=== PATIENT | female | born 1945 | race Caucasian/White ===

== ENCOUNTER 2017-06-05 21:24 | Emergency (ER) | payer MEDICARE ==
[~2017-06-05] VITALS: Ht 162.6 cm; Wt 45.4 kg
[~2017-06-05 21:24] MED LIST: ALBU18HF IH; AZIT250T PO; CEFP200T PO; DOCU-109 PO; DOXY100T9 PO; MAGN400C PO; TIOT4MIS3 IH
[2017-06-05] MEDS ORDERED: IPRATRPIUM/ALBUTEROL 0.5/2.5MG 3 ML NEBU. ONE (21:40)
[2017-06-05] MEDS ORDERED: IPRA3AMP NEB (22:26)
[2017-06-05] MEDS ORDERED: PRED20TA PO (22:26)
--- NOTE | 2017-06-05 22:28 | PHYS DOC ---
General Chief Complaint: SHORTNESS OF BREATH Stated Complaint: DIFFICULTY BREATHING Time Seen by MD: 22:23 Problems: History of Present Illness Allergies: Coded Allergies: influenza virus vaccine ts [id number] (36 mos+) (Verified Allergy, Unknown , 05/19/16) Orders, Labs, Meds EKG: Normal sinus rhythm 81 bpm, artifact noted anterior leads no true ST segment elevation, interpreted by me Departure Time of Disposition: 22:27 Disposition: 01 HOME, SELF-CARE Diagnosis: COPD exacerbation Condition: IMPROVED Patient Instructions: Chronic Obstructive Pulmonary Disease Exacerbation, Easy- to-Read Additional Instructions: Please review the patient education materials given by ED staff. Activity as tolerated. Continue current medications. Use the Ventolin med start pack via nebulizer every 4 hours and as needed. Prescription: DuoNeb, prednisone Follow-up with your doctor this week for recheck. Return to the ED with new or changing symptoms. KAYODE SONG DO Jun 05, 2017 22:28
[2017-06-05] MEDS ORDERED: ALBUTEROL SULFATE 2.5 MG/3 ML NEBU. ONE (22:31)
[2017-06-05] MEDS ORDERED: IPRATRPIUM/ALBUTEROL 0.5/2.5MG 3 ML NEBU. NEB ONE (23:00)
[2017-06-05] MEDS ORDERED: ALBUTEROL 3ML X5 NEB STARTPACK. INH ONE (23:00)
[2017-06-05] MEDS ORDERED: methylPREDNISolone SOD SUCC PF 125 MG/2 ML VIAL. IM ONE (23:00)
[2017-06-05 23:02] VITALS: BP 106/61
== END 2017-06-05 23:15 | disposition home or self-care (01) ==
LOC: ER 21:24
DX: J44.1 Chronic obstructive pulmonary disease with (acute) exacerbation (principal); Z88.7 Allergy status to serum and vaccine
CPT/HCPCS: 94640; 96372; 99284; J2930; J7620

== ENCOUNTER 2017-06-17 07:28 | Emergency (ER) | payer MEDICARE ==
[~2017-06-17 07:28] MED LIST changes: +IPRA3AMP NEB; +PRED20TA PO
--- NOTE | 2017-06-17 07:55 | PHYS DOC ---
Past History Past Medical History: COPD, Other Past Surgical History: Tonsillectomy, Tubal ligation, Other Smoking: Cigarettes, Less than 1pk/day Alcohol Use: None Drug Use: None Adult General Chief Complaint Chief Complaint: SHORTNESS OF BREATH HPI HPI 72-year-old female patient brought in by EMS because of shortness of breath. Patient has history of COPD and currently is smoking without home oxygen. Patient states for the last 3 days she had left upper chest and left arm pain as a constant heaviness pain that getting force in the morning. Patient denies shortness of breath and nausea and palpitation and dizziness with her chest pain. Patient rated her pain 1/10. Patient states she started to have intermittent shortness of breath since yesterday afternoon without cough and fever and chills. Patient states she took a shower this morning and felt severe shortness of breath with no change of her chest pain and called EMS. EMS reports the patient had O2 sat of 100% at room air and treated with oxygen and patient felt better after starting on oxygen. Review of Systems Review of Systems Constitutional: Denies fever Eyes: Denies change in visual acuity, redness, or eye pain [] HENT: Denies nasal congestion or sore throat [] Respiratory: Reports shortness of breath Cardiovascular: No additional information not addressed in HPI [] GI: Denies abdominal pain, nausea, vomiting, bloody stools or diarrhea [] : Denies dysuria or hematuria [] Musculoskeletal: Denies back pain or joint pain [] Integument: Denies rash or skin lesions [] Neurologic: Denies headache, focal weakness or sensory changes [] Endocrine: Denies polyuria or polydipsia [] All other systems were reviewed and found to be within normal limits, except as documented in this note. Current Medications Current Medications Current Medications Medications (Trade) Dose Ordered Sig/Amanda Start Time Stop Time Status Last Admin Dose Admin Albuterol/ Ipratropium (Duoneb) 3 ml 1X ONCE 06/17/17 08:00 06/17/17 08:01 Aspirin (Children'S Aspirin) 324 mg 1X ONCE 06/17/17 08:00 06/17/17 08:01 Methylprednisolone Sodium Succinate (SOLU-Medrol 125MG VIAL) 125 mg 1X ONCE 06/17/17 08:00 06/17/17 08:01 Allergies Allergies Allergies Coded Allergies Type Severity Reaction Last Updated Verified influenza virus vaccine ts [id number] (36 mos+) Allergy Unknown 05/19/16 Yes Physical Exam Physical Exam Constitutional: Well developed, well nourished, moderate distress, non-toxic appearance, anxious. [] HENT: Normocephalic, atraumatic, bilateral external ears normal, oropharynx moist, no oral exudates, nose normal. [] Eyes: PERRLA, EOMI, conjunctiva normal, no discharge. [] Neck: Normal range of motion, no tenderness, supple, no stridor. [] Cardiovascular:Heart rate regular rhythm, no murmur [] Lungs & Thorax: Mild respiratory distress with hyperventilation and intercostal distraction, Bilateral breath sounds clear to auscultation [] Abdomen: Bowel sounds normal, soft, no tenderness, no masses, no pulsatile masses. [] Skin: Warm, dry, no erythema, no rash. [] Back: No tenderness, no CVA tenderness. [] Extremities: No tenderness, no cyanosis, no clubbing, ROM intact, no edema. [] Neurologic: Alert and oriented X 3, normal motor function, normal sensory function, no focal deficits noted. [] Psychologic: Affect normal, judgement normal, mood normal. [] EKG EKG EKG interpreted by me. EKG at 741 showed normal sinus rhythm at rate of 72, poor R-wave progress in anteroseptal leads[] Radiology/Procedures Radiology/Procedures [] Course & Med Decision Making Course & Med Decision Making Pertinent Labs and Imaging studies reviewed. (See chart for details) Contusion of patient in ER showed 72-year-old female patient brought in by EMS because of shortness of breath. Patient had hyperventilation and anxiety at arrival to ER with normal O2 sats. Patient also complaining of chest pain for 3 days. Patient had remarkable lung evaluation. Labs and EKG and cardiac enzymes and d-dimer was unremarkable. Patient felt better after rest and had a stable vital signs and ambulated without problem. Patient treated with Norflex for chest wall pain and felt better. Plan discharge patient home with diagnose of anxiety and musculoskeletal chest pain. Dragon Disclaimer Dragon Disclaimer This electronic medical record was generated, in whole or in part, using a voice recognition dictation system. Critical Care Time Critical care time was [70] minutes exclusive of procedures. Departure Departure: Impression: Primary Impression: Dyspnea Additional Impressions: Tobacco abuse Tobacco abuse counseling Musculoskeletal chest pain Anxiety COPD exacerbation Disposition: 01 HOME, SELF-CARE (At 0945) Condition: IMPROVED Referrals: LONDON MASTERS (PCP) Patient Instructions: Anxiety and Panic Attacks, Chronic Obstructive Pulmonary Disease Exacerbation, Musculoskeletal Pain, Smoking Cessation Additional Instructions: Quit smoking Follow-up with your primary care physician in 2 or 3 days for more heart evaluation including stress tests Return to ER if not getting better Scripts Naproxen (NAPROXEN) 500 Mg Tablet.dr 1 TAB PO BID, #20 TAB Prov: ZORAIDA CRUZ MD 06/17/17 Methylprednisolone (MEDROL) 4 Mg Tab.ds.pk 1 PKG PO UD, #1 PKG Prov: ZORAIDA CRUZ MD 06/17/17 Cyclobenzaprine Hcl (CYCLOBENZAPRINE HCL) 5 Mg Tablet 1 TAB PO TID, #21 TAB Prov: ZORAIDA CRUZ MD 06/17/17 Problem Qualifiers ZORAIDA CRUZ MD Jun 17, 2017 07:55
[2017-06-17] MEDS ORDERED: methylPREDNISolone SOD SUCC PF 125 MG/2 ML VIAL. IV ONE (08:00)
[2017-06-17] MEDS ORDERED: ASPIRIN 81 MG TAB.CHEW PO ONE (08:00)
[2017-06-17] MEDS ORDERED: IPRATRPIUM/ALBUTEROL 0.5/2.5MG 3 ML NEBU. NEB ONE (08:00)
[2017-06-17 08:09] LABS: BASO # 0.1 x10^3/uL (0.0-0.2); BASO % 1 % (0-3); EOS % 0 % (0-3); HEMATOCRIT 41.9 % (36.0-47.0); HEMOGLOBIN 14.3 g/dL (12.0-15.5); LYMPH # 1.2 x10^3/uL (1.0-4.8); LYMPH % 16 % (24-48); MEAN CORPUSCULAR HEMOGLOBIN 32 pg (25-35); MEAN CORPUSCULAR HGB CONC 34 g/dL (31-37); MEAN CORPUSCULAR VOLUME 94 fL (79-100); MONO # 0.6 x10^3/uL (0.0-1.1); MONO % 8 % (0-9); NEUT # 5.2 x10^3uL (1.8-7.7); NEUT % 74 % (31-73); PLATELET COUNT 223 x10^3/uL (140-400); RED BLOOD COUNT 4.44 x10^6/uL (3.50-5.40); RED CELL DISTRIBUTION WIDTH 13.3 % (11.5-14.5)
--- NOTE | 2017-06-17 08:16 | RAD ---
History: Dyspnea AP view the chest was obtained at 0 8:08 AM hours. Comparison: May 27, 2016 The cardiomediastinal silhouette is normal. The pulmonary vasculature is normal. The lungs and pleural margins are clear. The lungs are hyperinflated. Impression: No evidence of an acute cardiopulmonary process.
[2017-06-17 08:32] LABS: ALBUMIN 4.2 g/dL (3.4-5.0); ALBUMIN/GLOBULIN RATIO 1.5 (1.0-1.7); CALCIUM 8.9 mg/dL (8.5-10.1); CREATININE 0.8 mg/dL (0.6-1.0); GFR 70.5; MAGNESIUM 2.1 mg/dL (1.8-2.4); POTASSIUM 3.8 mmol/L (3.5-5.1); TOTAL BILIRUBIN 0.7 mg/dL (0.2-1.0)
[2017-06-17 08:53] LABS: INFLUENZA A PATIENT NEGATIVE (NEGATIVE); INFLUENZA B PATIENT NEGATIVE (NEGATIVE)
[2017-06-17 09:22] LABS: BACTERIA,URINE 0 /HPF (0-FEW); BILIRUBIN,URINE NEG (NEG); CLARITY,URINE CLEAR; COLOR,URINE YELLOW; GLUCOSE,URINE NEG (NEG); NITRITE,URINE NEG (NEG); RBC,URINE 0 /HPF (0-2); SQUAMOUS EPITHELIAL CELL,UR OCC /LPF; UROBILINOGEN,URINE 0.2 mg/dL (0.2 mg/dL); WBC,URINE 0 /HPF (0-4)
[2017-06-17] MEDS ORDERED: ORPHENADRINE CITRATE 60 MG/2 ML VIAL. IV ONE (09:30)
[2017-06-17 09:33] VITALS: BP 109/61
[2017-06-17] MEDS ORDERED: NAPR500T8 PO (09:36)
[2017-06-17] MEDS ORDERED: CYCL5TAB PO (09:36)
[2017-06-17] MEDS ORDERED: METH4TAB2 PO (09:36)
--- NOTE | 2017-06-17 19:03 | EKG ---
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
== END 2017-06-17 09:55 | disposition home or self-care (01) ==
LOC: ER 07:28
DX: R06.00 Dyspnea, unspecified (principal); R07.9 Chest pain, unspecified; J44.1 Chronic obstructive pulmonary disease with (acute) exacerbation; F41.9 Anxiety disorder, unspecified; F17.210 Nicotine dependence, cigarettes, uncomplicated; Z90.89 Acquired absence of other organs; Z88.7 Allergy status to serum and vaccine
CPT/HCPCS: 36415; 71045; 80053; 81001; 82553; 83605; 83735; 83880; 84484; 85025; 85379; 85610; 87040; 87804; 93005; 94640; 96374; 96375; 99291; J2360; J2930; J7620

== ENCOUNTER → 2018-02-02 | Outpatient (CLI) | payer MEDICARE ==
[~2018-02-02] MED LIST changes: +CYCL5TAB PO; -IPRA3AMP NEB; +IPRA3AMP29 NEB; +METH4TAB2 PO; +NAPR500T8 PO
--- NOTE | 2018-02-02 09:46 | RAD ---
EXAM: CT Abdomen and Pelvis without IV contrast CLINICAL HISTORY: LLQ PAIN ON AND OFF FOR AWHILE, INCREASING IN INTENSITY, BLOATING, W/O PER ORDER. COMPARISON: 12/15/2004 TECHNIQUE: Helical CT of the abdomen and pelvis without intravenous contrast. Coronal and sagittal reformatted images were generated. PQRS compliance statement - One or more of the following individualized dose reduction techniques were utilized for this study: 1. Automated exposure control 2. Adjustment of the mA and/or kV according to patient size 3. Use of iterative reconstruction technique FINDINGS: Lack of intravenous contrast limits evaluation of solid organs, vasculature, and lymph nodes. Lower chest: Bibasilar scarring/atelectasis is seen. Trace pericardial fluid likely physiologic.. Abdomen and Pelvis: Hepatic attenuation is at the upper limits of normal. The liver is not enlarged. No definite liver lesion is identified. Gallbladder is unremarkable. No biliary ductal dilatation. Pancreas is unremarkable. Spleen and adrenal glands are unremarkable. No focal renal lesion. No hydronephrosis. No definite renal calculus. Evaluation of the small and large bowel is limited given lack of mesenteric fat and oral contrast. There is moderate to large volume colonic stool throughout the colon most prominent at the rectum. No evidence for bowel obstruction. The appendix is not visualized although no definite inflammatory changes are identified. Atherosclerotic calcifications of the aorta are seen. No abdominal or pelvic ascites. No definite lymphadenopathy but evaluation is limited as above. Mild thickening of the bladder wall likely from underdistention. Visualized uterus and adnexa is grossly unremarkable. Bones: Rightward curvature of the spine apex L2. No definite aggressive osseous lesion is identified. IMPRESSION: 1. No evidence for bowel obstruction. Moderate to large volume colonic stool content most prominent within the rectum. Evaluation of the bowel is limited given lack of oral contrast and mesenteric fat. 2. Mild thickening of the bladder wall may be due to underdistention. Associated cystitis is not excluded and can be correlated with urinalysis. 3. Atherosclerotic calcifications of the aorta are seen. Electronically signed by: Ruddy Lebron MD (02/02/2018 9:43 AM) [id number]
== END | disposition home or self-care (01) ==
LOC: CT 07:47
PROVIDERS: ATTEND Physician Assistant Medical
DX: I70.0 Atherosclerosis of aorta (principal); M43.8X6 Other specified deforming dorsopathies, lumbar region; J43.9 Emphysema, unspecified; Z87.891 Personal history of nicotine dependence; Z90.89 Acquired absence of other organs; Z88.7 Allergy status to serum and vaccine
CPT/HCPCS: 74176

== ENCOUNTER → 2018-04-12 | Outpatient (CLI) | payer MEDICARE ==
--- NOTE | 2018-04-13 09:22 | RAD ---
SMALL BOWEL SERIES History: Generalized abdominal pain greater on the left lower quadrant for 6 months Comparison: None other than CT exam February 02, 2018 Findings: Small bowel examination was performed. Stomach is relatively distended. There is normal transit of contrast through the small bowel, seen in the colon at about 50 minutes. Overall small bowel caliber is within normal limits without appreciable stricture. Terminal ileum is poorly defined. Impression: 1. No significant abnormality is identified by this exam. Electronically signed by: Torres Cai MD (04/13/2018 9:19 AM) [id number]
== END | disposition home or self-care (01) ==
LOC: RAD 08:05
PROVIDERS: ATTEND Internal Medicine Gastroenterology
DX: R10.32 Left lower quadrant pain (principal)
CPT/HCPCS: 74250

== ENCOUNTER 2018-05-19 16:17 | Emergency (ER) | payer MEDICARE ==
[~2018-05-19] VITALS: Ht 152.4 cm; Wt 47.6 kg
[2018-05-19] MEDS ORDERED: IPRATRPIUM/ALBUTEROL 0.5/2.5MG 3 ML NEBU. NEB ONE (16:30)
[2018-05-19] MEDS ORDERED: ALBUTEROL SULFATE 2.5 MG/3 ML NEBU. NEB ONE (16:30)
[2018-05-19] MEDS ORDERED: methylPREDNISolone SOD SUCC PF 125 MG/2 ML VIAL. IV ONE (16:30)
[2018-05-19 16:48] LABS: BASO # 0.1 x10^3/uL (0.0-0.2); BASO % 1 % (0-3); EOS # 0.1 x10^3/uL (0.0-0.7); EOS % 1 % (0-3); HEMATOCRIT 41.2 % (36.0-47.0); LYMPH # 1.8 x10^3/uL (1.0-4.8); LYMPH % 29 % (24-48); MEAN CORPUSCULAR HEMOGLOBIN 32 pg (25-35); MEAN CORPUSCULAR HGB CONC 34 g/dL (31-37); MEAN CORPUSCULAR VOLUME 93 fL (79-100); MONO # 0.6 x10^3/uL (0.0-1.1); MONO % 9 % (0-9); NEUT # 3.7 x10^3uL (1.8-7.7); NEUT % 59 % (31-73); PLATELET COUNT 213 x10^3/uL (140-400); RED BLOOD COUNT 4.43 x10^6/uL (3.50-5.40); RED CELL DISTRIBUTION WIDTH 13.4 % (11.5-14.5); WHITE BLOOD COUNT 6.3 x10^3/uL (4.0-11.0)
--- NOTE | 2018-05-19 16:48 | EKG ---
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
--- NOTE | 2018-05-19 16:48 | PHYS DOC ---
Past History Past Medical History: COPD Past Surgical History: No Surgical History Smoking: Cigarettes, Less than 1pk/day Alcohol Use: None Drug Use: None Adult General Chief Complaint Chief Complaint: SHORTNESS OF BREATH HPI HPI Patient is a 73 year old female who presents with shortness of breath. Patient has had a feeling of fullness in her low chest for the past 3-4 days. Little bit worse with exertion. Better with her rescue inhaler, albuterol. Shortness of breath began this morning and she was not receiving any relief with her rescue inhaler. Patient was brought in by EMS, and able to tolerate CPAP, but did tolerate and improved with a DuoNeb. Patient reports some subjective fever, no chills. No new lower extremity swelling. No chest pain. And no change with body position, laying down versus sitting up for the difficulty breathing. Patient did not receive the flu vaccine due to a reaction several years ago. [] Review of Systems Review of Systems Constitutional: Denies fever or chills [] Eyes: Denies change in visual acuity, redness, or eye pain [] HENT: Denies nasal congestion or sore throat [] Respiratory: See history of present illness[] Cardiovascular: No additional information not addressed in HPI [] GI: Denies abdominal pain, nausea, vomiting, bloody stools or diarrhea [] : Denies dysuria or hematuria [] Musculoskeletal: Denies back pain or joint pain [] Integument: Denies rash or skin lesions [] Neurologic: Denies headache, focal weakness or sensory changes [] Endocrine: Denies polyuria or polydipsia [] All other systems were reviewed and found to be within normal limits, except as documented in this note. Current Medications Current Medications Current Medications Medications (Trade) Dose Ordered Sig/Amanda Start Time Stop Time Status Last Admin Dose Admin Albuterol Sulfate (Ventolin) 2.5 mg 1X ONCE 05/19/18 16:30 18 16:31 UNV Albuterol/ Ipratropium (Duoneb) 3 ml 1X ONCE 05/19/18 16:30 18 16:31 UNV Methylprednisolone Sodium Succinate (SOLU-Medrol 125MG VIAL) 125 mg 1X ONCE 05/19/18 16:30 18 16:31 UNV Allergies Allergies Allergies Coded Allergies Type Severity Reaction Last Updated Verified influenza virus vaccine ts [id number] (36 mos+) Allergy Unknown 05/19/16 Yes Physical Exam Physical Exam Constitutional: Well developed, well nourished, no acute distress, non-toxic appearance. [] HENT: Normocephalic, atraumatic, bilateral external ears normal, oropharynx moist, no oral exudates, nose normal. [] Eyes: PERRLA, EOMI, conjunctiva normal, no discharge. [] Neck: Normal range of motion, no tenderness, supple, no stridor. [] Cardiovascular:Heart rate regular rhythm, no murmur [] Lungs & Thorax: Bilateral breath sounds diminished with late to end expiratory wheezes[] Abdomen: Bowel sounds normal, soft, no tenderness, no masses, no pulsatile masses. [] Skin: Warm, dry, no erythema, no rash. [] Back: No tenderness, no CVA tenderness. [] Extremities: No tenderness, no cyanosis, no clubbing, ROM intact, no edema. [] Neurologic: Alert and oriented X 3, normal motor function, normal sensory function, no focal deficits noted. [] Psychologic: Affect normal, judgement normal, mood normal. [] EKG EKG EKG shows a sinus rhythm, heart rate of 81 bpm, normal axis, QTC of 449 ms, nonspecific ST-T wave changes, no ST elevations[] Radiology/Procedures Radiology/Procedures Chest x-ray shows no infiltrate nor effusion, no pneumothorax[] Course & Med Decision Making Course & Med Decision Making Pertinent Labs and Imaging studies reviewed. (See chart for details) ED course: Patient arrived by EMS feeling better after her DuoNeb from them. She received several additional wreathing treatments while in the emergency department and felt better after each one. Her lungs were clear to auscultation and she maintained normal oxygen saturation while in the emergency department. After the return of the lab and imaging findings, these were relayed to the patient, and all questions were answered. Patient was discharged in improved condition. Decision making: There is no evidence of hypoxia, cardiac related issues regarding this difficulty breathing, no evidence of acute coronary syndrome, no CHF, no pneumonia, no pneumothorax.[] Dragon Disclaimer Dragon Disclaimer This electronic medical record was generated, in whole or in part, using a voice recognition dictation system. Departure Departure: Impression: Primary Impression: COPD exacerbation Disposition: 01 HOME, SELF-CARE Condition: GOOD Referrals: GUERRERO,LONDON M PA (PCP) Follow-up with your primary doctor in 2 days Patient Instructions: Chronic Obstructive Pulmonary Disease Exacerbation Additional Instructions: Follow-up with your primary care physician in 2 days. Increase the amount of vegetables in your diet, there is evidence that this can slow and even stop the progression of COPD. Don't smoke at all. Return to the ER if worsening difficulty breathing or any other concerns. Scripts Azithromycin (ZITHROMAX) 250 Mg Tablet 1 PKG PO UD for COPD exacerbation, #6 TAB Prov: VANESSA CHILDRESS DO 05/19/18 Prednisone (PREDNISONE) 50 Mg Tablet 1 TAB PO DAILY for INFLAMMATION, #5 TAB Prov: VANESSA CHILDRESS DO 05/19/18 Ipratropium Nebo (IPRATROPIUM BROMIDE) 0.2 Mg/1 Ml Solution 1 VIAL NEB Q6HRS for difficulty breathing, #1 B 0 Refills Prov: VANESSA CHILDRESS DO 05/19/18 VANESSA CHILDRESS DO May 19, 2018 16:48
--- NOTE | 2018-05-19 16:55 | RAD ---
AP chest. HISTORY: Shortness of breath AP view was taken of the chest. Lungs are clear. Heart is normal in size. There is no effusion. IMPRESSION: 1. No acute chest disease. Electronically signed by: Jett Vivas MD (05/19/2018 4:51 PM) [id number]
[2018-05-19 17:08] LABS: ALBUMIN 4.3 g/dL (3.4-5.0); ALBUMIN/GLOBULIN RATIO 1.5 (1.0-1.7); CALCIUM 9.4 mg/dL (8.5-10.1); CREATININE 0.8 mg/dL (0.6-1.0); GFR 70.3; POTASSIUM 4.4 mmol/L (3.5-5.1); TOTAL BILIRUBIN 0.3 mg/dL (0.2-1.0); TOTAL PROTEIN 7.2 g/dL (6.4-8.2)
[2018-05-19 17:46] LABS: INFLUENZA A PATIENT NEGATIVE (NEGATIVE); INFLUENZA B PATIENT NEGATIVE (NEGATIVE)
[2018-05-19 17:55] VITALS: BP 108/58
[2018-05-19] MEDS ORDERED: PRED50TA PO (17:58)
[2018-05-19] MEDS ORDERED: AZIT250T PO (17:58)
[2018-05-19] MEDS ORDERED: IPRA0.2S5 NEB (17:58)
== END 2018-05-19 18:00 | disposition home or self-care (01) ==
LOC: ER 16:17
DX: J44.1 Chronic obstructive pulmonary disease with (acute) exacerbation (principal); F17.210 Nicotine dependence, cigarettes, uncomplicated; Z88.7 Allergy status to serum and vaccine
CPT/HCPCS: 36415; 71045; 80053; 83880; 84484; 85025; 87804; 93005; 94640; 96374; 99284; J2930; J7613; J7620

== ENCOUNTER 2018-08-11 15:36 | Emergency (ER) | payer MEDICARE ==
[~2018-08-11] VITALS: Ht 162.6 cm; Wt 47.6 kg
[~2018-08-11 15:36] MED LIST changes: -ALBU18HF IH; +ALBU2.5V8 IH; +IPRA0.2S5 NEB; +PRED50TA PO
[2018-08-11 15:47] VITALS: BP 128/63
--- NOTE | 2018-08-11 16:06 | RAD ---
AP portable chest 08/11/2018. Reason for exam: Left-sided chest pain. Comparison is made with an exam of 05/19/2018. The lungs are hyperinflated. No infiltrate or effusion is seen. Heart size and pulmonary vascularity appear normal. IMPRESSION: COPD. No acute disease. Electronically signed by: Jamarcus Jimenez Jr., MD (08/11/2018 4:03 PM) [facility] [place]
[2018-08-11 16:27] LABS: BASO # 0.1 x10^3/uL (0.0-0.2); BASO % 1 % (0-3); EOS # 0.1 x10^3/uL (0.0-0.7); EOS % 1 % (0-3); HEMATOCRIT 37.8 % (36.0-47.0); HEMOGLOBIN 12.8 g/dL (12.0-15.5); LYMPH # 1.6 x10^3/uL (1.0-4.8); LYMPH % 24 % (24-48); MEAN CORPUSCULAR HEMOGLOBIN 32 pg (25-35); MEAN CORPUSCULAR HGB CONC 34 g/dL (31-37); MEAN CORPUSCULAR VOLUME 94 fL (79-100); MONO # 0.6 x10^3/uL (0.0-1.1); MONO % 9 % (0-9); NEUT # 4.1 x10^3uL (1.8-7.7); NEUT % 64 % (31-73); PLATELET COUNT 210 x10^3/uL (140-400); RED BLOOD COUNT 4.04 x10^6/uL (3.50-5.40); RED CELL DISTRIBUTION WIDTH 13.1 % (11.5-14.5); WHITE BLOOD COUNT 6.4 x10^3/uL (4.0-11.0)
[2018-08-11 16:49] LABS: ALBUMIN 3.9 g/dL (3.4-5.0); ALBUMIN/GLOBULIN RATIO 1.6 (1.0-1.7); CALCIUM 8.6 mg/dL (8.5-10.1); GFR 54.3; MAGNESIUM 2.1 mg/dL (1.8-2.4); TOTAL BILIRUBIN 0.3 mg/dL (0.2-1.0); TOTAL PROTEIN 6.4 g/dL (6.4-8.2)
[2018-08-11] MEDS ORDERED: CYCL-331 PO ×2 (16:57→17:04)
[2018-08-11] MEDS ORDERED: NAPR-683 PO ×2 (16:57→17:04)
--- NOTE | 2018-08-11 16:58 | PHYS DOC ---
Past History Past Medical History: COPD Past Surgical History: Tubal ligation Smoking: Quit Less Than 1 Year Alcohol Use: None Drug Use: None Adult General Chief Complaint Chief Complaint: CHEST WALL PAIN HPI HPI Patient is a 73 year old female who presents with of left lower chest wall tightness since she got out of the shower this morning as a constant pressure pain that getting worse with movement and taking deep breaths. Patient denies radiation of pain, nausea and vomiting, cough, palpitation, fever and chills, recent fall. Patient complaining of feeling shortness of breath because of the pain with taking deep breaths. Patient states she was exposed to record better 2 days ago. Patient does not have cardiac risk factor except for history of previous smoking. Review of Systems Review of Systems Constitutional: Denies fever or chills [] Eyes: Denies change in visual acuity, redness, or eye pain [] HENT: Denies nasal congestion or sore throat [] Respiratory: Denies cough or shortness of breath [] Cardiovascular: No additional information not addressed in HPI [] GI: Denies abdominal pain, nausea, vomiting, bloody stools or diarrhea [] : Denies dysuria or hematuria [] Musculoskeletal: Denies back pain or joint pain [] Integument: Denies rash or skin lesions [] Neurologic: Denies headache, focal weakness or sensory changes [] Endocrine: Denies polyuria or polydipsia [] All other systems were reviewed and found to be within normal limits, except as documented in this note. Allergies Allergies Allergies Coded Allergies Type Severity Reaction Last Updated Verified influenza virus vaccine ts [id number] (36 mos+) Allergy Unknown 05/19/16 Yes Physical Exam Physical Exam Constitutional: Well developed, well nourished, mild distress, non-toxic appearance. [] HENT: Normocephalic, atraumatic. Eyes: PERRLA, EOMI, conjunctiva normal, no discharge. [] Neck: Normal range of motion, no tenderness, supple, no stridor. [] Cardiovascular:Heart rate regular rhythm, no murmur [] Lungs & Thorax: Bilateral breath sounds clear to auscultation [] Abdomen: Bowel sounds normal, soft, no tenderness, no masses, no pulsatile masses. [] Skin: Warm, dry, no erythema, no rash. [] Back: No tenderness, no CVA tenderness. [] Extremities: No tenderness, no cyanosis, no clubbing, ROM intact, no edema. [] Neurologic: Alert and oriented X 3, normal motor function, normal sensory function, no focal deficits noted. [] Psychologic: Affect normal, judgement normal, mood normal. [] Current Patient Data Vital Signs Vital Signs Date Time Temp Pulse Resp B/P (MAP) Pulse Ox O2 Delivery O2 Flow Rate FiO2 08/11/18 15:47 Room Air 08/11/18 15:47 98.2 90 20 Lab Results Laboratory Tests Test 08/11/18 16:00 White Blood Count 6.4 x10^3/uL (4.0-11.0) Red Blood Count 4.04 x10^6/uL (3.50-5.40) Hemoglobin 12.8 g/dL (12.0-15.5) Hematocrit 37.8 % (36.0-47.0) Mean Corpuscular Volume 94 fL (79-100) Mean Corpuscular Hemoglobin 32 pg (25-35) Mean Corpuscular Hemoglobin Concent 34 g/dL (31-37) Red Cell Distribution Width 13.1 % (11.5-14.5) Platelet Count 210 x10^3/uL (140-400) Neutrophils (%) (Auto) 64 % (31-73) Lymphocytes (%) (Auto) 24 % (24-48) Monocytes (%) (Auto) 9 % (0-9) Eosinophils (%) (Auto) 1 % (0-3) Basophils (%) (Auto) 1 % (0-3) Neutrophils # (Auto) 4.1 x10^3uL (1.8-7.7) Lymphocytes # (Auto) 1.6 x10^3/uL (1.0-4.8) Monocytes # (Auto) 0.6 x10^3/uL (0.0-1.1) Eosinophils # (Auto) 0.1 x10^3/uL (0.0-0.7) Basophils # (Auto) 0.1 x10^3/uL (0.0-0.2) EKG EKG EKG interpreted by me. EKG at 1502 showed normal sinus rhythm at rate of 52, normal MI and QT, poor R-wave progress on her lateral leads, no acute ST and T- wave abnormalities. Radiology/Procedures Radiology/Procedures [address] [address] IMAGING REPORT Signed PATIENT: CEM ABARCA ACCOUNT: [id number] : 1945 LOCATION: ER AGE: 73 SEX: F EXAM STATUS: PRE ER ORD. PHYSICIAN: ZORAIDA CRUZ MD REASON: left chest pain PROCEDURE: PORTABLE CHEST 1V AP portable chest 08/11/2018. Reason for exam: Left-sided chest pain. Comparison is made with an exam of 05/19/2018. The lungs are hyperinflated. No infiltrate or effusion is seen. Heart size and pulmonary vascularity appear normal. IMPRESSION: COPD. No acute disease. Electronically signed by: Carly Jimenez Jr., MD (08/11/2018 4:03 PM) [facility] [place] [place] DICTATED AND SIGNED BY: CARLY JIMENEZ Jr, MD DATE: 08/11/18 1606 CC: ZORAIDA CRUZ MD; TOM ROPER MD ~ Course & Med Decision Making Course & Med Decision Making Pertinent Labs and Imaging studies reviewed. (See chart for details) [] Dragon Disclaimer Dragon Disclaimer This electronic medical record was generated, in whole or in part, using a voice recognition dictation system. Departure Departure: Impression: Primary Impression: Musculoskeletal chest pain Additional Impressions: Muscle strain Dehydration Disposition: 01 HOME, SELF-CARE (at 1700) Condition: IMPROVED Referrals: TOM ROPER MD (PCP) Patient Instructions: Chest Wall Pain, Dehydration, Adult, Muscle Strain Additional Instructions: Drink plenty of liquids Follow-up with your primary care physician in 3-5 days Return to ER if not getting better Apply ice on the affected area Scripts Naproxen (NAPROSYN) 500 Mg Tablet 500 MG PO BID for pain, #20 TAB Prov: ZORAIDA CRUZ MD 08/11/18 Cyclobenzaprine Hcl (CYCLOBENZAPRINE HCL) 10 Mg Tablet 1 TAB PO TID for pain, #30 TAB Prov: ZORAIDA CRUZ MD 08/11/18 Problem Qualifiers ZORAIDA CRUZ MD Aug 11, 2018 16:57
[2018-08-11] MEDS ORDERED: KETOROLAC 30 MG/ML VIAL. IV ONE (17:00)
--- NOTE | 2018-08-14 12:19 | EKG ---
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
[2018-10-06] MEDS ORDERED: AZIT250T PO (15:35)
[2018-10-06] MEDS ORDERED: PRED20TA PO (15:40)
== END 2018-08-11 17:30 | disposition home or self-care (01) ==
LOC: ER 15:36
DX: S29.011A Strain of muscle and tendon of front wall of thorax, initial encounter (principal); E86.0 Dehydration; J44.9 Chronic obstructive pulmonary disease, unspecified; Z87.891 Personal history of nicotine dependence; Z88.7 Allergy status to serum and vaccine; X58.XXXA Exposure to other specified factors, initial encounter; Y93.89 Activity, other specified; Y92.89 Other specified places as the place of occurrence of the external cause; Y99.8 Other external cause status
CPT/HCPCS: 36415; 71045; 80053; 82550; 83735; 83880; 84484; 85025; 93005; 96374; 99284; J1885

== ENCOUNTER 2018-08-15 09:49 | Emergency (ER) | payer MEDICARE ==
[~2018-08-15] VITALS: Ht 162.6 cm; Wt 50.0 kg
[~2018-08-15 09:49] MED LIST changes: +CYCL-331 PO; +NAPR-683 PO
[2018-08-15] MEDS ORDERED: methylPREDNISolone SOD SUCC PF 125 MG/2 ML VIAL. ONE (10:02)
[2018-08-15] MEDS ORDERED: IPRATRPIUM/ALBUTEROL 0.5/2.5MG 3 ML NEBU. ONE (10:02)
[2018-08-15 10:14] LABS: BASO # 0.1 x10^3/uL (0.0-0.2); BASO % 1 % (0-3); EOS # 0.1 x10^3/uL (0.0-0.7); EOS % 1 % (0-3); HEMATOCRIT 38.9 % (36.0-47.0); HEMOGLOBIN 13.1 g/dL (12.0-15.5); LYMPH # 1.6 x10^3/uL (1.0-4.8); LYMPH % 30 % (24-48); MEAN CORPUSCULAR HEMOGLOBIN 31 pg (25-35); MEAN CORPUSCULAR HGB CONC 34 g/dL (31-37); MEAN CORPUSCULAR VOLUME 93 fL (79-100); MONO # 0.4 x10^3/uL (0.0-1.1); MONO % 8 % (0-9); NEUT # 3.1 x10^3uL (1.8-7.7); NEUT % 60 % (31-73); PLATELET COUNT 215 x10^3/uL (140-400); RED CELL DISTRIBUTION WIDTH 13.3 % (11.5-14.5); WHITE BLOOD COUNT 5.3 x10^3/uL (4.0-11.0)
[2018-08-15] MEDS ORDERED: IOHEXOL 300 MG/ML 75 ML VIAL. IV ONE (10:15)
[2018-08-15] MEDS ORDERED: IOHEXOL 350 MG/ML 100 ML VIAL. IV ONE (10:30)
[2018-08-15] MEDS ORDERED: methylPREDNISolone SOD SUCC PF 125 MG/2 ML VIAL. IV ONE (10:30)
[2018-08-15] MEDS ORDERED: IPRATRPIUM/ALBUTEROL 0.5/2.5MG 3 ML NEBU. NEB ONE (10:30)
[2018-08-15 10:35] LABS: ALBUMIN 4.4 g/dL (3.4-5.0); ALBUMIN/GLOBULIN RATIO 2.1 (1.0-1.7); CALCIUM 9.1 mg/dL (8.5-10.1); CREATININE 0.8 mg/dL (0.6-1.0); GFR 70.3; POTASSIUM 3.7 mmol/L (3.5-5.1); TOTAL BILIRUBIN 0.5 mg/dL (0.2-1.0); TOTAL PROTEIN 6.5 g/dL (6.4-8.2)
--- NOTE | 2018-08-15 11:12 | RAD ---
EXAM: CT chest with contrast - pulmonary embolus protocol CLINICAL HISTORY: Omni 350 75cc: PE protocol: Chest pain, short of air, lightheaded. COMPARISON: None. TECHNIQUE: CT of the chest following the administration of intravenous contrast during the pulmonary arterial phase. Axial, coronal and sagittal reformatted images were generated including MIP images. ---PQRS compliance statement - One or more of the following individualized dose reduction techniques were utilized for this study: 1. Automated exposure control 2. Adjustment of the mA and/or kV according to patient size 3. Use of iterative reconstruction technique--- FINDINGS: CHEST: Diagnostic quality: Adequate. Pulmonary emboli: None seen Right heart strain: None Pulmonary arteries: Normal in caliber. The heart is not enlarged. No pericardial effusion. No pleural effusion or pneumothorax. Bilateral emphysematous changes are seen. No lobar consolidation. Linear opacities in the lingula and medial right lower lobe likely scarring/atelectasis. A 6 mm right lower lobe lung nodule is seen (series 7 image 81). Calcified nodule is seen within the left thyroid. No mediastinal or hilar lymphadenopathy by size or tear. No axillary lymphadenopathy. Visualized Upper abdomen: Subcentimeter hypodense lesion at the right hepatic dome, too small to accurately characterize. Upper abdomen is otherwise grossly unremarkable. Bones: Decreased bone mineral density. IMPRESSION: 1. No evidence for acute pulmonary embolus 2. Bilateral emphysematous changes are seen. 3. A 6 mm right lower lobe lung nodule is seen. Per Fleischner Society guidelines, follow up in one year is recommended. Electronically signed by: Ruddy Lebron MD (08/15/2018 11:09 AM) [facility]
[2018-08-15 11:13] VITALS: BP 119/54
[2018-08-15] MEDS ORDERED: AZIT250T PO (11:37)
[2018-08-15] MEDS ORDERED: METH4TAB2 PO (11:37)
--- NOTE | 2018-08-15 11:37 | PHYS DOC ---
Past History Past Medical History: COPD Past Surgical History: Tonsillectomy, Tubal ligation Smoking: Quit Less Than 1 Year Alcohol Use: None Drug Use: None Adult General Chief Complaint Chief Complaint: SHORTNESS OF BREATH HPI HPI Patient is a due to year old female who brought in. We by her daughter because of shortness of breath. Patient states she was inside of her car and suddenly felt shortness of breath and decided to return to her home. Patient states she had left chest wall pain and seen in this emergency room 4 days ago without abnormal finding. Patient states she feels a pressure feeling inside of her chest and thinks a tumor growing inside of her. Patient complaining of mild dizziness and increasing of chronic cough. She denies fever and chills, reports , focal neuro deficit, nasal congestion, history of the same problem. Review of Systems Review of Systems Constitutional: Denies fever or chills [] Eyes: Denies change in visual acuity, redness, or eye pain [] HENT: Denies nasal congestion or sore throat [] Respiratory: Reports cough and shortness of breath Cardiovascular: No additional information not addressed in HPI [] GI: Denies abdominal pain, nausea, vomiting, bloody stools or diarrhea [] : Denies dysuria or hematuria [] Musculoskeletal: Denies back pain or joint pain [] Integument: Denies rash or skin lesions [] Neurologic: Denies headache, focal weakness or sensory changes [] Endocrine: Denies polyuria or polydipsia [] All other systems were reviewed and found to be within normal limits, except as documented in this note. Current Medications Current Medications Current Medications Medications (Trade) Dose Ordered Sig/Amanda Start Time Stop Time Status Last Admin Dose Admin Albuterol/ Ipratropium (Duoneb) 3 ml STK-MED ONCE 08/15/18 10:02 08/15/18 10:03 DC Iohexol (Omnipaque 300 Mg/ml) 75 ml 1X ONCE 08/15/18 10:15 08/15/18 10:16 DC Iohexol (Omnipaque 350 Mg/ml) 100 ml 1X ONCE 08/15/18 10:30 08/15/18 10:31 DC 08/15/18 10:23 100 ML Methylprednisolone Sodium Succinate (SOLU-Medrol 125MG VIAL) 125 mg STK-MED ONCE 08/15/18 10:02 08/15/18 10:03 DC Allergies Allergies Allergies Coded Allergies Type Severity Reaction Last Updated Verified influenza virus vaccine ts [id number] (36 mos+) Allergy Unknown 05/19/16 Yes Physical Exam Physical Exam Constitutional: Well developed, moderate distress, non-toxic appearance. [] HENT: Normocephalic, atraumatic, bilateral external ears normal, oropharynx moist, no oral exudates, nose normal. [] Eyes: PERRLA, EOMI, conjunctiva normal, no discharge. [] Neck: Normal range of motion, no tenderness, supple, no stridor. [] Cardiovascular:Heart rate regular rhythm, no murmur [] Lungs & Thorax: Hyperventilation with respiratory distress and intercostal retractions and tachypnea him a decrease of air movement bilateral lung. Abdomen: Bowel sounds normal, soft, no tenderness, no masses, no pulsatile masses. [] Skin: Warm, dry, no erythema, no rash. [] Back: No tenderness, no CVA tenderness. [] Extremities: No tenderness, no cyanosis, no clubbing, ROM intact, no edema. [] Neurologic: Alert and oriented X 3, normal motor function, normal sensory function, no focal deficits noted. [] Psychologic: Affect very anxious, mood normal. [] Current Patient Data Vital Signs Vital Signs Date Time Temp Pulse Resp B/P (MAP) Pulse Ox O2 Delivery O2 Flow Rate FiO2 08/15/18 11:13 90 18 119/54 (75) 96 Room Air 08/15/18 09:53 98.2 Lab Results Laboratory Tests Test 08/15/18 09:58 White Blood Count 5.3 x10^3/uL (4.0-11.0) Red Blood Count 4.20 x10^6/uL (3.50-5.40) Hemoglobin 13.1 g/dL (12.0-15.5) Hematocrit 38.9 % (36.0-47.0) Mean Corpuscular Volume 93 fL (79-100) Mean Corpuscular Hemoglobin 31 pg (25-35) Mean Corpuscular Hemoglobin Concent 34 g/dL (31-37) Red Cell Distribution Width 13.3 % (11.5-14.5) Platelet Count 215 x10^3/uL (140-400) Neutrophils (%) (Auto) 60 % (31-73) Lymphocytes (%) (Auto) 30 % (24-48) Monocytes (%) (Auto) 8 % (0-9) Eosinophils (%) (Auto) 1 % (0-3) Basophils (%) (Auto) 1 % (0-3) Neutrophils # (Auto) 3.1 x10^3uL (1.8-7.7) Lymphocytes # (Auto) 1.6 x10^3/uL (1.0-4.8) Monocytes # (Auto) 0.4 x10^3/uL (0.0-1.1) Eosinophils # (Auto) 0.1 x10^3/uL (0.0-0.7) Basophils # (Auto) 0.1 x10^3/uL (0.0-0.2) D-Dimer (Blanka) 0.24 mg/L (0.00-0.50) Sodium Level 140 mmol/L (136-145) Potassium Level 3.7 mmol/L (3.5-5.1) Chloride Level 103 mmol/L (98-107) Carbon Dioxide Level 24 mmol/L (21-32) Anion Gap 13 (6-14) Blood Urea Nitrogen 12 mg/dL (7-20) Creatinine 0.8 mg/dL (0.6-1.0) Estimated GFR (Cockcroft-Gault) 70.3 BUN/Creatinine Ratio 15 (6-20) Glucose Level 99 mg/dL (70-99) Lactic Acid Level 2.6 mmol/L (0.4-2.0) H Calcium Level 9.1 mg/dL (8.5-10.1) Total Bilirubin 0.5 mg/dL (0.2-1.0) Aspartate Amino Transferase (AST) 26 U/L (15-37) Alanine Aminotransferase (ALT) 23 U/L (14-59) Alkaline Phosphatase 90 U/L (46-116) Creatine Kinase 149 U/L (26-192) Troponin I Quantitative < 0.017 ng/mL (0-0.055) IT-Cvc-W-Type Natriuretic Peptide 275 pg/mL (0-124) H Total Protein 6.5 g/dL (6.4-8.2) Albumin 4.4 g/dL (3.4-5.0) Albumin/Globulin Ratio 2.1 (1.0-1.7) H EKG EKG EKG interpreted by me. EKG at 0 955 showed normal sinus rhythm at rate of 90, right fourth axis, poor R-wave progress in anteroseptal leads, no acute ST and T -wave abnormalities. Radiology/Procedures Radiology/Procedures [address] [address] IMAGING REPORT Signed PATIENT: CEM ABARCA ACCOUNT: [id number] : 1945 LOCATION: ER AGE: 73 SEX: F EXAM STATUS: REG ER ORD. PHYSICIAN: ZORAIDA CRUZ MD REASON: Chest pain, shortness of breath, lightheaded PROCEDURE: CT ANGIOGRAPHY CHEST EXAM: CT chest with contrast - pulmonary embolus protocol CLINICAL HISTORY: Omni 350 75cc: PE protocol: Chest pain, short of air, lightheaded. COMPARISON: None. TECHNIQUE: CT of the chest following the administration of intravenous contrast during the pulmonary arterial phase. Axial, coronal and sagittal reformatted images were generated including MIP images. ---PQRS compliance statement - One or more of the following individualized dose reduction techniques were utilized for this study: 1. Automated exposure control 2. Adjustment of the mA and/or kV according to patient size 3. Use of iterative reconstruction technique--- FINDINGS: CHEST: Diagnostic quality: Adequate. Pulmonary emboli: None seen Right heart strain: None Pulmonary arteries: Normal in caliber. The heart is not enlarged. No pericardial effusion. No pleural effusion or pneumothorax. Bilateral emphysematous changes are seen. No lobar consolidation. Linear opacities in the lingula and medial right lower lobe likely scarring/atelectasis. A 6 mm right lower lobe lung nodule is seen (series 7 image 81). Calcified nodule is seen within the left thyroid. No mediastinal or hilar lymphadenopathy by size or tear. No axillary lymphadenopathy. Visualized Upper abdomen: Subcentimeter hypodense lesion at the right hepatic dome, too small to accurately characterize. Upper abdomen is otherwise grossly unremarkable. Bones: Decreased bone mineral density. IMPRESSION: 1. No evidence for acute pulmonary embolus 2. Bilateral emphysematous changes are seen. 3. A 6 mm right lower lobe lung nodule is seen. Per Fleischner Society guidelines, follow up in one year is recommended. Electronically signed by: Ruddy Hickey MD (08/15/2018 11:09 AM) [facility] DICTATED AND SIGNED BY: RUDDY HICKEY MD DATE: 08/15/18 0993 CC: ZORAIDA CRUZ MD; TOM ROPER MD ~ Course & Med Decision Making Course & Med Decision Making Pertinent Labs and Imaging studies reviewed. (See chart for details) Evaluation of patient in ER showed 73-year-old female patient presented with respiratory distress and hyperventilation to ER. Patient was very anxious and states that she thinks she has a tumor in her chest. Patient was seen in this emergency room4 days ago with complaining of chest pain and had unremarkable lab valuation. Patient had O2 sat of 88-92% at arrival to ER that improved in the short time with 2 L of oxygen to 100% . Patient had CT angio of chest with 6 mm right lung nodule without sign of PE or pneumonia or pulmonary edema. Patient had lactic acid of 2.6 without leukocytosis, tachycardia, fever.Her elevation of lactic acid could be related to hyperventilation. Patient had stable O2 sat without oxygen ambulated without hypoxia or tachycardia or shortness of breath. Plan discharge patient home to diagnose of hyperventilation and COPD exacerbation and instruction to follow up with her primary care physician. Dragon Disclaimer Dragon Disclaimer This electronic medical record was generated, in whole or in part, using a voice recognition dictation system. Departure Departure: Impression: Primary Impression: COPD exacerbation Additional Impressions: Hypoxia Lung nodule, solitary Hyperventilation Musculoskeletal chest pain Disposition: HOME, SELF-CARE (at 1134) Condition: IMPROVED Referrals: TOM ROPER MD (PCP) Patient Instructions: Chronic Obstructive Pulmonary Disease Exacerbation, Hyperventilation Additional Instructions: Drink plenty of liquids Follow-up with your primary care physician in 3-5 days Return to ER if not getting better Scripts Azithromycin (ZITHROMAX) 250 Mg Tablet 1 PKG PO UD for infection, #1 PKG Prov: ZORAIDA CRUZ MD 08/15/18 Methylprednisolone (MEDROL) 4 Mg Tab.ds.pk 1 PKG PO UD for inflammation, #1 PKG Prov: ZORAIDA CRUZ MD 08/15/18 Critical Care Time Critical care time was 90 minutes exclusive of procedures. Problem Qualifiers ZORAIDA CRUZ MD Aug 15, 2018 11:37
--- NOTE | 2018-08-15 14:15 | EKG ---
[address] [address] Test Date: 2018-08-15 Test Time: 09:55:38 Pat Name: CEM ABARCA Department: Room: Gender: F Fitter Type Bar And Segment: TRINIDAD : 1945 Requested By: ZORAIDA CRUZ Order Number: [id number] Reading MD: Ari Rose MD Measurements Intervals [place] Rate: 90 P: 90 NH: 158 QRS: 96 QRSD: 80 T: 60 QT: 356 QTc: 440 Interpretive Statements SINUS RHYTHM RIGHTWARD AXIS QRS(T) CONTOUR ABNORMALITY CONSISTENT WITH ANTEROSEPTAL INFARCT PROBABLY OLD ABNORMAL ECG Electronically Signed On 08-16-2018 11:08:28 [employer]OD EXPEDITOR by Ari Rose MD
[2018-10-06] MEDS ORDERED: AZIT250T PO (15:35)
[2018-10-06] MEDS ORDERED: PRED20TA PO (15:40)
== END 2018-08-15 11:58 | disposition home or self-care (01) ==
LOC: ER 09:49
DX: J44.1 Chronic obstructive pulmonary disease with (acute) exacerbation (principal); R91.1 Solitary pulmonary nodule; R06.4 Hyperventilation; R07.89 Other chest pain; Z87.891 Personal history of nicotine dependence; Z88.7 Allergy status to serum and vaccine
CPT/HCPCS: 99284; J2930; J7620; 36415; 71275; 80053; 82550; 83605; 83880; 84484; 85025; 85379; 87040; 93005; 94640; 96374; Q9967

== ENCOUNTER 2018-08-18 17:24 | Inpatient (IN) | payer MEDICARE ==
[~2018-08-18] VITALS: Ht 162.6 cm; Wt 49.5 kg
--- NOTE | 2018-08-18 17:28 | ED.ADGEN ---
Past History Past Medical History: COPD Past Surgical History: Tonsillectomy, Tubal ligation Smoking: Quit Less Than 1 Year Alcohol Use: None Drug Use: None Adult General Chief Complaint Chief Complaint ".. I feel weak... shakey..." HPI HPI Patient is a 73 year old female who presents with above hx and complaints of increased weakness with dyspnea. Patient has known history of severe COPD/ emphysema. Patient has been seen on 08/15 and 08/11 and with her primary care Dr. Mesa this morning for similar symptoms. Pt. patient has essentially outpatient treatment failure for COPD exacerbation and her weakness with oral antibiotics and steroids. Patient denies any specific ill contacts. No recent travel. No change in medications. No specific history of immunosuppression. Patient is tachycardic and marked dyspnea with minimal activity. Reviewed prior chest x-rays and CT findings. Pt. has approximately 80 pack yr. smoking hx. Quit smoking approximately 1 yr. ago. Pt. has noted dyspnea while just sitting in bed. Review of Systems Review of Systems Constitutional: Subjective complaints of fever or chills [] Eyes: Denies change in visual acuity, redness, or eye pain [] HENT: Denies nasal congestion or sore throat [] Respiratory: History of a nonproductive cough and marked dyspnea, wheezing with minimal activity. Cardiovascular: No additional information not addressed in HPI [] GI: Denies abdominal pain, nausea, vomiting, bloody stools or diarrhea [] : Denies dysuria or hematuria [] Musculoskeletal: Denies back pain or joint pain. Patient has complaints of generalized weakness Integument: Denies rash or skin lesions [] Neurologic: Denies headache, focal weakness or sensory changes [] Endocrine: Denies polyuria or polydipsia [] All other systems were reviewed and found to be within normal limits, except as documented in this note. Family History Family History Noncontributory to her presentation Current Medications Current Medications Current Medications Medications (Trade) Dose Ordered Sig/Amanda Start Time Stop Time Status Last Admin Dose Admin Lactated Ringer's 1,000 ml @ 100 mls/hr Q10H 08/18/18 17:45 08/19/18 03:44 DC 08/18/18 18:16 100 MLS/HR Ondansetron HCl (Zofran) 4 mg PRN Q4HRS PRN 08/18/18 21:30 08/19/18 21:29 See nursing for home meds Allergies Allergies Allergies Coded Allergies Type Severity Reaction Last Updated Verified influenza virus vaccine ts [id number] (36 mos+) Allergy Unknown 05/19/16 Yes Physical Exam Physical Exam Constitutional: In moderately acute distress, non-toxic appearance. [] HENT: Normocephalic, atraumatic, bilateral external ears normal, oropharynx moist, no oral exudates, nose normal. [] Eyes: PERRLA, EOMI, conjunctiva normal, no discharge. [] Neck: Normal range of motion, no tenderness, supple, no stridor. [] Cardiovascular: Tachycardic Heart rate regular rhythm, no murmur []PMI to the left Lungs & Thorax: Bilateral breath sounds equal at apexes with scattered wheezes throughout on auscultation []Unable to complete min. activity with out marked increased dyspnea Abdomen: Bowel sounds normal, soft, no tenderness, no masses, no pulsatile masses. [] Skin: Warm, dry, no erythema, no rash. Poor turgor Back: No tenderness, no CVA tenderness. [] Extremities: No tenderness, no cyanosis, no clubbing, ROM intact, no edema. No appreciable cording. Arthritic changes. Generalized weakness. Neurologic: Alert and oriented X 3, moves all ext on request, has generalized weakness, required assistance in ambulation, , no obvious focal deficits noted. []Distal sensation present. Psychologic: Affect anxious, judgement normal, mood normal. [] Current Patient Data Vital Signs Vital Signs Date Time Temp Pulse Resp B/P (MAP) Pulse Ox O2 Delivery O2 Flow Rate FiO2 08/18/18 17:24 97.9 89 36 100 Room Air Lab Results Laboratory Tests Test 08/18/18 17:53 08/18/18 18:25 White Blood Count 9.6 x10^3/uL (4.0-11.0) # Red Blood Count 4.29 x10^6/uL (3.50-5.40) Hemoglobin 13.5 g/dL (12.0-15.5) Hematocrit 40.0 % (36.0-47.0) Mean Corpuscular Volume 93 fL (79-100) Mean Corpuscular Hemoglobin 32 pg (25-35) Mean Corpuscular Hemoglobin Concent 34 g/dL (31-37) Red Cell Distribution Width 13.3 % (11.5-14.5) Platelet Count 232 x10^3/uL (140-400) Neutrophils (%) (Auto) 80 % (31-73) H Lymphocytes (%) (Auto) 12 % (24-48) L Monocytes (%) (Auto) 7 % (0-9) Eosinophils (%) (Auto) 0 % (0-3) Basophils (%) (Auto) 0 % (0-3) Neutrophils # (Auto) 7.7 x10^3uL (1.8-7.7) Lymphocytes # (Auto) 1.2 x10^3/uL (1.0-4.8) Monocytes # (Auto) 0.7 x10^3/uL (0.0-1.1) Eosinophils # (Auto) 0.0 x10^3/uL (0.0-0.7) Basophils # (Auto) 0.0 x10^3/uL (0.0-0.2) Erythrocyte Sedimentation Rate 2 (0-25) D-Dimer (Blanka) < 0.19 mg/L (0.00-0.50) Sodium Level 140 mmol/L (136-145) Potassium Level 4.2 mmol/L (3.5-5.1) Chloride Level 99 mmol/L (98-107) Carbon Dioxide Level 28 mmol/L (21-32) Anion Gap 13 (6-14) Blood Urea Nitrogen 12 mg/dL (7-20) Creatinine 0.8 mg/dL (0.6-1.0) Estimated GFR (Cockcroft-Gault) 70.3 Glucose Level 126 mg/dL (70-99) H Calcium Level 9.8 mg/dL (8.5-10.1) Magnesium Level 2.2 mg/dL (1.8-2.4) Total Bilirubin 0.5 mg/dL (0.2-1.0) Direct Bilirubin 0.2 mg/dL (0.0-0.2) Aspartate Amino Transferase (AST) 24 U/L (15-37) Alanine Aminotransferase (ALT) 31 U/L (14-59) Alkaline Phosphatase 99 U/L (46-116) Creatine Kinase 125 U/L (26-192) Troponin I Quantitative < 0.017 ng/mL (0-0.055) WF-Lsu-G-Type Natriuretic Peptide 329 pg/mL (0-124) H Total Protein 7.1 g/dL (6.4-8.2) Albumin 4.6 g/dL (3.4-5.0) Urine Collection Type Unknown Urine Color Yellow Urine Clarity Clear Urine pH 7.0 Urine Specific [place] 1.010 Urine Protein Neg (NEG-TRACE) Urine Glucose (UA) Neg mg/dL (NEG) Urine Ketones (Stick) Neg mg/dL (NEG) Urine Blood Neg (NEG) Urine Nitrite Neg (NEG) Urine Bilirubin Neg (NEG) Urine Urobilinogen Dipstick 0.2 mg/dL (0.2 mg/dL) Urine Leukocyte Esterase Trace (NEG) Urine RBC 0 /HPF (0-2) Urine WBC 1-4 /HPF (0-4) Urine Squamous Epithelial Cells Few /LPF Urine Bacteria 0 /HPF (0-FEW) Urine Mucus Slight /LPF Urine Opiates Screen Neg (NEG) Urine Methadone Screen Neg (NEG) Urine Barbiturates Neg (NEG) Urine Phencyclidine Screen Neg (NEG) Urine Amphetamine/Methamphetamine Neg (NEG) Urine Benzodiazepines Screen Neg (NEG) Urine Cocaine Screen Neg (NEG) Urine Cannabinoids Screen Neg (NEG) Urine Ethyl Alcohol Neg (NEG) EKG EKG My interpretation EKG shows a sinus rhythm at 90 bpm. No findings acute STEMI with contralateral changes[] Radiology/Procedures Radiology/Procedures My interpretation chest x-ray shows no acute interval changes but has markedly findings of COPD/emphysema and chronic changes.[] Review old films in comparison to recent chest x-ray Course & Med Decision Making Course & Med Decision Making Pertinent Labs and Imaging studies reviewed. (See chart for details) Patient presentation, testing and treatment plan discussed with . Will admit for further evaluation and treatment. Consistent with an outpatient treatment failure on oral steroids and antibiotics. Encouraged patient to keep follow-up with pulmonary and possible PFTs. [] Final Impression Final Impression 1. Weakness 2. COPD[]/ Emphysema Exacerbation- Failed Out Pt. treatment on oral steroid s and antibiotics 3. Diabetes-glucose 126 4. Suspect a component of pulmonary hypertension secondary to her chronic lung disease Dragon Disclaimer Dragon Disclaimer This electronic medical record was generated, in whole or in part, using a voice recognition dictation system. Discharge Summary Visit Information Final Diagnosis Problems Medical Problems: (1) COPD exacerbation Status: Acute Brief Hospital Course Allergies Allergies Coded Allergies Type Severity Reaction Last Updated Verified influenza virus vaccine ts [id number] (36 mos+) Allergy Unknown 05/19/16 Yes Vital Signs Vital Signs Date Time Temp Pulse Resp B/P (MAP) Pulse Ox O2 Delivery O2 Flow Rate FiO2 08/18/18 17:24 97.9 89 36 100 Room Air Lab Results Laboratory Tests Test 08/18/18 17:53 08/18/18 18:25 White Blood Count 9.6 x10^3/uL (4.0-11.0) Red Blood Count 4.29 x10^6/uL (3.50-5.40) Hemoglobin 13.5 g/dL (12.0-15.5) Hematocrit 40.0 % (36.0-47.0) Mean Corpuscular Volume 93 fL (79-100) Mean Corpuscular Hemoglobin 32 pg (25-35) Mean Corpuscular Hemoglobin Concent 34 g/dL (31-37) Red Cell Distribution Width 13.3 % (11.5-14.5) Platelet Count 232 x10^3/uL (140-400) Neutrophils (%) (Auto) 80 % (31-73) Lymphocytes (%) (Auto) 12 % (24-48) Monocytes (%) (Auto) 7 % (0-9) Eosinophils (%) (Auto) 0 % (0-3) Basophils (%) (Auto) 0 % (0-3) Neutrophils # (Auto) 7.7 x10^3uL (1.8-7.7) Lymphocytes # (Auto) 1.2 x10^3/uL (1.0-4.8) Monocytes # (Auto) 0.7 x10^3/uL (0.0-1.1) Eosinophils # (Auto) 0.0 x10^3/uL (0.0-0.7) Basophils # (Auto) 0.0 x10^3/uL (0.0-0.2) Erythrocyte Sedimentation Rate 2 (0-25) D-Dimer (Blanka) < 0.19 mg/L (0.00-0.50) Sodium Level 140 mmol/L (136-145) Potassium Level 4.2 mmol/L (3.5-5.1) Chloride Level 99 mmol/L (98-107) Carbon Dioxide Level 28 mmol/L (21-32) Anion Gap 13 (6-14) Blood Urea Nitrogen 12 mg/dL (7-20) Creatinine 0.8 mg/dL (0.6-1.0) Estimated GFR (Cockcroft-Gault) 70.3 Glucose Level 126 mg/dL (70-99) Calcium Level 9.8 mg/dL (8.5-10.1) Magnesium Level 2.2 mg/dL (1.8-2.4) Total Bilirubin 0.5 mg/dL (0.2-1.0) Direct Bilirubin 0.2 mg/dL (0.0-0.2) Aspartate Amino Transf (AST/SGOT) 24 U/L (15-37) Alanine Aminotransferase (ALT/SGPT) 31 U/L (14-59) Alkaline Phosphatase 99 U/L (46-116) Creatine Kinase 125 U/L (26-192) Troponin I Quantitative < 0.017 ng/mL (0-0.055) SX-Jzq-K-Type Natriuretic Peptide 329 pg/mL (0-124) Total Protein 7.1 g/dL (6.4-8.2) Albumin 4.6 g/dL (3.4-5.0) Urine Collection Type Unknown Urine Color Yellow Urine Clarity Clear Urine pH 7.0 Urine Specific [place] 1.010 Urine Protein Neg (NEG-TRACE) Urine Glucose (UA) Neg mg/dL (NEG) Urine Ketones (Stick) Neg mg/dL (NEG) Urine Blood Neg (NEG) Urine Nitrite Neg (NEG) Urine Bilirubin Neg (NEG) Urine Urobilinogen Dipstick 0.2 mg/dL (0.2 mg/dL) Urine Leukocyte Esterase Trace (NEG) Urine RBC 0 /HPF (0-2) Urine WBC 1-4 /HPF (0-4) Urine Squamous Epithelial Cells Few /LPF Urine Bacteria 0 /HPF (0-FEW) Urine Mucus Slight /LPF Urine Opiates Screen Neg (NEG) Urine Methadone Screen Neg (NEG) Urine Barbiturates Neg (NEG) Urine Phencyclidine Screen Neg (NEG) Urine Amphetamine/Methamphetamine Neg (NEG) Urine Benzodiazepines Screen Neg (NEG) Urine Cocaine Screen Neg (NEG) Urine Cannabinoids Screen Neg (NEG) Urine Ethyl Alcohol Neg (NEG) Brief Hospital Course Ms. Montez is a 73 old female who presented with marked increased dyspnea and weakness. Admitted for further eval. tx. and exacerbation of COPD/emphysema to Dr Escobedo. Discharge Information Condition at Discharge: Improved Dischare Medications Current Medications Lactated Ringer's 1,000 ml @ 100 mls/hr Q10H IV Last administered on 08/18/18at 18:16; Admin Dose 100 MLS/HR; Start 08/18/18 at 17:45; Stop 08/19/18 at 03:44; Status DC Ondansetron HCl (Zofran) 4 mg PRN Q4HRS PRN IV NAUSEA/VOMITING; Start 08/18/18 at 21:30; Stop 08/19/18 at 21:29 Active Scripts Active Zithromax (Azithromycin) 250 Mg Tablet 1 Pkg PO UD Medrol (Methylprednisolone) 4 Mg Tab.ds.pk 1 Pkg PO UD Naprosyn (Naproxen) 500 Mg Tablet 500 Mg PO BID Cyclobenzaprine Hcl 10 Mg Tablet 1 Tab PO TID Zithromax (Azithromycin) 250 Mg Tablet 1 Pkg PO UD Prednisone 50 Mg Tablet 1 Tab PO DAILY Ipratropium [place] 0.2 Mg/1 Ml Solution 1 Vial NEB Q6HRS Naproxen 500 Mg Tablet.dr 1 Tab PO BID Medrol (Methylprednisolone) 4 Mg Tab.ds.pk 1 Pkg PO UD Cyclobenzaprine Hcl 5 Mg Tablet 1 Tab PO TID Prednisone 20 Mg Tablet 20 Mg PO BID 5 Days Duoneb 0.5-3(2.5) Mg/3 Ml (Albuterol/Ipratropium) 3 Ml Ampul.neb 3 Ml NEB QID Zithromax (Azithromycin) 250 Mg Tablet 1 Pkg PO UD Cefpodoxime Proxetil 200 Mg Tablet 1 Tab PO BID Reported Colace (Docusate Sodium) 100 Mg Capsule 200 Mg PO DAILY PRN Magnesium (Magnesium Oxide) 400 Mg Capsule 500 Mg PO DAILY Ventolin Hfa Inhaler (Albuterol Sulfate) 18 Gm Hfa.aer.ad 1 Puff IH TID PRN Stiolto Respimat Inhal [place] (Tiotropium Br/Olodaterol HCl) 4 Gm Mist.inhal 4 Gm IH DAILY Dragon Disclaimer This chart was dictated in whole or in part using Voice Recognition software in a busy, high-work load, and often noisy Emergency Department environment. It may contain unintended and wholly unrecognized errors or omissions. JOSE ARMANDO KIM MD Aug 18, 2018 17:27
[2018-08-18] MEDS ORDERED: IV RINGERS SOLUTION,LACTATED 1,000 ML IV SCH (17:45)
--- NOTE | 2018-08-18 18:08 | RAD ---
EXAM: CHEST 2 VIEWS. HISTORY: Weakness and shaking. COMPARISON: 08/11/2018, 08/15/2018. FINDINGS: Frontal and lateral views of the chest are obtained. Hyperinflation indicates advanced chronic obstructive pulmonary disease. There are no confluent infiltrates. There is no pneumothorax or pleural effusion. The heart is not enlarged. There are atherosclerotic calcifications of the aorta. IMPRESSION: 1. Advanced chronic obstructive pulmonary disease. No confluent infiltrates. Electronically signed by: Stefany Mccormick MD (08/18/2018 6:05 PM) [facility] [place]
[2018-08-18 18:19] LABS: BASO % 0 % (0-3); EOS % 0 % (0-3); HEMOGLOBIN 13.5 g/dL (12.0-15.5); LYMPH # 1.2 x10^3/uL (1.0-4.8); LYMPH % 12 % (24-48); MEAN CORPUSCULAR HEMOGLOBIN 32 pg (25-35); MEAN CORPUSCULAR HGB CONC 34 g/dL (31-37); MEAN CORPUSCULAR VOLUME 93 fL (79-100); MONO # 0.7 x10^3/uL (0.0-1.1); MONO % 7 % (0-9); NEUT # 7.7 x10^3uL (1.8-7.7); NEUT % 80 % (31-73); PLATELET COUNT 232 x10^3/uL (140-400); RED BLOOD COUNT 4.29 x10^6/uL (3.50-5.40); RED CELL DISTRIBUTION WIDTH 13.3 % (11.5-14.5); WHITE BLOOD COUNT 9.6 x10^3/uL (4.0-11.0)
[2018-08-18 18:55] LABS: ALBUMIN 4.6 g/dL (3.4-5.0); CALCIUM 9.8 mg/dL (8.5-10.1); CREATININE 0.8 mg/dL (0.6-1.0); DIRECT BILIRUBIN 0.2 mg/dL (0.0-0.2); GFR 70.3; MAGNESIUM 2.2 mg/dL (1.8-2.4); POTASSIUM 4.2 mmol/L (3.5-5.1); TOTAL BILIRUBIN 0.5 mg/dL (0.2-1.0); TOTAL PROTEIN 7.1 g/dL (6.4-8.2)
[2018-08-18 18:56] LABS: AMPHETAMINE/METHAMPHETAMINE NEG (NEG); BARBITURATES NEG (NEG); BENZODIAZEPINES NEG (NEG); CANNABINOIDS NEG (NEG); COCAINE NEG (NEG); METHADONE NEG (NEG); OPIATES NEG (NEG); PHENCYCLIDINE NEG (NEG)
[2018-08-18 19:01] LABS: BILIRUBIN,URINE NEG (NEG); CLARITY,URINE CLEAR; COLOR,URINE YELLOW; GLUCOSE,URINE NEG (NEG); NITRITE,URINE NEG (NEG); UROBILINOGEN,URINE 0.2 mg/dL (0.2 mg/dL)
[2018-08-18 19:02] LABS: BACTERIA,URINE 0 /HPF (0-FEW); RBC,URINE 0 /HPF (0-2); SQUAMOUS EPITHELIAL CELL,UR FEW /LPF
[2018-08-18 21:08] LABS: SEDIMENTATION RATE 2 (0-25)
[2018-08-18] MEDS ORDERED: ONDANSETRON PF 4 MG/2 ML VIAL. IV PRN (21:30)
[2018-08-18] MEDS ORDERED: methylPREDNISolone SOD SUCC PF 125 MG/2 ML VIAL. ONE (23:01)
[2018-08-18] MEDS ORDERED: cefTRIAXone SODIUM 1 GM VIAL ONE (23:02)
[2018-08-18 23:26] LABS: INFLUENZA A PATIENT NEGATIVE (NEGATIVE); INFLUENZA B PATIENT NEGATIVE (NEGATIVE)
[2018-08-18 23:45] VITALS: BP 113/65
[2018-08-19 05:01] VITALS: BP 112/68
[2018-08-19] MEDS: IPRATRPIUM/ALBUTEROL 0.5/2.5MG 3 ML NEBU. NEB SCH ×4 (05:01→20:51)
[2018-08-19 06:53] LABS: BASO % 0 % (0-3); EOS % 0 % (0-3); HEMATOCRIT 39.7 % (36.0-47.0); HEMOGLOBIN 13.4 g/dL (12.0-15.5); LYMPH # 0.5 x10^3/uL (1.0-4.8); LYMPH % 12 % (24-48); MEAN CORPUSCULAR HEMOGLOBIN 32 pg (25-35); MEAN CORPUSCULAR HGB CONC 34 g/dL (31-37); MEAN CORPUSCULAR VOLUME 94 fL (79-100); MONO % 1 % (0-9); NEUT # 3.8 x10^3uL (1.8-7.7); NEUT % 87 % (31-73); PLATELET COUNT 200 x10^3/uL (140-400); RED BLOOD COUNT 4.24 x10^6/uL (3.50-5.40); RED CELL DISTRIBUTION WIDTH 13.3 % (11.5-14.5); WHITE BLOOD COUNT 4.3 x10^3/uL (4.0-11.0)
[2018-08-19 06:59] LABS: CALCIUM 8.8 mg/dL (8.5-10.1); CREATININE 0.8 mg/dL (0.6-1.0); GFR 70.3; POTASSIUM 4.2 mmol/L (3.5-5.1)
[2018-08-19 08:07] LABS: % LYMPHS 12 % (24-48); % METAS 1 % (0-0); % SEGS 87 % (35-66); PLT ESTIMATE ADEQUATE (ADEQUATE)
[2018-08-19] MEDS ORDERED: methylPREDNISolone SOD SUCC PF 125 MG/2 ML VIAL. IV SCH (09:00)
[2018-08-19] MEDS: LACTOBACILLUS RHAMNOSUS GG 1 CAPSULE. PO SCH ×2 (09:00→20:51)
[2018-08-19] MEDS: AZITHROMYCIN 250 MG TABLET. PO SCH (09:01)
[2018-08-19 11:08] VITALS: BP 109/70
[2018-08-19 15:57] VITALS: BP 122/73
--- NOTE | 2018-08-19 16:37 | HP ---
ADMIT DATE: 08/19/2018 HISTORY OF PRESENT ILLNESS: The patient is a 73-year-old female patient, who came to the Emergency Room and has been seen at her primary care physician and also at the Emergency Room at least twice with a complaint of shortness of breath. She also complained of flushing during which she became very tingly and fixed her face, upper extremities is like away with it eventually disappears and has been coming more frequently over the last week. Did complain of shortness of breath, but denied any wheezing. Denied any diarrhea, but did complain of what seems to be like borborygmi or abnormal movement of her bowel. Her blood pressure also seems to be a little higher than usual when she has these episodes according to her. PAST MEDICAL HISTORY: Significant for chronic obstructive pulmonary disease and osteoarthritis. PAST SURGICAL HISTORY: Significant for tonsillectomy, breast biopsy, tubal ligation, esophagogastroduodenoscopy and colonoscopy. ALLERGIES: She is allergic to FLU SHOT. MEDICATIONS: She is currently on following medications: She is on ipratropium bromide by nebulizer every 6 hours, Tiotropium, Stiolto Respimat inhaler 1 inhalation once a day, albuterol sulfate 1 puff 3 times a day. She is on methylprednisolone and Medrol Dosepak. FAMILY HISTORY: She has 4 brothers and 5 sisters. One brother of thyroid cancer at the age of 60. Her father at age of 93 and mother at age of 98. SOCIAL HISTORY: She is . She has one daughter and one son. She quit smoking about 3 months ago. She smoked at least about 10 cigarettes a day for almost 50 years. She does not drink alcohol. 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 She worked at [employer] for 10 years and also worked to [employer] and she is currently retired. REVIEW OF SYSTEMS: The patient denied that she has bilateral cataracts, but that required surgery, but has not done yet. Denied any glaucoma or macular degeneration. Denied any earache, tinnitus or sensorineural deafness. Denied any nosebleeds, stuffy nose or postnasal drip. Denied any sore throat, sore tongue, toothache, hoarseness of voice or difficulty swallowing. Denied any nausea, vomiting, diarrhea or constipation. Denied any hematemesis, melena or hematochezia. Denied any dysuria, frequency or hematuria. Denied any chest pain. Did complain of shortness of breath, but denied any orthopnea or paroxysmal nocturnal dyspnea. Denied any cough, phlegm or hemoptysis. Denied any chills, rigors or fever. PHYSICAL EXAMINATION: GENERAL: When I examined her, she was resting, slightly propped up in bed, in no apparent respiratory distress. She was pale, cachectic, but no jaundice or cyanosis. No lymphadenopathy, no thyromegaly. No jugular venous distension. No lower limb edema. VITAL SIGNS: Her heart rate was 92, blood pressure 109/70, temperature was 97.8, respiratory rate was 20, and oxygen saturation was 98%. HEAD, EYES, EARS, NOSE, AND THROAT: Showed normocephalic, atraumatic. NECK: Supple. HEART: Showed normal first and second heart sounds. No gallop, rub or murmur. CHEST: Showed central trachea, equally reduced expansion, reduced air entry, vesicular breath sounds. I could not really appreciate any crepitation or rhonchi. ABDOMEN: Scaphoid, soft, nontender. No guarding or rigidity. No organomegaly. All hernial orifice intact. Bowel sounds normal. NEUROLOGIC: She is awake, alert, responding appropriately. All cranial nerves intact. EXTREMITIES: She moves extremities without difficulty. She ambulates without assistance or assistive devices. LABORATORY DATA: On arrival showed a white cell count 9600, hemoglobin was 13.5, hematocrit 40, MCV 93, and platelet count of 232,000 with normal manual differential. D-dimer was less than 0.19. Her chemistry showed a serum sodium 140, potassium 4.2, chloride 99, bicarbonate 28, anion gap of 13, BUN 12, creatinine 0.8, estimated GFR was 70 mL per minute. Her glucose was 126, calcium was 9.8, magnesium 2.2. Total bilirubin, AST, ALT, alkaline phosphatase were normal. Her total protein was 7.1, albumin was 4.6. Her TSH was 1.267. She has 2 sets of cardiac enzymes that ruled out myocardial infarction. Her urinalysis showed the urine was yellow, clear with a pH of 7, specific gravity of 1.010. The urine was negative for protein, glucose, ketones, blood, nitrite, bilirubin, and trace of leukocyte esterase, no rbc's, 1-4 wbc's, and no bacteria. Her toxicology screen was negative. Her influenza A and B were negative. Her chest x-ray showed hyperinflation of the case and advanced chronic obstructive pulmonary disease. There is no confluent infiltrate. There is no pneumothorax or pleural effusion. The heart is not enlarged. There are atherosclerotic calcifications in the aorta. ASSESSMENT AND PLAN: The patient was admitted with COPD. She has description what seems to be flushing consistent with either carcinoid syndrome or pheochromocytoma. My plan is to do a 24-hour urine collection for 5-hydroxyindoleacetic acid, VMA, metanephrine normetanephrine and once we have the collection, I explained to the patient the possibility she has a nodule in her CT scan as apparently she has CT angio, which showed that there is no evidence of acute pulmonary embolism, bilateral emphysematous changes. She has 6 mm right lower lobe lung nodules seen whether this is significant or not I am not really sure. I explained to the patient and his daughter that probably the result will take sometime and that once we have the lab results, we can proceed from that if all of them came back positive. PEPE DUBOIS MD DR: ANGIE/kinjal JOB#: [id number] / [id number]
[2018-08-19 19:18] VITALS: BP 115/65
--- NOTE | 2018-08-19 21:27 | EKG ---
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
[2018-08-19 22:49] VITALS: BP 102/58
--- NOTE | 2018-08-19 23:53 | PN ---
DATE: 08/19/2018 SUBJECTIVE: The patient is resting slightly propped up in bed, in no apparent distress. She continued to have episodes of flushing associated with some tingling and numbness in her hands, shortness of breath. She has also had headache. She denied any cough, phlegm, or hemoptysis. Did complain of shortness of breath, but denied any orthopnea or paroxysmal nocturnal dyspnea. PHYSICAL EXAMINATION: GENERAL: When I examined her, she was resting slightly propped up in bed, no apparent distress. She was pale, cachectic, but no jaundice, cyanosis, or thyromegaly. No jugular venous distension. No limb edema. VITAL SIGNS: Her heart rate was 92, blood pressure was 109/70, temperature was 97.8, respiratory rate 20, and oxygen saturation was 98%. HEAD, EYES, EARS, NOSE, AND THROAT: Normocephalic, atraumatic. NECK: Supple. HEART: Showed normal first and second heart sounds. No gallop, rub, or murmur. CHEST: Clear to auscultation. No crepitation or rhonchi. ABDOMEN: Distended, soft, nontender. No guarding or rigidity. No organomegaly. Hernial orifice intact. Bowel sounds normal. NEUROLOGIC: She was awake, alert, responding appropriately. All cranial nerves are intact. She moves extremities without difficulty. She ambulates without assistance or assistive devices. Her intake and output are incompletely recorded. LABORATORY DATA: This morning showed her white cell count was 4300, hemoglobin 13, hematocrit 39, MCV 94, and platelet count of 200,000. Her chemistry showed a serum sodium 143, potassium 4.2, chloride 105, bicarbonate 26, anion gap of 12, BUN 12, creatinine 0.8, estimated GFR was 70 mL per minute. Her glucose 124, calcium was 8.8. ASSESSMENT AND PLAN: This is a 73-year-old female patient with longstanding history of smoking, who came in with new onset of flushing associated with shortness of breath and shaking. She stated that her blood pressure gets higher during this episode. She has also what she describes like an abnormal movement of her bowel. I explained to her that I do not have really an exact diagnosis, but I have 2 differential diagnosis including either carcinoid syndrome, which can cause flushing and diarrhea; borborygmi and/or pheochromocytoma, this can cause similar symptoms. Both can be diagnosed with 24-hour urine collection for 5-hydroxyindoleacetic acid and/or 24-hour urine for normetanephrine, metanephrines, and VMA. We will start the collection tonight. Once we have completed the collection, the patient can be discharged home. Once we have the lab results, we can contact her and refer her appropriately if any one of these turned out to be positive. PEPE DUBOIS MD DR: ANGIE/kinjal JOB#: [id number] / [id number]
[2018-08-20 05:15] VITALS: BP 109/65
[2018-08-20] MEDS: IPRATRPIUM/ALBUTEROL 0.5/2.5MG 3 ML NEBU. NEB SCH ×4 (07:37→20:01)
[2018-08-20] MEDS ORDERED: methylPREDNISolone SOD SUCC PF 40 MG/ML VIAL. IV SCH (09:00)
[2018-08-20] MEDS: AZITHROMYCIN 250 MG TABLET. PO SCH (09:27)
[2018-08-20] MEDS: LACTOBACILLUS RHAMNOSUS GG 1 CAPSULE. PO SCH ×2 (09:27→20:32)
[2018-08-20 10:19] VITALS: BP 96/59
[2018-08-20 15:19] VITALS: BP 99/65
--- NOTE | 2018-08-20 19:01 | PN ---
DATE: 08/20/2018 SUBJECTIVE: The patient is sitting at the edge of bed comfortably in no apparent distress. She has had no flushing episode overnight. Continued to have headache, comes and goes, but denied any other complaint. PHYSICAL EXAMINATION: GENERAL: When I examined her, she looked pale, somewhat cachectic, but no jaundice, cyanosis, or thyromegaly. No jugular venous distension. No limb edema. VITAL SIGNS: Her heart rate was 71, blood pressure was 109/65, temperature was 98.2, respiratory rate was 18 and oxygen saturation was 98%. HEAD, EYES, EARS, NOSE AND THROAT: Showed normocephalic, atraumatic. NECK: Supple. HEART: Showed normal first and second heart sounds. No gallop, rub or murmur. CHEST: Clear to auscultation. No crepitation or rhonchi. ABDOMEN: Distended, soft, nontender. NEUROLOGIC: She was awake, alert, responding appropriately. All her other cranial nerves intact. She moves her extremities without difficulty. She ambulates without assistance or assistive devices. Her intake over the last 24 hours and output were incompletely recorded. Blood sugar seems to be stable. LABORATORY DATA: Her lab work also are stable. PLAN: Given that the patient has this episodic flushing, we did start 24-hour urine collection for 5-hydroxyindoleacetic acid as well as VMA and normetanephrine. I explained to the patient that the results of these might takes time, so we can probably discharge her home and once we have the lab results, we will discuss the finding and if they are positive, refer her to the appropriate subspecialists. PEPE DUBOIS MD DR: ANGIE/kinjal JOB#: [id number] / [id number]
[2018-08-20 19:56] VITALS: BP 111/64
[2018-08-20 22:51] VITALS: BP 98/63
[2018-08-21] MEDS: IPRATRPIUM/ALBUTEROL 0.5/2.5MG 3 ML NEBU. NEB SCH ×2 (05:04→11:36)
[2018-08-21 05:37] VITALS: BP 96/61
[2018-08-21] MEDS: LACTOBACILLUS RHAMNOSUS GG 1 CAPSULE. PO SCH (08:44)
[2018-08-21] MEDS: AZITHROMYCIN 250 MG TABLET. PO SCH (08:44)
[2018-08-21] MEDS ORDERED: predniSONE 10 MG TABLET PO SCH (09:00)
--- NOTE | 2018-08-21 09:52 | RAD ---
CT HEAD AND MAXILLOFACIAL WO dated 08/21/2018 9:13 AM Indication: Recurrent headaches, painheadache for 1 week. Comparison: No comparison is available. Technique: Contiguous axial imaging the head was performed without the administration of intravenous contrast. In addition, axial imaging the maxillofacial bones obtained with thin cut coronal and sagittal reconstruction. One or more of the following individualized dose reduction techniques were utilized for this examination: 1. Automated exposure control 2. Adjustment of the mA and/or kV according to patient size 3. Use of iterative reconstruction technique Findings: Ventricles and sulci are mildly prominent for age. No midline shift or mass effect. Mild patchy low density in the deep/subcortical periventricular white matter. No hemorrhage or extra axial collection. Posterior fossa and brainstem unremarkable. Paranasal sinuses are clear. No significant mucosal thickening or air-fluid level. Ostiomeatal units and infundibula are patent. No destructive changes or periostitis. There is minimal nasal septal deviation to the left. Mastoid air cells and middle ears are clear. No significant soft tissue abnormality. IMPRESSION HEAD: No evidence of acute intracranial abnormality. IMPRESSION MAXILLOFACIAL: No significant sinus disease. Electronically signed by: Ravin Cosme MD (08/21/2018 9:49 AM) [id number]
[2018-08-21 10:52] VITALS: BP 99/62
--- NOTE | 2018-08-21 12:54 | DS ---
DATE OF DISCHARGE: 08/21/2018 HISTORY OF PRESENT ILLNESS: The patient is a 73-year-old female patient who came to the Emergency Room complaining of shortness of breath. She also complained of flushing episode that affects her face and upper extremities. This episode has been coming more frequently over the last week. Denied any chest tightness or wheezing. Denied any diarrhea, but did complain of what seemed to be borborygmi or abnormal movement in her bowel. Her blood pressure was seen to be a little higher during these episodes. The patient was clinically stable. She has not had any shortness of breath, but she has a few of these episodic flushing. I witnessed only one of them and I explained to her that two possible explanation is that one is she has a disease called carcinoid syndrome and/or pheochromocytoma and both can be diagnosed with a 24-hour urine collection. We did actually complete the collection yesterday and the urine was sent to the lab, the results of which is still pending at the time of this dictation and as the patient remained stable, a decision was made to discharge her home. She also complained of headache that comes and goes. We did a CT scan of the head and maxillofacial area without contrast and both were negative and showed no abnormalities. PHYSICAL EXAMINATION: GENERAL: When I saw her this morning, she looked well and was clearly in no apparent respiratory distress, pale, somewhat cachectic, but no jaundice, cyanosis, or thyromegaly. No jugular venous distention. No lower limb edema. VITAL SIGNS: Her heart rate was 78, blood pressure was 99/62, temperature was 98, respiratory rate 20, and oxygen saturation was 96%. HEAD, EYES, EARS, NOSE AND THROAT: Normocephalic, atraumatic. NECK: Supple. HEART: Showed normal first and second heart sounds with no gallop, rub or murmur. CHEST: Clear to auscultation. No crepitation or rhonchi. ABDOMEN: Distended, soft, nontender. No guarding or rigidity. No organomegaly. All hernial orifices intact. Bowel sounds normal. NEUROLOGIC: She is awake, alert, responding appropriately. All cranial nerves are intact. She moves extremities without difficulty. She ambulates without assistance or assistive devices. LABORATORY DATA: Her lab work showed her white cell count was 4300, hemoglobin 13, hematocrit 39, MCV 94 and platelet count of 200,000. Her chemistry showed her serum sodium 143, potassium 4.2, chloride 105, bicarbonate 26, anion gap of 12, BUN 12, creatinine 0.8, estimated GFR was 71 mL per minute. Her glucose was 124 and calcium was 8.8. Her TSH was normal at 1.67. DISCHARGE MEDICATIONS: She was discharged home to continue on albuterol sulfate 1 puff 3 times a day, ipratropium bromide via nebulizer every 6 hours. She is on a tapering course of Medrol Dosepak and she is Stiolto Respimat 1 inhalation once a day. FINAL DISCHARGE DIAGNOSES: Episodic flushing the cause of which is not clear. We did 24-hour urine collection for 5-hydroxyendoleactic acid as well as VMA and normetanephrine, chronic obstructive pulmonary disease, generalized osteoarthritis. PEPE DUBOIS MD DR: ANGIE/kinjal JOB#: [id number] / [id number]
--- NOTE | 2018-08-21 13:13 | PN ---
DATE: 08/21/2018 SUBJECTIVE: The patient was resting slightly propped up in bed, in no apparent respiratory distress, sleeping comfortably. She is arousable; on questioning her, she did have another episodic flushing yesterday and continued to have headache on and off. OBJECTIVE: GENERAL: When I examined her this morning, she looked well and was clearly in no apparent respiratory distress. No pallor, jaundice, cyanosis, or thyromegaly. No jugular venous distension. No lower limb edema. VITAL SIGNS: Her heart rate was 80, blood pressure was 96/61, temperature was 97.9, respiratory rate was 20, and oxygen saturation was 100% on room air. HEAD, EYES, EARS, NOSE AND THROAT: Showed normocephalic, atraumatic. NECK: Supple. HEART: Showed normal first and second heart sounds. No gallop, rub or murmur. CHEST: Clear to auscultation. No crepitation or rhonchi. ABDOMEN: Distended, soft, nontender. No guarding or rigidity. No organomegaly. All hernial orifice intact. Bowel sounds normal. NEUROLOGIC: She is sleepy, but arousable. All cranial nerves intact. She moves extremities without difficulty. She ambulates without assistance or assistive devices. Her intake over the last 24 hours was 1660, output was 950. LABORATORY DATA: Her blood sugar has been consistently within normal limit. Her serum sodium was 143, potassium 4.2, chloride 105, bicarbonate 26, anion gap of 12, BUN 12, creatinine 0.8, estimated GFR was 70 mL per minute, her glucose 124, calcium was 8.8. TSH was normal at 1.267. Most recent white cell count was 4300, hemoglobin 13, hematocrit 39, MCV 94 and platelet count 200,000. D-dimer was normal at 0.19. Her influenza A and B were negative. Urinalysis was unremarkable. Toxic screen was essentially negative. Her chest x-ray was unremarkable, showed advanced chronic obstructive pulmonary disease. No confluent infiltrate. ASSESSMENT: 1. Episodic flushing and headache. We did a 24-hour urine collection for 5-hydroxyindoleacetic acid as well as VMA and normetanephrine. 2. Chronic obstructive pulmonary disease. 3. Generalized osteoarthritis. 4. Severe headache, relapsing and remitting for which I did order a CT scan of the head and maxillofacial CT scan without contrast. PEPE DUBOIS MD DR: ANGIE/kinjal JOB#: [id number] / [id number]
[2018-08-21 14:44] VITALS: BP 110/67
[2018-08-24 15:07] LABS: VMA UR 1.1 mg/L (Undefined)
== END 2018-08-21 14:51 | disposition home or self-care (01) | DRG 191 ==
LOC: ER 17:24 → 1 SOUTH 22:37
PROVIDERS: ADMIT Internal Medicine; ATTEND Internal Medicine
DX: J44.1 Chronic obstructive pulmonary disease with (acute) exacerbation (principal); E34.0 Carcinoid syndrome; D35.00 Benign neoplasm of unspecified adrenal gland; F17.210 Nicotine dependence, cigarettes, uncomplicated; M15.9 Polyosteoarthritis, unspecified; Z80.8 Family history of malignant neoplasm of other organs or systems; Z98.51 Tubal ligation status; Z88.8 Allergy status to other drugs, medicaments and biological substances; Z79.899 Other long term (current) drug therapy
CPT/HCPCS: 36415; 70450; 70486; 71046; 71275; 80048; 80053; 80076; 80307; 81001; 82550; 82947; 83497; 83605; 83735; 83835; 83880; 84443; 84484; 84585; 85007; 85025; 85379; 85651; 87040; 87086; 87804; 93005; 94640; 96361; 96365; 96375; J0456; J0696; J2920; J2930; J7120; J7512; J7620; Q9967; 99285-25

== ENCOUNTER → 2018-09-17 | Outpatient (CLI) | payer MEDICARE ==
[2018-08-21 14:44] VITALS: BP 110/67
[~2018-09-17] MED LIST changes: +ALBU2.5V14 NEB
--- NOTE | 2018-09-17 15:28 | RAD ---
US PELVIS W/TV History: Pelvic pain and bloating Comparison: March 14, 2012 Findings: Multiple transabdominal sonographic images of pelvis are submitted. Pelvic structures are poorly visualized. Transvaginal ultrasound: Multiple transvaginal sonographic images of pelvis are submitted. Uterus measured 4.6 x 3.1 x 3.8 cm. Endometrium measured about 0.5 cm. Neither ovary could be visualized, fluid filled bowel seen in the parametrial regions bilaterally. There is no significant free fluid. Impression: 1. Neither ovary could be visualized, fluid filled bowel in the parametrial regions of the pelvis bilateral. There is no significant free fluid. 2. Endometrial thickness is considered borderline in postmenopausal patient. Electronically signed by: Torres Cai MD (09/17/2018 3:25 PM) [place] [id number]
== END | disposition home or self-care (01) ==
LOC: US 09:29
PROVIDERS: ATTEND Obstetrics & Gynecology
DX: R93.89 Abnormal findings on diagnostic imaging of other specified body structures (principal)
CPT/HCPCS: 76830; 76856

== ENCOUNTER 2018-10-04 16:37 | Inpatient (IN) | payer MEDICARE ==
[~2018-10-04] VITALS: Ht 162.6 cm; Wt 48.3 kg
[~2018-10-04 16:37] MED LIST changes: -ALBU2.5V14 NEB
[2018-10-04] MEDS ORDERED: IPRATRPIUM/ALBUTEROL 0.5/2.5MG 3 ML NEBU. NEB ONE (16:45)
--- NOTE | 2018-10-04 16:53 | PHYS DOC ---
Past History Past Medical History: COPD Past Surgical History: Tonsillectomy, Tubal ligation Smoking: Quit Less Than 1 Year Alcohol Use: None Drug Use: None Adult General Chief Complaint Chief Complaint: SHORTNESS OF BREATH HPI HPI Patient is a 73-year-old female presents complaining of shortness of breath and lower chest discomfort. This started this morning. Has been getting worse over time. Similar episodes with COPD in the past. Symptoms are worse with exertion, better with rest. No improvement with her home nebulizer treatment with albuterol. No recent travel. No leg swelling. No worsening with supine position.[] Review of Systems Review of Systems Constitutional: Denies fever or chills [] Eyes: Denies change in visual acuity, redness, or eye pain [] HENT: Denies nasal congestion or sore throat [] Respiratory: See history of present illness[] Cardiovascular: No additional information not addressed in HPI [] GI: Denies abdominal pain, nausea, vomiting, bloody stools or diarrhea [] : Denies dysuria or hematuria [] Musculoskeletal: Denies back pain or joint pain [] Integument: Denies rash or skin lesions [] Neurologic: Denies headache, focal weakness or sensory changes [] Endocrine: Denies polyuria or polydipsia [] All other systems were reviewed and found to be within normal limits, except as documented in this note. Current Medications Current Medications Current Medications Medications (Trade) Dose Ordered Sig/Amanda Start Time Stop Time Status Last Admin Dose Admin Albuterol/ Ipratropium (Duoneb) 3 ml 1X ONCE 10/04/18 16:45 10/04/18 16:49 DC Allergies Allergies Allergies Coded Allergies Type Severity Reaction Last Updated Verified influenza virus vaccine ts [id number] (36 mos,up) Allergy Intermediate 10/04/18 Yes Physical Exam Physical Exam Constitutional: Well developed, well nourished, no acute distress, non-toxic appearance. [] HENT: Normocephalic, atraumatic, bilateral external ears normal, oropharynx moist, no oral exudates, nose normal. [] Eyes: PERRLA, EOMI, conjunctiva normal, no discharge. [] Neck: Normal range of motion, no tenderness, supple, no stridor. [] Cardiovascular:Heart rate regular rhythm, no murmur [] Lungs & Thorax: Bilateral breath sounds clear to auscultation [] Abdomen: Bowel sounds normal, soft, no tenderness, no masses, no pulsatile masses. [] Skin: Warm, dry, no erythema, no rash. [] Back: No tenderness, no CVA tenderness. [] Extremities: No tenderness, no cyanosis, no clubbing, ROM intact, no edema. [] Neurologic: Alert and oriented X 3, normal motor function, normal sensory function, no focal deficits noted. [] Psychologic: Affect normal, judgement normal, mood normal. [] Current Patient Data Vital Signs Vital Signs Date Time Temp Pulse Resp B/P (MAP) Pulse Ox O2 Delivery O2 Flow Rate FiO2 10/04/18 16:44 98.3 99 36 98 Room Air EKG EKG EKG shows a sinus tachycardia at 102 bpm, normal axis, QTC of 437 ms, no ST elevation. No acute changes when compared with 08/15/2018. Interpreted by me at 1700[] Radiology/Procedures Radiology/Procedures PROCEDURE: CHEST PA & LATERAL CHEST PA LATERAL Technique: PA and lateral views of the chest were obtained. Clinical History: CHEST DISCOMFORT/PRESSURE. SHORT OF AIR Comparison: August 18, 2018. Findings: The heart and pulmonary vasculature appear within normal limits. The lungs are clear. The pleural margins are clear. The lungs are hyperinflated. There is mild chronic pulmonary fibrosis. Impression: No acute chest process is seen. [] Course & Med Decision Making Course & Med Decision Making Pertinent Labs and Imaging studies reviewed. (See chart for details) ED course: Patient arrived, was placed in bed, and tolerated exam well. After the initial breathing treatment, there was increased breath sounds and wheezing was now present which was not heard on initial auscultation. Work of breathing decreased. Patient care was endorsed to the oncoming physician at 1800 with laboratory testing in progress, along with follow-up for the medical interventions provided in the emergency department.[] Dragon Disclaimer Dragon Disclaimer This electronic medical record was generated, in whole or in part, using a voice recognition dictation system. Departure Departure: Referrals: TOM ROPER MD (PCP) VANESSA CHILDRESS DO Oct 04, 2018 16:53
[2018-10-04 17:12] LABS: BASO # 0.1 x10^3/uL (0.0-0.2); BASO % 1 % (0-3); EOS # 0.1 x10^3/uL (0.0-0.7); EOS % 1 % (0-3); HEMATOCRIT 37.4 % (36.0-47.0); HEMOGLOBIN 12.8 g/dL (12.0-15.5); LYMPH # 1.9 x10^3/uL (1.0-4.8); LYMPH % 29 % (24-48); MEAN CORPUSCULAR HEMOGLOBIN 32 pg (25-35); MEAN CORPUSCULAR HGB CONC 34 g/dL (31-37); MEAN CORPUSCULAR VOLUME 92 fL (79-100); MONO # 0.6 x10^3/uL (0.0-1.1); MONO % 9 % (0-9); NEUT # 4.1 x10^3uL (1.8-7.7); NEUT % 61 % (31-73); PLATELET COUNT 187 x10^3/uL (140-400); RED BLOOD COUNT 4.06 x10^6/uL (3.50-5.40); RED CELL DISTRIBUTION WIDTH 13.5 % (11.5-14.5); WHITE BLOOD COUNT 6.8 x10^3/uL (4.0-11.0)
[2018-10-04 17:33] LABS: ALBUMIN 3.9 g/dL (3.4-5.0); ALBUMIN/GLOBULIN RATIO 1.6 (1.0-1.7); CALCIUM 9.2 mg/dL (8.5-10.1); CREATININE 0.9 mg/dL (0.6-1.0); GFR 61.4; MAGNESIUM 2.1 mg/dL (1.8-2.4); POTASSIUM 3.4 mmol/L (3.5-5.1); TOTAL BILIRUBIN 0.3 mg/dL (0.2-1.0); TOTAL PROTEIN 6.4 g/dL (6.4-8.2)
--- NOTE | 2018-10-04 17:39 | RAD ---
CHEST PA LATERAL Technique: PA and lateral views of the chest were obtained. Clinical History: CHEST DISCOMFORT/PRESSURE. SHORT OF AIR Comparison: August 18, 2018. Findings: The heart and pulmonary vasculature appear within normal limits. The lungs are clear. The pleural margins are clear. The lungs are hyperinflated. There is mild chronic pulmonary fibrosis. Impression: No acute chest process is seen. Electronically signed by: Valentino Dye III, MD (10/04/2018 5:36 PM) [facility]
[2018-10-04] MEDS ORDERED: ALBUTEROL SULFATE 2.5 MG/3 ML NEBU. NEB ONE (17:45)
[2018-10-04 17:52] LABS: BACTERIA,URINE 0 /HPF (0-FEW); BILIRUBIN,URINE NEG (NEG); CLARITY,URINE CLEAR; COLOR,URINE YELLOW; GLUCOSE,URINE NEG (NEG); NITRITE,URINE NEG (NEG); RBC,URINE 0 /HPF (0-2); SQUAMOUS EPITHELIAL CELL,UR FEW /LPF; UROBILINOGEN,URINE 0.2 mg/dL (0.2 mg/dL); WBC,URINE 0 /HPF (0-4)
--- NOTE | 2018-10-04 17:54 | EKG ---
[address] [address] Test Date: 2018-10-04 Test Time: 16:51:30 Pat Name: CEM ABARCA Department: Room: Gender: F [employer] Supervisor: IZZY : 1945 Requested By: VANESSA CHILDRESS Order Number: [id number] Reading MD: Jamarcus Mcclellan Measurements Intervals Nitro Rate: 102 P: 85 LA: 160 QRS: 79 QRSD: 78 T: 66 QT: 332 QTc: 437 Interpretive Statements SINUS TACHYCARDIA ATRIAL PREMATURE COMPLEX(ES) QRS(T) CONTOUR ABNORMALITY CONSISTENT WITH ANTEROSEPTAL INFARCT PROBABLY OLD ABNORMAL ECG RI6.01 Compared to ECG 08/18/2018 17:46:00 Myocardial infarct finding now present Sinus rhythm no longer present Possible ischemia no longer present Electronically Signed On 10-10-2018 11:57:08 CDT by Jamarcus Mcclellan
[2018-10-04] MEDS ORDERED: methylPREDNISolone SOD SUCC PF 125 MG/2 ML VIAL. IV ONE (18:00)
[2018-10-04] MEDS ORDERED: ONDANSETRON PF 4 MG/2 ML VIAL. IV PRN (19:15)
[2018-10-04] MEDS ORDERED: AZITHROMYCIN 250 MG TABLET. PO STA (19:27)
[2018-10-04] MEDS: ENOXAPARIN 40 MG/0.4 ML SYRINGE. SQ SCH (21:00)
[2018-10-04 21:21] VITALS: BP 110/69
[2018-10-04] MEDS: IPRATRPIUM/ALBUTEROL 0.5/2.5MG 3 ML NEBU. NEB SCH (21:26)
[2018-10-04] MEDS ORDERED: POTASSIUM CHLORIDE 20 MEQ TABLET.ER. PO ONE (21:30)
[2018-10-04] MEDS ORDERED: MAGN400C PO (22:17)
[2018-10-04] MEDS ORDERED: ALBU2.5V14 NEB (22:17)
[2018-10-04 23:34] VITALS: BP 100/62
[2018-10-05] MEDS: IPRATRPIUM/ALBUTEROL 0.5/2.5MG 3 ML NEBU. NEB SCH ×4 (05:09→20:56)
[2018-10-05 07:51] LABS: CALCIUM 9.2 mg/dL (8.5-10.1); CREATININE 0.8 mg/dL (0.6-1.0); GFR 70.3; POTASSIUM 4.5 mmol/L (3.5-5.1)
[2018-10-05 08:07] LABS: BASO % 0 % (0-3); EOS % 0 % (0-3); HEMATOCRIT 38.2 % (36.0-47.0); HEMOGLOBIN 13.1 g/dL (12.0-15.5); LYMPH # 0.5 x10^3/uL (1.0-4.8); LYMPH % 8 % (24-48); MEAN CORPUSCULAR HEMOGLOBIN 32 pg (25-35); MEAN CORPUSCULAR HGB CONC 34 g/dL (31-37); MEAN CORPUSCULAR VOLUME 93 fL (79-100); MONO # 0.1 x10^3/uL (0.0-1.1); MONO % 1 % (0-9); NEUT # 6.2 x10^3uL (1.8-7.7); NEUT % 91 % (31-73); PLATELET COUNT 191 x10^3/uL (140-400); RED BLOOD COUNT 4.12 x10^6/uL (3.50-5.40); RED CELL DISTRIBUTION WIDTH 13.4 % (11.5-14.5); WHITE BLOOD COUNT 6.8 x10^3/uL (4.0-11.0)
[2018-10-05] MEDS: methylPREDNISolone SOD SUCC PF 125 MG/2 ML VIAL. IV SCH (08:20)
[2018-10-05] MEDS: ASPIRIN 81 MG TAB.CHEW PO SCH (08:21)
[2018-10-05] MEDS: AZITHROMYCIN 250 MG TABLET. PO SCH (08:21)
[2018-10-05] MEDS: ENOXAPARIN 40 MG/0.4 ML SYRINGE. SQ SCH ×2 (08:24→20:47)
[2018-10-05] MEDS ORDERED: ALBUTEROL SULFATE 2.5 MG/3 ML NEBU. NEB PRN (08:30)
[2018-10-05 11:40] VITALS: BP 106/58
--- NOTE | 2018-10-05 14:54 | PDOC2 ---
CONSULT Date of Admission DATE: 10/05/18 TIME: 14:54 Reason for Consult: Chest pain Referring Physician: Dr. Escobedo Chief Complaint Shortness of breath Source: Chart review, Patient Problem List Problems Medical Problems: (1) COPD exacerbation Status: Acute History of Present Illness 73-year-old female without any previous cardiac history presented complaining of progressive shortness of breath and diagnosed with acute COPD exacerbation. She was complaining of intermittent episodes of retrosternal chest pressure not related to exertion or food intake and has we have been consulted. She denied any orthopnea/PND, palpitations or syncope. Past Medical History COPD Osteoarthritis Past Surgical History Tonsillectomy Breast biopsy Family History Cancer No history of premature coronary artery disease Social History Patient quit smoking 4 months ago and denied any alcohol or drug abuse Current Medications Current Medications Albuterol/ Ipratropium (Duoneb) 3 ml 1X ONCE NEB Last administered on 10/04/18at 16:30; Start 10/04/18 at 16:45; Stop 10/04/18 at 16:49; Status DC Albuterol Sulfate (Ventolin) 2.5 mg 1X ONCE NEB Last administered on 10/04/18at 17:40; Start 10/04/18 at 17:45; Stop 10/04/18 at 17:46; Status DC Methylprednisolone Sodium Succinate (SOLU-Medrol 125MG VIAL) 125 mg 1X ONCE IV Last administered on 10/04/18at 18:10; Start 10/04/18 at 18:00; Stop 10/04/18 at 18:01; Status DC Ondansetron HCl (Zofran) 4 mg PRN Q4HRS PRN IV NAUSEA/VOMITING; Start 10/04/18 at 19:15; Stop 10/05/18 at 19:14 Enoxaparin Sodium (Lovenox 40mg Syringe) 40 mg BID SQ ; Start 10/04/18 at 21:00 Methylprednisolone Sodium Succinate (SOLU-Medrol 125MG VIAL) 125 mg DAILY IV Last administered on 10/05/18at 08:20; Start 10/05/18 at 09:00 Aspirin (Children'S Aspirin) 81 mg DAILY PO Last administered on 10/05/18at 08: 21; Start 10/05/18 at 09:00 Azithromycin (Zithromax) 500 mg 1X STAT PO Last administered on 10/04/18at 19:28; Start 10/04/18 at 19:27; Stop 10/04/18 at 19:28; Status DC Azithromycin (Zithromax) 250 mg DAILY PO Last administered on 10/05/18at 08:21; Start 10/05/18 at 09:00 Albuterol/ Ipratropium (Duoneb) 3 ml RTQID NEB Last administered on 10/05/18at 09:32; Start 10/04/18 at 20:00 Potassium Chloride (Klor-Con) 40 meq 1X ONCE PO Last administered on 10/04/18at 22:08; Start 10/04/18 at 21:30; Stop 10/04/18 at 21:31; Status DC Albuterol Sulfate (Ventolin) 2.5 mg PRN Q6HRS PRN NEB SHORTNESS OF BREATH; Start 10/05/18 at 08:30 Lactobacillus Rhamnosus (Culturelle) 1 cap BID PO ; Start 10/05/18 at 21:00 Methylprednisolone Sodium Succinate (SOLU-Medrol 40MG VIAL) 40 mg Q8HRS IV ; Start 10/05/18 at 22:00 Active Scripts Active Reported Albuterol Sulfate Conc Neb Soln (Albuterol Sulfate) 2.5 Mg/0.5 Ml Vial.neb 1 Vial NEB Q6HRS Magnesium (Magnesium Oxide) 400 Mg Capsule 400 Mg PO DAILY Ventolin Hfa Inhaler (Albuterol Sulfate) 18 Gm Hfa.aer.ad 1 Puff IH PRN Q4HRS PRN Stiolto Respimat Inhal [place] (Tiotropium Br/Olodaterol HCl) 4 Gm Mist.inhal 2 Puff IH DAILY Allergies: Coded Allergies: influenza virus vaccine ts [id number] (36 mos,up) (Verified Allergy, Intermediate, 10/04/18) PSYCHOLOGICAL ROS: No: Hallucinations Eyes: No: Loss of vision ENDOCRINE: No: Palpitations Respiratory: YES: Shortness of breath; No: Hemoptysis Cardiovascular: yes: Chest Pain Gastrointestinal: No: Vomiting, Diarrhea Genitourinary: No: [place] Neurological: No: Seizures Skin: No: Rash General: Alert, Oriented X3 HEENT: Atraumatic Lungs: Other (scattered rhonchi) Heart: Regular rate Abdomen: Soft, No tenderness Extremities: No edema Neuro: Normal speech Psych/Mental Status: Mood NL VITALS Vital Signs Date Time Temp Pulse Resp B/P (MAP) Pulse Ox O2 Delivery O2 Flow Rate FiO2 10/05/18 11:40 97.6 100 106/58 (74) 99 Room Air 10/04/18 23:34 20 Labs Laboratory Tests Test 10/04/18 16:50 10/04/18 17:30 10/04/18 23:40 10/05/18 05:58 White Blood Count 6.8 x10^3/uL (4.0-11.0) 6.8 x10^3/uL (4.0-11.0) Red Blood Count 4.06 x10^6/uL (3.50-5.40) 4.12 x10^6/uL (3.50-5.40) Hemoglobin 12.8 g/dL (12.0-15.5) 13.1 g/dL (12.0-15.5) Hematocrit 37.4 % (36.0-47.0) 38.2 % (36.0-47.0) Mean Corpuscular Volume 92 fL (79-100) 93 fL (79-100) Mean Corpuscular Hemoglobin 32 pg (25-35) 32 pg (25-35) Mean Corpuscular Hemoglobin Concent 34 g/dL (31-37) 34 g/dL (31-37) Red Cell Distribution Width 13.5 % (11.5-14.5) 13.4 % (11.5-14.5) Platelet Count 187 x10^3/uL (140-400) 191 x10^3/uL (140-400) Neutrophils (%) (Auto) 61 % (31-73) 91 % (31-73) Lymphocytes (%) (Auto) 29 % (24-48) 8 % (24-48) Monocytes (%) (Auto) 9 % (0-9) 1 % (0-9) Eosinophils (%) (Auto) 1 % (0-3) 0 % (0-3) Basophils (%) (Auto) 1 % (0-3) 0 % (0-3) Neutrophils # (Auto) 4.1 x10^3uL (1.8-7.7) 6.2 x10^3uL (1.8-7.7) Lymphocytes # (Auto) 1.9 x10^3/uL (1.0-4.8) 0.5 x10^3/uL (1.0-4.8) Monocytes # (Auto) 0.6 x10^3/uL (0.0-1.1) 0.1 x10^3/uL (0.0-1.1) Eosinophils # (Auto) 0.1 x10^3/uL (0.0-0.7) 0.0 x10^3/uL (0.0-0.7) Basophils # (Auto) 0.1 x10^3/uL (0.0-0.2) 0.0 x10^3/uL (0.0-0.2) Prothrombin Time 10.2 SEC (9.4-11.4) Prothromb Time International Ratio 1.0 (0.9-1.1) D-Dimer (Blanka) 0.19 mg/L (0.00-0.50) Sodium Level 141 mmol/L (136-145) 143 mmol/L (136-145) Potassium Level 3.4 mmol/L (3.5-5.1) 4.5 mmol/L (3.5-5.1) Chloride Level 104 mmol/L (98-107) 107 mmol/L (98-107) Carbon Dioxide Level 26 mmol/L (21-32) 24 mmol/L (21-32) Anion Gap 11 (6-14) 12 (6-14) Blood Urea Nitrogen 13 mg/dL (7-20) 11 mg/dL (7-20) Creatinine 0.9 mg/dL (0.6-1.0) 0.8 mg/dL (0.6-1.0) Estimated GFR (Cockcroft-Gault) 61.4 70.3 BUN/Creatinine Ratio 14 (6-20) Glucose Level 105 mg/dL (70-99) 127 mg/dL (70-99) Calcium Level 9.2 mg/dL (8.5-10.1) 9.2 mg/dL (8.5-10.1) Magnesium Level 2.1 mg/dL (1.8-2.4) 2.2 mg/dL (1.8-2.4) Total Bilirubin 0.3 mg/dL (0.2-1.0) Aspartate Amino Transf (AST/SGOT) 27 U/L (15-37) Alanine Aminotransferase (ALT/SGPT) 29 U/L (14-59) Alkaline Phosphatase 101 U/L (46-116) Troponin I Quantitative < 0.017 ng/mL (0-0.055) < 0.017 ng/mL (0-0.055) < 0.017 ng/mL (0-0.055) RG-Bfn-[id number]-Type Natriuretic Peptide 177 pg/mL (0-124) Total Protein 6.4 g/dL (6.4-8.2) Albumin 3.9 g/dL (3.4-5.0) Albumin/Globulin Ratio 1.6 (1.0-1.7) Lipase 78 U/L (73-393) Urine Collection Type Unknown Urine Color Yellow Urine Clarity Clear Urine pH 7.0 Urine Specific [place] 1.010 Urine Protein Neg (NEG-TRACE) Urine Glucose (UA) Neg mg/dL (NEG) Urine Ketones (Stick) Neg mg/dL (NEG) Urine Blood Neg (NEG) Urine Nitrite Neg (NEG) Urine Bilirubin Neg (NEG) Urine Urobilinogen Dipstick 0.2 mg/dL (0.2 mg/dL) Urine Leukocyte Esterase Neg (NEG) Urine RBC 0 /HPF (0-2) Urine WBC 0 /HPF (0-4) Urine Squamous Epithelial Cells Few /LPF Urine Bacteria 0 /HPF (0-FEW) Assessment/Plan 1. Acute COPD exacerbation: Improved since admission. Continue current treatment per IM. 2. Chest pain with atypical features and most probably secondary to bronchospasm. Myocardial infarction has been ruled out. Plan for 2-D echo and Lexiscan nuclear stress test for further evaluation as an outpatient. Thank you for your consultation. EVANGELINA MOBLEY MD Oct 05, 2018 14:54
[2018-10-05 15:44] VITALS: BP 110/68
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
[2018-10-05 19:30] VITALS: BP 107/67
--- NOTE | 2018-10-05 20:43 | PN ---
DATE: 10/05/2018 SUBJECTIVE: The patient is sitting slightly propped up in bed, feeling somewhat better; however, continued to have marked shortness of breath on exertion. PHYSICAL EXAMINATION: GENERAL: When I examined her this afternoon, she looked pale, cachectic, but no jaundice, cyanosis, or thyromegaly. No jugular venous distension. No limb edema. VITAL SIGNS: Her heart rate was 100, blood pressure was 106/58, temperature was 97.6, respiratory rate was 20, and oxygen saturation was 99%. HEAD, EYES, EARS, NOSE AND THROAT: Showed normocephalic, atraumatic. NECK: Supple. HEART: Showed normal first and second heart sounds with no gallop, rub or murmur. CHEST: Shows central trachea, equally reduced expansion, reduced air entry, vesicular sounds with very few scattered rhonchi. No crepitation. ABDOMEN: Scaphoid, soft, nontender. NEUROLOGIC: She was awake, alert, responding appropriately. All cranial nerves intact. She moves extremities without difficulty. She ambulates without assistance or assistive devices. LABORATORY DATA: Her lab work this morning showed that her serum sodium was 143, potassium 4.5, chloride 107, bicarbonate 24, anion gap of 12, BUN 11, creatinine 0.8, estimated GFR was 70, glucose was 127, calcium was 9.2, magnesium was 2.2. She has 3 sets of cardiac enzyme, all of them less than 0.017. Her white cell count was 6800, hemoglobin 13, hematocrit 38, MCV 93, and platelet count of 191,000. ASSESSMENT: Chronic obstructive pulmonary disease exacerbation. PLAN: To continue with steroids, continue with the nebulizer albuterol and Atrovent and azithromycin. We will evaluate her again tomorrow. If she remains stable, she can be discharged on a tapering course of steroids. PEPE DUBOIS MD DR: ANGIE/kinjal JOB#: [id number] / [id number]
[2018-10-05] MEDS: LACTOBACILLUS RHAMNOSUS GG 1 CAPSULE. PO SCH (20:46)
[2018-10-05] MEDS: methylPREDNISolone SOD SUCC PF 40 MG/ML VIAL. IV SCH (21:57)
[2018-10-05 23:18] VITALS: BP 90/48
[2018-10-06] MEDS: IPRATRPIUM/ALBUTEROL 0.5/2.5MG 3 ML NEBU. NEB SCH ×3 (04:59→15:29)
[2018-10-06] MEDS: methylPREDNISolone SOD SUCC PF 40 MG/ML VIAL. IV SCH ×2 (06:04→14:00)
[2018-10-06 06:12] VITALS: BP 102/57
[2018-10-06] MEDS: LACTOBACILLUS RHAMNOSUS GG 1 CAPSULE. PO SCH (08:28)
[2018-10-06] MEDS: ENOXAPARIN 40 MG/0.4 ML SYRINGE. SQ SCH (08:28)
[2018-10-06] MEDS: AZITHROMYCIN 250 MG TABLET. PO SCH (08:28)
[2018-10-06] MEDS: ASPIRIN 81 MG TAB.CHEW PO SCH (08:28)
[2018-10-06] MEDS: methylPREDNISolone SOD SUCC PF 125 MG/2 ML VIAL. IV SCH (08:35)
[2018-10-06] MEDS ORDERED: ENOXAPARIN 40 MG/0.4 ML SYRINGE. SQ SCH (09:00)
[2018-10-06 11:09] VITALS: BP 98/59
[2018-10-06 15:20] VITALS: BP 109/58
[2018-10-06] MEDS ORDERED: AZIT250T PO (15:35)
[2018-10-06] MEDS ORDERED: PRED20TA PO (15:40)
--- NOTE | 2018-10-06 19:11 | DS ---
DATE OF DISCHARGE: 10/06/2018 HOSPITAL COURSE: The patient is sitting in the edge of the bed comfortably, in no apparent distress. She is feeling generally much better, has been up and about and denied any chest pain or shortness of breath, cough or phlegm. PHYSICAL EXAMINATION: GENERAL: When I examined her, she looked well and was clearly in no apparent respiratory distress. No pallor, jaundice, cyanosis, or thyromegaly. No jugular venous distension. No lower limb edema. VITAL SIGNS: Her heart rate was 107, blood pressure was 109/58, temperature was 98.2, respiratory rate was 20 and oxygen saturation was 96%. HEENT: Examination of the head, eyes, ears, nose and throat showed normocephalic, atraumatic. NECK: Supple. HEART: Showed normal first and second heart sounds. No gallop, rub or murmur. CHEST: Shows central trachea, equal bilateral expansion air entry, vesicular breath sounds. I could not really appreciate any crepitation or rhonchi. ABDOMEN: Distended, soft, nontender. NEUROLOGIC: She is awake, alert, responding appropriately. All her cranial nerves are intact. EXTREMITIES: She moves extremities without difficulty. Her intake was 442. No output was recorded. LABORATORY DATA: Her lab work showed a white cell count of 6800, hemoglobin 13, hematocrit 38, MCV 93 and platelet count of 191,000 with normal manual differential. His chemistry showed serum sodium of 143, potassium 4.5, chloride 107, bicarbonate 24, anion gap of 12, BUN 11, creatinine 0.8, estimated GFR was 70 mL per minute. Her glucose 127, calcium was 9.2, magnesium was 2.2. Prothrombin time was 10.2, INR 1, aPTT was 0.19. Urinalysis was unremarkable. Three sets of cardiac enzymes were negative. DISCHARGE MEDICATIONS: The patient was discharged home to continue on a tapering course of steroids at 40 mg once a day for 3 days, 30 mg once a day for 3 days, 20 mg 3 times a day and azithromycin ____ once a day for 5 more days. She needs to continue her albuterol sulfate inhaler 1 puff every 4 hours, albuterol sulfate via nebulizer every 6 hours as needed, magnesium oxide 400 mg once a day and she is on Stiolto Respimat 2 puffs daily. FINAL DISCHARGE DIAGNOSES: 1. Chronic obstructive pulmonary disease exacerbation. 2. Cachexia. 3. Osteoarthritis, osteoporosis. PEPE DUBOIS MD DR: ANGIE/kinjal JOB#: [id number] / [id number]
== END 2018-10-06 16:44 | disposition home or self-care (01) | DRG 191 ==
LOC: ER 16:37 → 1 SOUTH 20:41
PROVIDERS: ADMIT Internal Medicine; ATTEND Internal Medicine
DX: J44.1 Chronic obstructive pulmonary disease with (acute) exacerbation (principal); R64 Cachexia; Z68.1 Body mass index [BMI] 19.9 or less, adult; M15.9 Polyosteoarthritis, unspecified; F17.210 Nicotine dependence, cigarettes, uncomplicated; M81.0 Age-related osteoporosis without current pathological fracture; Z80.8 Family history of malignant neoplasm of other organs or systems; Z90.49 Acquired absence of other specified parts of digestive tract; Z98.51 Tubal ligation status; Z88.8 Allergy status to other drugs, medicaments and biological substances
CPT/HCPCS: 36415; 71046; 80048; 80053; 81001; 83690; 83735; 83880; 84484; 85025; 85379; 85610; 93005; 94640; G0238; J0456; J2920; J2930; J7613; J7620

== ENCOUNTER 2018-11-15 09:10 | Emergency (ER) | payer MEDICARE ==
[~2018-11-15] VITALS: Ht 162.6 cm; Wt 50.0 kg
[~2018-11-15 09:10] MED LIST changes: +ALBU2.5V14 NEB
[2018-11-15] MEDS ORDERED: IV NORMAL SALINE 1,000ML 1,000 ML IV SCH (09:21)
--- NOTE | 2018-11-15 09:27 | PHYS DOC ---
Past History Past Medical History: Anxiety, COPD Past Surgical History: Tonsillectomy, Tubal ligation Smoking: Quit Less Than 1 Year Alcohol Use: None Drug Use: None Adult General Chief Complaint Chief Complaint: DIZZY/LIGHT HEADED HPI HPI Patient is a 73-year-old female who presents to the emergency department for evaluation. She states she awakened this morning and felt lightheaded, and also felt like she is short of breath, was having airflow problem. She has not had any pain, including any chest pain. She reports feeling nauseated, and a tingling feeling in her upper extremities bilaterally as well as her abdomen, which she denies any abdominal pain. She has not had any vomiting or diarrhea, pleuritic chest pain, cough, fevers, chills, headache, or vision changes. There are no alleviating or exacerbating factors to the patient's symptoms. The patient was hospitalized here recently for a COPD exacerbation, notes from that hospital stay have been reviewed. Review of Systems Review of Systems Constitutional: Denies fever or chills [] Eyes: Denies change in visual acuity, redness, or eye pain [] HENT: Denies nasal congestion or sore throat [] Respiratory: Denies cough or pain. Reports shortness of breath [] Cardiovascular: The patient denies any chest pain, palpitations, or orthopnea [] GI: Denies abdominal pain, vomiting, bloody stools or diarrhea [] : Denies dysuria or hematuria [] Musculoskeletal: Denies back pain or joint pain [] Integument: Denies rash or skin lesions [] Neurologic: Denies headache, focal weakness or sensory changes, except as noted in the history of present illness [] Endocrine: Denies polyuria or polydipsia [] All other systems were reviewed and found to be within normal limits, except as documented in this note. Current Medications Current Medications Current Medications Medications (Trade) Dose Ordered Sig/Amanda Start Time Stop Time Status Last Admin Dose Admin Albuterol/ Ipratropium (Duoneb) 3 ml 1X ONCE 11/15/18 09:30 11/15/18 09:31 UNV Lorazepam (Ativan Inj) 1 mg 1X ONCE 11/15/18 09:30 11/15/18 09:31 UNV Sodium Chloride 1,000 ml @ 100 mls/hr Q10H 11/15/18 09:21 11/15/18 19:20 UNV Allergies Allergies Allergies Coded Allergies Type Severity Reaction Last Updated Verified influenza virus vaccine ts [id number] (36 mos,up) Allergy Intermediate 10/04/18 Yes Physical Exam Physical Exam PHYSICAL EXAM: CONSTITUTIONAL: Well developed, well nourished HEAD: normocephalic, atraumatic EENT: PERRL, EOMI. Conjunctivae normal color, sclerae non-icteric; moist mucous membranes. NECK: Supple, non-tender; no meningismus. LUNGS: Lungs are clear bilaterally, although breath sounds are diminished at the bases bilaterally. There are no rales, wheezes, or rhonchi. Breathing is moderately labored as the patient is hyperventilating. HEART: Regular rate and rhythm, no murmur CHEST: No deformity; non-tender ABDOMEN: The abdomen is soft, there is diffuse tenderness to palpation to the entire abdomen, without focal tenderness, rebound, or guarding, no masses or bruits. EXTREM: Normal ROM; no deformity, no calf tenderness. Normal pulses palpable in all extremities. There is no pedal edema. SKIN: No rash; no diaphoresis NEURO: Alert; normal speech and cognition; CN's grossly intact; strength grossly intact without focal deficit. BACK: No CVA TTP. Current Patient Data Vital Signs Vital Signs Date Time Temp Pulse Resp B/P (MAP) Pulse Ox O2 Delivery O2 Flow Rate FiO2 11/15/18 09:22 95 18 112/63 (79) 100 Room Air Lab Results Laboratory Tests Test 11/15/18 09:28 11/15/18 10:11 11/15/18 10:32 White Blood Count 5.6 x10^3/uL Red Blood Count 4.60 x10^6/uL Hemoglobin 14.5 g/dL Hematocrit 42.7 % Mean Corpuscular Volume 93 fL Mean Corpuscular Hemoglobin 32 pg Mean Corpuscular Hemoglobin Concent 34 g/dL Red Cell Distribution Width 13.1 % Platelet Count 238 x10^3/uL Neutrophils (%) (Auto) 64 % Lymphocytes (%) (Auto) 26 % Monocytes (%) (Auto) 9 % Eosinophils (%) (Auto) 1 % Basophils (%) (Auto) 1 % Neutrophils # (Auto) 3.5 x10^3uL Lymphocytes # (Auto) 1.4 x10^3/uL Monocytes # (Auto) 0.5 x10^3/uL Eosinophils # (Auto) 0.0 x10^3/uL Basophils # (Auto) 0.1 x10^3/uL Sodium Level 140 mmol/L Potassium Level 3.8 mmol/L Chloride Level 103 mmol/L Carbon Dioxide Level 26 mmol/L Anion Gap 11 Blood Urea Nitrogen 10 mg/dL Creatinine 0.9 mg/dL Estimated GFR (Cockcroft-Gault) 61.4 BUN/Creatinine Ratio 11 Glucose Level 97 mg/dL Lactic Acid Level 1.9 mmol/L Calcium Level 9.4 mg/dL Magnesium Level 2.2 mg/dL Total Bilirubin 0.6 mg/dL Aspartate Amino Transf (AST/SGOT) 30 U/L Alanine Aminotransferase (ALT/SGPT) 31 U/L Alkaline Phosphatase 98 U/L Troponin I Quantitative < 0.017 ng/mL [id number] Natriuretic Peptide 166 pg/mL Total Protein 7.1 g/dL Albumin 4.4 g/dL Albumin/Globulin Ratio 1.6 Urine Collection Type Unknown Urine Color Yellow Urine Clarity Clear Urine pH 7.0 Urine Specific [place] 1.010 Urine Protein Neg Urine Glucose (UA) Neg mg/dL Urine Ketones (Stick) Neg mg/dL Urine Blood Neg Urine Nitrite Neg Urine Bilirubin Neg Urine Urobilinogen Dipstick 0.2 mg/dL Urine Leukocyte Esterase Trace Urine RBC 0 /HPF Urine WBC Rare /HPF Urine Squamous Epithelial Cells None /LPF Urine Bacteria 0 /HPF Blood Gas pH 7.41 Blood Gas PCO2 34 mmHg Blood Gas PO2 70 mmHg Blood Gas HCO3 21 mmol/L Arterial Bld O2 Saturation (Calc) 94 % FiO2 21 % Current Medications Medications (Trade) Dose Ordered Sig/Amanda Route PRN Reason Start Time Stop Time Status Last Admin Dose Admin Lorazepam (Ativan Inj) 1 mg 1X ONCE IV 11/15/18 09:45 11/15/18 09:46 DC Sodium Chloride 1,000 ml @ 100 mls/hr Q10H IV 11/15/18 09:21 11/15/18 19:20 11/15/18 09:39 Albuterol/ Ipratropium (Duoneb) 3 ml 1X ONCE NEB 11/15/18 09:45 11/15/18 09:46 DC 11/15/18 09:39 EKG EKG Normal sinus rhythm at a rate of 87 beats for minute, normal axis, normal intervals, poor anterior R progression, nonspecific ST/T changes without acute ischemic changes noted.[] Radiology/Procedures Radiology/Procedures [PROCEDURE: CHEST PA & LATERAL CHEST PA LATERAL History: Shortness of breath. Dizziness.. Comparison: October 04, 2018. FINDINGS: Heart size not enlarged. Hyperexpansion of both lungs compatible with air trapping. No evidence of infiltrate, pleural effusion or pneumothorax. The visualized bones appear intact. IMPRESSION: No consolidating infiltrate.] Course & Med Decision Making Course & Med Decision Making Pertinent Labs and Imaging studies reviewed. (See chart for details) []11:00 AM: The patient's condition remains stable. She is feeling somewhat better at this time. There was significant delay in having respiratory therapy obtain the ABG, the patient's respiratory status had relaxed by the time the ABG was obtained. Her oxygen saturation is on 100% on room air at this time. I discussed test results with the patient, the need for close follow-up with her PCP, and return precautions. Dragon Disclaimer Dragon Disclaimer This electronic medical record was generated, in whole or in part, using a voice recognition dictation system. Departure Departure: Impression: Primary Impression: Dizziness Disposition: HOME, SELF-CARE Condition: STABLE Referrals: TOM ROPER MD (PCP) Patient Instructions: FAY Hong MD Nov 15, 2018 09:27
[2018-11-15 09:39] LABS: BASO # 0.1 x10^3/uL (0.0-0.2); BASO % 1 % (0-3); EOS % 1 % (0-3); HEMATOCRIT 42.7 % (36.0-47.0); HEMOGLOBIN 14.5 g/dL (12.0-15.5); LYMPH # 1.4 x10^3/uL (1.0-4.8); LYMPH % 26 % (24-48); MEAN CORPUSCULAR HEMOGLOBIN 32 pg (25-35); MEAN CORPUSCULAR HGB CONC 34 g/dL (31-37); MEAN CORPUSCULAR VOLUME 93 fL (79-100); MONO # 0.5 x10^3/uL (0.0-1.1); MONO % 9 % (0-9); NEUT # 3.5 x10^3uL (1.8-7.7); NEUT % 64 % (31-73); PLATELET COUNT 238 x10^3/uL (140-400); RED CELL DISTRIBUTION WIDTH 13.1 % (11.5-14.5); WHITE BLOOD COUNT 5.6 x10^3/uL (4.0-11.0)
[2018-11-15] MEDS ORDERED: IPRATRPIUM/ALBUTEROL 0.5/2.5MG 3 ML NEBU. NEB ONE (09:45)
--- NOTE | 2018-11-15 09:49 | RAD ---
CHEST PA LATERAL History: Shortness of breath. Dizziness.. Comparison: October 04, 2018. FINDINGS: Heart size not enlarged. Hyperexpansion of both lungs compatible with air trapping. No evidence of infiltrate, pleural effusion or pneumothorax. The visualized bones appear intact. IMPRESSION: No consolidating infiltrate. Electronically signed by: Ravin Kevin MD (11/15/2018 9:46 AM) [id number]
[2018-11-15 10:01] LABS: ALBUMIN 4.4 g/dL (3.4-5.0); ALBUMIN/GLOBULIN RATIO 1.6 (1.0-1.7); CALCIUM 9.4 mg/dL (8.5-10.1); CREATININE 0.9 mg/dL (0.6-1.0); GFR 61.4; MAGNESIUM 2.2 mg/dL (1.8-2.4); POTASSIUM 3.8 mmol/L (3.5-5.1); TOTAL BILIRUBIN 0.6 mg/dL (0.2-1.0); TOTAL PROTEIN 7.1 g/dL (6.4-8.2)
--- NOTE | 2018-11-15 10:32 | EKG ---
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
[2018-11-15 10:38] LABS: BILIRUBIN,URINE NEG (NEG); CLARITY,URINE CLEAR; COLOR,URINE YELLOW; GLUCOSE,URINE NEG (NEG)
[2018-11-15 10:39] LABS: BACTERIA,URINE 0 /HPF (0-FEW); NITRITE,URINE NEG (NEG); RBC,URINE 0 /HPF (0-2); UROBILINOGEN,URINE 0.2 mg/dL (0.2 mg/dL); WBC,URINE RARE /HPF (0-4)
[2018-11-15 10:48] LABS: BGAS PH 7.41 (7.35-7.45)
[2018-11-15 11:12] VITALS: BP 104/56
== END 2018-11-15 11:11 | disposition home or self-care (01) ==
LOC: ER 09:10
DX: R42 Dizziness and giddiness (principal); R20.2 Paresthesia of skin; R06.02 Shortness of breath; F41.9 Anxiety disorder, unspecified; J44.9 Chronic obstructive pulmonary disease, unspecified; Z87.891 Personal history of nicotine dependence; Z88.7 Allergy status to serum and vaccine
CPT/HCPCS: 36415; 71046; 80053; 81001; 82803; 83605; 83735; 83880; 84484; 85025; 87086; 93005; 94640; 96360; 99285; J7620; J7030

== ENCOUNTER → 2019-02-07 | Outpatient (CLI) | payer MEDICARE ==
[~2019-02-07] MED LIST changes: +IOHEXOL 240 MG/ML 50ML VIAL. ONE; +IOHEXOL 300 MG/ML 75 ML VIAL. IV ONE
--- NOTE | 2019-02-07 14:44 | RAD ---
Examination: CT ABD PELV W/ORAL IV CONTRAST History: Abdominal pain with bloating for the past 6 months Comparison/Correlation: 02/02/2018 CT abdomen and pelvis without contrast Findings: Axial images of the abdomen and pelvis were obtained following IV and oral contrast. Sagittal and coronal reformatted images were provided. Emphysematous involvement of the lung bases noted. There are at least 2 very small to characterize hepatic dome level low-attenuation lesions which probably represent cysts or biliary hamartomas. Spleen, pancreas, adrenal glands, and kidneys are normal. Gallbladder fossa is unremarkable. Moderate quantity of stool in the colon noted. No bowel obstruction or extraluminal gas. Minimal mesenteric fat is noted limiting assessment. Appendix appears be partially gas-filled and unremarkable. No conclusive inflammatory change about the cecum. No enlarged abdominal or pelvic lymph nodes. Uterus is unremarkable. No ascites or pelvic free fluid. Urinary bladder is unremarkable. Moderate L2-3 space narrowing is present. Impression: No obstruction or extraluminal gas. Large quantity of stool in the colon. No obstruction. PQRS Compliance Statement: One or more of the following individualized dose reduction techniques were utilized for this examination: 1. Automated exposure control 2. Adjustment of the mA and/or kV according to patient size 3. Use of iterative reconstruction technique Electronically signed by: Matt Rahman MD (02/07/2019 2:41 PM) [facility]
== END | disposition home or self-care (01) ==
LOC: CT 08:53
PROVIDERS: ATTEND Family Medicine
DX: J43.9 Emphysema, unspecified (principal); K76.9 Liver disease, unspecified; M48.061 Spinal stenosis, lumbar region without neurogenic claudication
CPT/HCPCS: 74177; Q9967

== ENCOUNTER 2019-04-03 18:47 | Emergency (ER) | payer MEDICARE ==
[~2019-04-03] VITALS: Ht 162.6 cm; Wt 49.0 kg
[~2019-04-03 18:47] MED LIST changes: +DOXY-96 PO; -DOXY100T9 PO; -IOHEXOL 240 MG/ML 50ML VIAL. ONE; -IOHEXOL 300 MG/ML 75 ML VIAL. IV ONE
[2019-04-03 19:38] LABS: BASO # 0.1 x10^3/uL (0.0-0.2); BASO % 1 % (0-3); EOS # 0.1 x10^3/uL (0.0-0.7); EOS % 1 % (0-3); HEMATOCRIT 39.4 % (36.0-47.0); HEMOGLOBIN 13.4 g/dL (12.0-15.5); LYMPH # 2.4 x10^3/uL (1.0-4.8); LYMPH % 24 % (24-48); MEAN CORPUSCULAR HEMOGLOBIN 32 pg (25-35); MEAN CORPUSCULAR HGB CONC 34 g/dL (31-37); MEAN CORPUSCULAR VOLUME 94 fL (79-100); MONO # 0.9 x10^3/uL (0.0-1.1); MONO % 9 % (0-9); NEUT # 6.6 x10^3uL (1.8-7.7); NEUT % 66 % (31-73); PLATELET COUNT 267 x10^3/uL (140-400); RED BLOOD COUNT 4.21 x10^6/uL (3.50-5.40); WHITE BLOOD COUNT 10.1 x10^3/uL (4.0-11.0)
[2019-04-03 19:57] LABS: ALBUMIN 4.1 g/dL (3.4-5.0); ALBUMIN/GLOBULIN RATIO 1.9 (1.0-1.7); CREATININE 0.8 mg/dL (0.6-1.0); GFR 70.3; POTASSIUM 3.8 mmol/L (3.5-5.1); TOTAL BILIRUBIN 0.4 mg/dL (0.2-1.0); TOTAL PROTEIN 6.3 g/dL (6.4-8.2)
[2019-04-03 20:19] LABS: BILIRUBIN,URINE NEG (NEG); CLARITY,URINE CLEAR; COLOR,URINE STRAW; GLUCOSE,URINE NEG (NEG)
[2019-04-03 20:20] LABS: BACTERIA,URINE FEW /HPF (0-FEW); NITRITE,URINE NEG (NEG); RBC,URINE OCC /HPF (0-2); SQUAMOUS EPITHELIAL CELL,UR OCC /LPF; UROBILINOGEN,URINE 0.2 mg/dL (0.2 mg/dL)
[2019-04-03] MEDS ORDERED: PRED50TA PO (21:17)
[2019-04-03 21:27] VITALS: BP 136/68
[2019-04-03] MEDS ORDERED: ALBUTEROL SULFATE 2.5 MG/3 ML NEBU. NEB ONE (21:30)
[2019-04-03] MEDS ORDERED: predniSONE 20 MG TABLET PO ONE (21:30)
--- NOTE | 2019-04-03 23:24 | RAD ---
PA and lateral chest radiographs 04/03/2019 CLINICAL HISTORY: Shortness of breath. PA and lateral digital radiographs of the chest were obtained. Comparison study is dated 11/15/2018. The cardiac silhouette is normal in size. Atherosclerotic calcification of the thoracic aorta is seen. No acute pulmonary infiltrate is seen. No pleural effusion or pneumothorax is noted. The osseous structures are unchanged. IMPRESSION: No acute abnormality is seen. Electronically signed by: Berlin Layton MD (04/03/2019 11:21 PM) [facility]
--- NOTE | 2019-04-28 05:23 | ED.ADGEN ---
Past History Past Medical History: COPD Past Surgical History: Tonsillectomy Smoking: Quit Less Than 1 Year Alcohol Use: None Drug Use: None Adult General Chief Complaint Chief Complaint "I just feel cold" HPI HPI Patient is a 74-year-old female with history of COPD is recently completed 2 courses of antibiotics for treatment of COPD exacerbation who presents with chills and is feeling cold. Patient denies productive cough, fever, nausea, sweats. Ports chest tightness but denies chest pain. No urinary frequency urgency or burning. No abdominal pain. No other acute symptoms or complaints. [] Review of Systems Review of Systems Review symptoms as per history of present illness. All other review symptoms are negative. All other systems were reviewed and found to be within normal limits, except as documented in this note. Current Medications Current Medications Current Medications Medications (Trade) Dose Ordered Sig/Amanda Start Time Stop Time Status Last Admin Dose Admin Albuterol Sulfate (Ventolin) 5 mg 1X ONCE 04/03/19 21:30 04/03/19 21:28 DC 04/03/19 21:15 5 MG Prednisone (Prednisone) 60 mg 1X ONCE 04/03/19 21:30 04/03/19 21:28 DC 04/03/19 21:15 60 MG Allergies Allergies Allergies Coded Allergies Type Severity Reaction Last Updated Verified influenza virus vaccine ts [id number] (36 mos,up) Allergy Intermediate 10/04/18 Yes Physical Exam Physical Exam Constitutional: Well developed, well nourished, no acute distress, non-toxic appearance. [] HENT: Normocephalic, atraumatic, bilateral external ears normal, oropharynx moist, no oral exudates, nose normal. [] Eyes: PERRLA, EOMI, conjunctiva normal, no discharge. [] Neck: Normal range of motion, no tenderness, supple, no stridor. [] Cardiovascular:Heart rate regular rhythm, no murmur [] Lungs & Thorax: Respirations nonlabored, significantly diminished breath sounds bilaterally.[] Abdomen: Bowel sounds normal, soft, no tenderness, no masses, no pulsatile masses. [] Skin: Warm, dry, no erythema, no rash. [] Back: No tenderness, no CVA tenderness. [] Extremities: No tenderness, no cyanosis, no clubbing, ROM intact, no edema. [] Neurologic: Alert and oriented X 3, normal motor function, normal sensory function, no focal deficits noted. [] Psychologic: Affect normal, judgement normal, mood normal. [] Current Patient Data Vital Signs Vital Signs Date Time Temp Pulse Resp B/P (MAP) Pulse Ox O2 Delivery O2 Flow Rate FiO2 04/03/19 21:27 85 18 136/68 (90) 98 04/03/19 19:03 97.7 Room Air Lab Results Laboratory Tests Test 04/03/19 19:16 04/03/19 19:46 White Blood Count 10.1 x10^3/uL (4.0-11.0) Red Blood Count 4.21 x10^6/uL (3.50-5.40) Hemoglobin 13.4 g/dL (12.0-15.5) Hematocrit 39.4 % (36.0-47.0) Mean Corpuscular Volume 94 fL (79-100) Mean Corpuscular Hemoglobin 32 pg (25-35) Mean Corpuscular Hemoglobin Concent 34 g/dL (31-37) Red Cell Distribution Width 13.0 % (11.5-14.5) Platelet Count 267 x10^3/uL (140-400) Neutrophils (%) (Auto) 66 % (31-73) Lymphocytes (%) (Auto) 24 % (24-48) Monocytes (%) (Auto) 9 % (0-9) Eosinophils (%) (Auto) 1 % (0-3) Basophils (%) (Auto) 1 % (0-3) Neutrophils # (Auto) 6.6 x10^3uL (1.8-7.7) Lymphocytes # (Auto) 2.4 x10^3/uL (1.0-4.8) Monocytes # (Auto) 0.9 x10^3/uL (0.0-1.1) Eosinophils # (Auto) 0.1 x10^3/uL (0.0-0.7) Basophils # (Auto) 0.1 x10^3/uL (0.0-0.2) Sodium Level 140 mmol/L (136-145) Potassium Level 3.8 mmol/L (3.5-5.1) Chloride Level 104 mmol/L (98-107) Carbon Dioxide Level 26 mmol/L (21-32) Anion Gap 10 (6-14) Blood Urea Nitrogen 15 mg/dL (7-20) Creatinine 0.8 mg/dL (0.6-1.0) Estimated GFR (Cockcroft-Gault) 70.3 BUN/Creatinine Ratio 19 (6-20) Glucose Level 96 mg/dL (70-99) Calcium Level 9.0 mg/dL (8.5-10.1) Total Bilirubin 0.4 mg/dL (0.2-1.0) Aspartate Amino Transferase (AST) 26 U/L (15-37) Alanine Aminotransferase (ALT) 25 U/L (14-59) Alkaline Phosphatase 93 U/L (46-116) Troponin I Quantitative < 0.017 ng/mL (0-0.055) AL-Dep-Y-Type Natriuretic Peptide 126 pg/mL (0-124) H Total Protein 6.3 g/dL (6.4-8.2) L Albumin 4.1 g/dL (3.4-5.0) Albumin/Globulin Ratio 1.9 (1.0-1.7) H Thyroid Stimulating Hormone (TSH) 1.245 uIU/mL (0.358-3.740) Urine Collection Type Unknown Urine Color Straw Urine Clarity Clear Urine pH 6.5 Urine Specific [place] 1.010 Urine Protein Neg (NEG-TRACE) Urine Glucose (UA) Neg mg/dL (NEG) Urine Ketones (Stick) Neg mg/dL (NEG) Urine Blood Neg (NEG) Urine Nitrite Neg (NEG) Urine Bilirubin Neg (NEG) Urine Urobilinogen Dipstick 0.2 mg/dL (0.2 mg/dL) Urine Leukocyte Esterase Small (NEG) Urine RBC Occ /HPF (0-2) Urine WBC 1-4 /HPF (0-4) Urine Squamous Epithelial Cells Occ /LPF Urine Bacteria Few /HPF (0-FEW) Microbiology 04/03/19 Urine Culture - Final, Complete 04/03/19 Urine Culture Result 1 (ANKIT) - Final, Complete EKG EKG [] Radiology/Procedures Radiology/Procedures [Chest x-ray: Reviewed] Course & Med Decision Making Course & Med Decision Making Pertinent Labs and Imaging studies reviewed. (See chart for details) [ED work up unrevealing. Do not feel patient currently needs or would benefit with antibiotics at this time. Will Rx steroids for underlying COPD with pulmonology follow up. Return precautions reviewed. ] Final Impression Final Impression [1. Copd exacerbation] Khanh Disclaimer Dragon Disclaimer This electronic medical record was generated, in whole or in part, using a voice recognition dictation system. HERBERT MORTON DO Apr 28, 2019 05:23
== END 2019-04-03 21:26 | disposition home or self-care (01) ==
LOC: ER 18:47
DX: J44.1 Chronic obstructive pulmonary disease with (acute) exacerbation (principal); Z90.89 Acquired absence of other organs; Z87.891 Personal history of nicotine dependence; Z88.7 Allergy status to serum and vaccine
CPT/HCPCS: 36415; 71046; 80053; 81001; 83880; 84443; 84484; 85025; 87086; 94640; 99285; J7512; J7613

== ENCOUNTER 2019-04-07 10:37 | Inpatient (IN) | payer MEDICARE ==
[~2019-04-07] VITALS: Ht 162.6 cm; Wt 46.4 kg
[2019-04-07] MEDS ORDERED: methylPREDNISolone SOD SUCC PF 125 MG/2 ML VIAL. IV ONE (11:00)
[2019-04-07] MEDS ORDERED: IPRATRPIUM/ALBUTEROL 0.5/2.5MG 3 ML NEBU. NEB ONE (11:00)
--- NOTE | 2019-04-07 11:03 | PHYS DOC ---
Past History Past Medical History: COPD Past Surgical History: Tonsillectomy Smoking: Quit Less Than 1 Year Alcohol Use: None Drug Use: None Adult General Chief Complaint Chief Complaint: SHORTNESS OF BREATH HPI HPI 73-year-old female presents with shortness of breath. The patient has been seen by her primary care physician as well as in this emergency room last few weeks. She is continued to have shortness of breath and difficulty breathing. She does not really have a cough. She is currently on day 4 of her second 5 day around 50 mg prednisone. She has been using her albuterol nebulizer at home. Her shortness of breath began to get worse yesterday and has continued today. She is not sure what else to do since she is following the doctor's orders and taking the medications prescribed. She is a history of COPD. Any exertion makes her shortness of breath worse. She denies chest pain or diaphoresis. No fever or chills. Review of Systems Review of Systems Constitutional: Denies fever or chills [] Eyes: Denies change in visual acuity, redness, or eye pain [] HENT: Denies nasal congestion or sore throat [] Respiratory: shortness of breath [] Cardiovascular: No additional information not addressed in HPI [] GI: Denies abdominal pain, nausea, vomiting, bloody stools or diarrhea [] : Denies dysuria or hematuria [] Musculoskeletal: Denies back pain or joint pain [] Integument: Denies rash or skin lesions [] Neurologic: Denies headache, focal weakness or sensory changes [] Endocrine: Denies polyuria or polydipsia [] All other systems were reviewed and found to be within normal limits, except as documented in this note. Allergies Allergies Allergies Coded Allergies Type Severity Reaction Last Updated Verified influenza virus vaccine ts [id number] (36 mos,up) Allergy Intermediate 10/04/18 Yes Physical Exam Physical Exam Constitutional: Well developed, well nourished, mild acute distress, non-toxic appearance. [] HENT: Normocephalic, atraumatic, bilateral external ears normal, oropharynx moist, no oral exudates, nose normal. [] Eyes: PERRLA, EOMI, conjunctiva normal, no discharge. [] Neck: Normal range of motion, no tenderness, supple, no stridor. [] Cardiovascular:Heart rate regular rhythm, no murmur [] Lungs & Thorax: Bilateral breath sounds diminished with prolonged expiratory phase, no obvious wheezing[] Abdomen: Bowel sounds normal, soft, no tenderness, no masses, no pulsatile masses. [] Skin: Warm, dry, no erythema, no rash. [] Back: No tenderness, no CVA tenderness. [] Extremities: No tenderness, no cyanosis, no clubbing, ROM intact, no edema. [] Neurologic: Alert and oriented X 3, normal motor function, normal sensory function, no focal deficits noted. [] Psychologic: Affect normal, judgement normal, mood concerned. [] EKG EKG Sinus rhythm, rate 81, normal axis, no ST elevations or depressions.[] Radiology/Procedures Radiology/Procedures [] Impressions: CHEST PA LATERAL History: Shortness of breath. Cough. Comparison: April 03, 2019. Findings: Hyperinflation. No consolidation or pleural effusion. Normal heart size. Impression: 1. Hyperinflation. 2. Otherwise, negative chest. Electronically signed by: Deshawn Velasquez DO (04/07/2019 11:45 AM) [facility] DICTATED AND SIGNED BY: DESHAWN VELASQUEZ DO DATE: 04/07/19 1145 CC: HERBERT ROCHA DO; TOM ROPER MD ~ Course & Med Decision Making Course & Med Decision Making Pertinent Labs and Imaging studies reviewed. (See chart for details) On arrival patient's O2 sat is a hydrated on room air. She has a subjective feeling of being short of breath. She is breathing up to 30 times a minute. She denies dizziness or lightheadedness. I will give her an additional 125 of Solu- Medrol IV as well as a DuoNeb treatment. I plan to admit her to the hospital for COPD exacerbation and failed outpatient treatment. I spoke with Dr. Escobedo and he has accepted patient for admission. [] Dragon Disclaimer Dragon Disclaimer This electronic medical record was generated, in whole or in part, using a voice recognition dictation system. Departure Departure: Impression: Primary Impression: COPD exacerbation Disposition: ADMITTED INPATIENT Admitting Physician: Teressa Escobedo Condition: STABLE Referrals: TOM ROPER MD (PCP) HERBERT ROCHA DO Apr 07, 2019 11:02
[2019-04-07 11:11] LABS: BASO % 0 % (0-3); EOS # 0.1 x10^3/uL (0.0-0.7); EOS % 1 % (0-3); HEMATOCRIT 42.4 % (36.0-47.0); HEMOGLOBIN 14.3 g/dL (12.0-15.5); LYMPH % 8 % (24-48); MEAN CORPUSCULAR HEMOGLOBIN 32 pg (25-35); MEAN CORPUSCULAR HGB CONC 34 g/dL (31-37); MEAN CORPUSCULAR VOLUME 94 fL (79-100); MONO # 0.8 x10^3/uL (0.0-1.1); MONO % 6 % (0-9); NEUT # 11.5 x10^3uL (1.8-7.7); NEUT % 86 % (31-73); PLATELET COUNT 274 x10^3/uL (140-400); RED BLOOD COUNT 4.51 x10^6/uL (3.50-5.40); RED CELL DISTRIBUTION WIDTH 13.3 % (11.5-14.5); WHITE BLOOD COUNT 13.4 x10^3/uL (4.0-11.0)
[2019-04-07 11:27] LABS: BILIRUBIN,URINE NEG (NEG); CLARITY,URINE CLEAR; COLOR,URINE YELLOW; GLUCOSE,URINE NEG (NEG); NITRITE,URINE NEG (NEG); UROBILINOGEN,URINE 0.2 mg/dL (0.2 mg/dL)
[2019-04-07 11:28] LABS: ALBUMIN 4.5 g/dL (3.4-5.0); ALBUMIN/GLOBULIN RATIO 1.4 (1.0-1.7); CALCIUM 9.3 mg/dL (8.5-10.1); CREATININE 0.9 mg/dL (0.6-1.0); GFR 61.4; POTASSIUM 3.2 mmol/L (3.5-5.1); TOTAL BILIRUBIN 0.8 mg/dL (0.2-1.0); TOTAL PROTEIN 7.7 g/dL (6.4-8.2)
[2019-04-07 11:28] LABS: BACTERIA,URINE 0 /HPF (0-FEW); RBC,URINE RARE /HPF (0-2); SQUAMOUS EPITHELIAL CELL,UR OCC /LPF; WBC,URINE RARE /HPF (0-4)
[2019-04-07 11:33] LABS: % BANDS 1 % (0-9); % LYMPHS 10 % (24-48); % MONOS 2 % (0-10); % SEGS 87 % (35-66)
[2019-04-07 11:38] LABS: PLT ESTIMATE ADEQUATE (ADEQUATE)
--- NOTE | 2019-04-07 11:48 | RAD ---
CHEST PA LATERAL History: Shortness of breath. Cough. Comparison: April 03, 2019. Findings: Hyperinflation. No consolidation or pleural effusion. Normal heart size. Impression: 1. Hyperinflation. 2. Otherwise, negative chest. Electronically signed by: Deshawn Velasquez DO (04/07/2019 11:45 AM) [facility]
[2019-04-07] MEDS ORDERED: ONDANSETRON PF 4 MG/2 ML VIAL. IV PRN (12:15)
[2019-04-07 14:36] VITALS: BP 104/64
[2019-04-07] MEDS ORDERED: IPRATRPIUM/ALBUTEROL 0.5/2.5MG 3 ML NEBU. NEB SCH (16:00)
[2019-04-07] MEDS ORDERED: ALBUTEROL SULFATE 2.5 MG/3 ML NEBU. NEB SCH (16:00)
[2019-04-07] MEDS: IPRATRPIUM/ALBUTEROL 0.5/2.5MG 3 ML NEBU. NEB SCH ×2 (16:46→20:44)
[2019-04-07] MEDS ORDERED: POTASSIUM CHLORIDE 20 MEQ TABLET.ER. PO ONE (17:30)
[2019-04-07] MEDS: ENOXAPARIN 40 MG/0.4 ML SYRINGE. SQ SCH (17:40)
[2019-04-07] MEDS ORDERED: LORazepam 0.5 MG TABLET PO PRN (17:45)
[2019-04-07] MEDS ORDERED: NON FORMULARY ITEM (Albuterol Sulfate (Albuterol Sulfate Conc Neb Soln) 1 VIAL) NEB SCH (18:00)
[2019-04-07 20:01] VITALS: BP 101/66
[2019-04-07] MEDS: BUDESONIDE 0.5 MG/2 ML NEBU NEB SCH (20:44)
--- NOTE | 2019-04-07 20:48 | HP ---
ADMIT DATE: 04/07/2019 HISTORY OF PRESENT ILLNESS: The patient is a 73-year-old female patient who presented to the Emergency Room with shortness of breath. She has been seen by her primary care physician as well as in the Emergency Room for the last few weeks. She continued to have shortness of breath and difficulty breathing. She has cough, is mostly dry. Denied any chest pain, denied any phlegm or hemoptysis. She is currently on day 4 of her second 5-day course of 50 mg of prednisone. She has been using her albuterol nebulizer at home. However, her shortness of breath began to get worse yesterday and has continued today. She is not sure what else to do since she is following with doctors' orders taking her medication as prescribed. She has a history of COPD and exertion makes her shortness of breath worse. She denied any chest pain or diaphoresis. No fevers or chills. She apparently has had CT scan of the chest done last Monday and it did show that the nodule in the right lower lobe has increased slightly and now has a satellite nodule. This is concerning for malignancy and conglomerate. Her both nodules measures [address] scan may be useful. Ongoing management was recommended. She has gvcoywon-xw-klqagx centrilobular emphysema. She has aortic valve calcification. She arrived to the Emergency Room. She was extensively investigated. Her chest x-ray showed no consolidation or pleural effusion, normal heart size, but hyperinflated lungs. Her oxygen saturation was normal at 96% on room air. Her lab works were unremarkable. She has white cell count slightly elevated at 13,400, likely due to steroid effect. She has also hypokalemia and her urinalysis was essentially unremarkable and was admitted for further evaluation and treatment. PAST MEDICAL HISTORY: Significant for chronic obstructive pulmonary disease and generalized osteoarthritis. PAST SURGICAL HISTORY: Significant for tonsillectomy, breast biopsy, tubal ligation, esophagogastroduodenoscopy and colonoscopy. ALLERGIES: SHE IS ALLERGIC TO FLU SHOTS. FAMILY HISTORY: She has 4 brothers and 5 sisters. One brother of thyroid cancer at the age of 60. Her father at age of 93 and mother at age of 98. SOCIAL HISTORY: She is . She has one daughter and one son. She quit smoking about a year ago. She smoked at least 10 cigarettes a day for almost 50 years. She does not drink alcohol. 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 She worked at [employer] for 10 years and also worked with friend's and she is currently retired. MEDICATIONS: She is currently on Stiolto Respimat inhaler 2 puffs once a day. She is on albuterol sulfate 2.5 mg 0.5 mL by nebulizer every 6 hours, prednisone 50 mg p.o. daily. PHYSICAL EXAMINATION: GENERAL: On arrival, the patient was markedly tachypneic. There was no pallor, jaundice, cyanosis, or thyromegaly. No jugular venous distension. No limb edema. VITAL SIGNS: Her heart rate was 95, blood pressure was 104/64, temperature was 97.7, respiratory rate was 45 initially when she arrived and her oxygen saturation was 100% on room air. HEAD, EYES, EARS, NOSE AND THROAT: Showed normocephalic, atraumatic. NECK: Supple. HEART: Showed normal first and second heart sounds. No gallop, rub or murmur. CHEST: Clear to auscultation. No crepitation or rhonchi. Chest showed central trachea, equally reduced expansion, reduced air entry, vesicular sounds. I could not really appreciate any crepitation or rhonchi. ABDOMEN: Scaphoid, soft, nontender. NEUROLOGIC: She was awake, alert, responding appropriately. All cranial nerves intact. EXTREMITIES: She moves extremities without difficulty. LABORATORY DATA: Showed a white cell count of 13,400, hemoglobin 14, hematocrit 42, MCV 94 and platelet count 274,000. Her chemistry showed a serum sodium 139, potassium 3.2, chloride 100, bicarbonate 27, anion gap of 12, BUN 13, creatinine 0.9, estimated GFR was 61 mL per minute. Her glucose was 94, calcium was 9.3. Total bilirubin, AST, ALT, alkaline phosphatase were normal. Total protein was 7.7, albumin was 4.5. Troponin was less than 0.017. Her urinalysis was essentially unremarkable and chest x-ray showed hyperinflation. No consolidation, pleural effusion and normal heart size. ASSESSMENT AND PLAN: In summary, this is a 73-year-old female patient who is coming with increasing shortness of breath despite treatment with steroids and antibiotic. Her shortness of breath is worsened by any exertion. She has qppemiuh-cj-yxvryf centrilobular emphysema. She has also a nodule in the right lower lobe that has increased slightly in size, now has a satellite nodule that is concerning for malignancy and conglomerate, both nodules measure [address] scan may be useful. She has also aortic valve calcification. My plan is to continue with IV steroids, continue with perhaps some Mucinex and nebulized albuterol and Atrovent. I will arrange for her to have an echocardiogram to rule out possibility of severe aortic stenosis and also a CT scan of the chest with PE protocol to exclude the possibility of pulmonary embolism as the underlying cause of worsening of her symptoms. I will also check her morning cortisol as she has hypokalemia concerning for possible ectopic ACTH syndrome. PEPE DUBOIS MD DR: ANGIE/kinjal JOB#: [id number] / [id number]
[2019-04-07] MEDS: POTASSIUM CHLORIDE 20 MEQ TABLET.ER. PO SCH (22:25)
[2019-04-07] MEDS: methylPREDNISolone SOD SUCC PF 40 MG/ML VIAL. IV SCH (22:25)
[2019-04-07 23:00] VITALS: BP 106/68
--- NOTE | 2019-04-08 03:34 | EKG ---
[address] [address] Test Date: 2019-04-07 Test Time: 11:14:39 Pat Name: CEM ABARCA Department: Room: Gender: F Line Service Technician: THEA : 1945 Requested By: HERBERT ROCHA Order Number: [id number] Reading MD: Measurements Intervals [place] Rate: 81 P: 90 [place]: 156 QRS: 82 QRSD: 80 T: 56 QT: 366 QTc: 426 Interpretive Statements SINUS RHYTHM QRS(T) CONTOUR ABNORMALITY CONSISTENT WITH ANTEROSEPTAL INFARCT PROBABLY OLD ABNORMAL ECG RI6.01 No previous ECG available for comparison
[2019-04-08] MEDS: IPRATRPIUM/ALBUTEROL 0.5/2.5MG 3 ML NEBU. NEB SCH ×2 (05:23→10:10)
[2019-04-08 05:27] VITALS: BP 101/63
[2019-04-08] MEDS: ENOXAPARIN 40 MG/0.4 ML SYRINGE. SQ SCH (06:17)
[2019-04-08] MEDS: methylPREDNISolone SOD SUCC PF 40 MG/ML VIAL. IV SCH (06:17)
[2019-04-08 08:05] LABS: CALCIUM 9.1 mg/dL (8.5-10.1); CREATININE 0.8 mg/dL (0.6-1.0); GFR 70.3; POTASSIUM 5.1 mmol/L (3.5-5.1)
[2019-04-08] MEDS ORDERED: IOHEXOL 350 MG/ML 100 ML VIAL. IV ONE (08:15)
[2019-04-08] MEDS ORDERED: NON FORMULARY ITEM (Tiotropium Br/Olodaterol HCl (Stiolto Respimat Inhal Spray) 2 PUFF) IH SCH (09:00)
--- NOTE | 2019-04-08 09:29 | RAD ---
Chest CTA History: Worsening shortness of breath Technique: After bolus of intravenous contrast, CT imaging was performed of the chest. Multiplanar reconstruction images to include MIP reconstruction images are submitted. Exposure: One or more of the following individualized dose reduction techniques were utilized for this examination: 1. Automated exposure control 2. Adjustment of the mA and/or kV according to patient size 3. Use of iterative reconstruction technique. Comparison: Noncontrast exam 04/05/2019 Findings: No pulmonary embolism is identified. There is again fairly severe emphysema. There is no pleural pericardial effusion, pneumothorax, new lobar infiltrate. Major airways are patent. There is heterogeneity of the spleen although may be due to differential in perfusion during exam. There is again approximate 0.6 cm noncalcified right lower lobe pulmonary nodule image 57 series 3, also adjacent 0.4 cm nodule which was new since August 15, 2018 exam. There is again some nodularity and calcifications of the left thyroid gland. There is again aortic valvular calcification. Thoracic aortic caliber is within normal limits without dissection flap. Impression: 1. No pulmonary embolism is identified. There is no new infiltrate. 2. There is again fairly severe emphysema. 3. There are again some foci of adjacent nodularity of the right lower lobe, smaller nodule new since the August 2018 exam. Again malignancy is possible for which PET CT or short-term 3 month follow-up advised. Electronically signed by: Torres Cai MD (04/08/2019 9:26 AM) [id number]
[2019-04-08] MEDS: BUDESONIDE 0.5 MG/2 ML NEBU NEB SCH (10:10)
[2019-04-08] MEDS: POTASSIUM CHLORIDE 20 MEQ TABLET.ER. PO SCH (10:16)
[2019-04-08 10:59] VITALS: BP 100/54
[2019-04-08 14:37] VITALS: BP 110/72
--- NOTE | 2019-04-08 19:11 | DS ---
DATE OF DISCHARGE: HOSPITAL COURSE: The patient is a 73-year-old female patient who came with extreme shortness of breath on exertion that has been worsening. She has received 2 courses of antibiotic and 2 courses of oral steroids at the high dose without much improvement and therefore she came to the Emergency Room for further evaluation and treatment. Her chest x-ray showed that she has severe emphysema and I did actually order a CT angio of the chest to rule out possibility of pulmonary emboli and was negative. She apparently had had an echocardiogram done about 3 or 4 months ago. She has aortic valve calcification, but there was no significant aortic stenosis and as she continued to be extremely short of breath, a decision was made to transfer her to [facility] to consult the Pulmonary services. She does have a pulmonary nodule that has increased in size; however, she has never had any ____ lung biopsy or transbronchial biopsy to confirm or refute the nature of this nodule. She has never had a PET/CT scan before. PHYSICAL EXAMINATION: GENERAL: When I examined her this morning, she was cachectic, but no jaundice, cyanosis or thyromegaly. No jugular venous distention. No limb edema. VITAL SIGNS: Her heart rate was 96, blood pressure 100/54, temperature was 98, respiratory rate 20, and oxygen saturation was 96%. HEAD, EYES, EARS, NOSE AND THROAT: Showed she is normocephalic, atraumatic. NECK: Supple. HEART: Showed normal first and second heart sounds with no gallop, rub or murmur. CHEST: Clear to auscultation. No crepitation or rhonchi. ABDOMEN: Distended, soft, nontender. No guarding or rigidity. No organomegaly. All hernial orifice intact. Bowel sounds normal. NEUROLOGIC: She was grossly intact. LABORATORY DATA: Showed a serum sodium 141, potassium 5.1, chloride 105, bicarbonate 26, anion gap of 10, BUN 14, creatinine 0.8, estimated GFR was 70 mL per minute. Her glucose 117, calcium was 9.1. White cell count was 13,400, hemoglobin 14, hematocrit 42, MCV 94 and platelet count 274,000. DISCHARGE MEDICATIONS: She will be discharged to continue on Solu-Medrol 40 mg IV q. 8 hourly, potassium chloride 20 mEq twice a day, Pulmicort 0.5 mg by nebulizer twice a day, lorazepam 0.5 mg every 6 hours, Lovenox 40 mg subcutaneously twice a day, albuterol and Atrovent 4 times a day and Zofran 4 mg IV q. 6 hourly. FINAL DISCHARGE DIAGNOSES: Nipct-dl-oxmpqda respiratory failure, severe emphysema, and pulmonary nodule that has increased in size. PEPE DUBOIS MD DR: ANGIE/kinjal JOB#: [id number] / [id number]
== END 2019-04-08 14:21 | disposition home or self-care (01) | DRG 189 ==
LOC: ER 10:37 → 1 SOUTH 13:33
PROVIDERS: ADMIT Internal Medicine; ATTEND Internal Medicine
DX: J96.20 Acute and chronic respiratory failure, unspecified whether with hypoxia or hypercapnia (principal); J43.2 Centrilobular emphysema; F17.210 Nicotine dependence, cigarettes, uncomplicated; M15.9 Polyosteoarthritis, unspecified; J98.4 Other disorders of lung; T38.0X5A Adverse effect of glucocorticoids and synthetic analogues, initial encounter; Y92.89 Other specified places as the place of occurrence of the external cause; Z88.7 Allergy status to serum and vaccine; Z80.8 Family history of malignant neoplasm of other organs or systems
CPT/HCPCS: 36415; 71046; 71250; 71275; 80048; 80053; 81001; 82533; 84484; 85007; 85025; 93005; 94640; 94760; 96374; J1650; J2920; J2930; J7620; J7626; Q9967; 99285-25

== ENCOUNTER → 2019-04-13 | Outpatient (CLI) | payer MEDICARE ==
[2019-04-08 14:37] VITALS: BP 110/72
--- NOTE | 2019-04-13 11:22 | RAD ---
AP upright and supine abdomen x-rays HISTORY: Constipation. FINDINGS: No pneumoperitoneum. Lung bases unremarkable. There is prominent gaseous distention within the large bowel and lesser distention within small bowel. There are no dilated small bowel loops or abnormal air-fluid levels within small bowel evident. There are some mild air-fluid levels within the small bowel at the lower quadrants. Normal diameter of the small bowel which measures 2 cm or less. No significant volume of stool within the large bowel evident. Lumbar scoliosis. IMPRESSION: Moderate gaseous distention of the large bowel. No small bowel obstruction evident. Electronically signed by: Aaron Lauren MD (04/13/2019 11:19 AM) [facility]
== END | disposition home or self-care (01) ==
LOC: PMG 10:33
PROVIDERS: ATTEND Physician Assistant
DX: K63.89 Other specified diseases of intestine (principal); K59.00 Constipation, unspecified; M41.86 Other forms of scoliosis, lumbar region
CPT/HCPCS: 74019

== ENCOUNTER 2019-08-11 13:49 | Emergency (ER) | payer MEDICARE ==
[~2019-08-11] VITALS: Ht 162.6 cm; Wt 45.6 kg
--- NOTE | 2019-08-11 14:13 | PHYS DOC ---
Past History Past Medical History: COPD Past Surgical History: Tonsillectomy Smoking: Quit Greater Than 1 Year Alcohol Use: None Drug Use: None Adult General Chief Complaint Chief Complaint: SHORTNESS OF BREATH [facility] HPI Patient is a 74-year-old female, with a history of COPD, who presents to the emergency department for evaluation. She states for the past 2 days she has had increasing shortness of breath. She has a chronic nonproductive cough, not significantly changed. She reports a fullness and tightness in her breathing, but no other chest pain or other painful areas. She denies any pleuritic pain or definite orthopnea. She has had some very mild nasal congestion, but no fevers or chills. There are no alleviating or exacerbating factors to her symptoms. She has tried home nebulizer medication, without improvement in her symptoms. She also states that she has an emergency prednisone prescription at home, and she took 40 mg yesterday afternoon, and 40 mg again this morning. She has taken 2 nebulizer treatments, with duo nebs, today, as well as use her Ventolin inhaler. The patient states she has stopped smoking about 15 months ago. Review of Systems Review of Systems Constitutional: Denies fever or chills [] Eyes: Denies change in visual acuity, redness, or eye pain [] HENT: Denies nasal congestion or sore throat [] Respiratory:No additional information not addressed in HPI[] Cardiovascular: The patient denies any chest pain, palpitations, or orthopnea [] GI: Denies abdominal pain, nausea, vomiting, bloody stools or diarrhea [] : Denies dysuria or hematuria [] Musculoskeletal: Denies back pain or joint pain [] Integument: Denies rash or skin lesions [] Neurologic: Denies headache, focal weakness or sensory changes [] Endocrine: Denies polyuria or polydipsia [] All other systems were reviewed and found to be within normal limits, except as documented in this note. Allergies Allergies Allergies Coded Allergies Type Severity Reaction Last Updated Verified influenza virus vaccine ts [id number] (36 mos,up) Allergy Intermediate 10/04/18 Yes cyclobenzaprine Allergy Unknown 08/11/19 Yes Physical Exam Physical Exam PHYSICAL EXAM: CONSTITUTIONAL: Well developed, well nourished HEAD: normocephalic, atraumatic EENT: PERRL, EOMI. Conjunctivae normal color, sclerae non-icteric; moist mucous membranes. NECK: Supple, non-tender; no meningismus. LUNGS: There are globally diminished breath sounds in all lung sanderson, without any rales, wheezes, or rhonchi. Breathing is mildly labored. HEART: Regular rate and rhythm, no murmur CHEST: No deformity; non-tender ABDOMEN: The abdomen is soft, and non-tender, no masses or bruits. EXTREM: Normal ROM; no deformity, no calf tenderness. Normal pulses palpable in all extremities. There is no pedal edema. SKIN: No rash; no diaphoresis NEURO: Alert; normal speech and cognition; CN's grossly intact; strength grossly intact without focal deficit. BACK: No CVA TTP. Current Patient Data Lab Results Laboratory Tests Test 08/11/19 14:15 White Blood Count 7.7 x10^3/uL Red Blood Count 4.32 x10^6/uL Hemoglobin 13.4 g/dL Hematocrit 40.3 % Mean Corpuscular Volume 93 fL Mean Corpuscular Hemoglobin 31 pg Mean Corpuscular Hemoglobin Concent 33 g/dL Red Cell Distribution Width 13.4 % Platelet Count 234 x10^3/uL Neutrophils (%) (Auto) 93 % Lymphocytes (%) (Auto) 6 % Monocytes (%) (Auto) 1 % Eosinophils (%) (Auto) 0 % Basophils (%) (Auto) 0 % Neutrophils # (Auto) 7.2 x10^3uL Lymphocytes # (Auto) 0.4 x10^3/uL Monocytes # (Auto) 0.1 x10^3/uL Eosinophils # (Auto) 0.0 x10^3/uL Basophils # (Auto) 0.0 x10^3/uL Sodium Level 139 mmol/L Potassium Level 3.7 mmol/L Chloride Level 103 mmol/L Carbon Dioxide Level 23 mmol/L Anion Gap 13 Blood Urea Nitrogen 14 mg/dL Creatinine 0.8 mg/dL Estimated GFR (Cockcroft-Gault) 70.1 BUN/Creatinine Ratio 18 Glucose Level 136 mg/dL Calcium Level 9.5 mg/dL Total Bilirubin 0.3 mg/dL Aspartate Amino Transf (AST/SGOT) 29 U/L Alanine Aminotransferase (ALT/SGPT) 26 U/L Alkaline Phosphatase 100 U/L Troponin I Quantitative 0.019 ng/mL DT-Anc-M-Type Natriuretic Peptide 388 pg/mL Total Protein 7.0 g/dL Albumin 4.1 g/dL Albumin/Globulin Ratio 1.4 Influenza Type A (Rapid) Negative Influenza Type B (Rapid) Negative Current Medications Medications (Trade) Dose Ordered Sig/Amanda Route PRN Reason Start Time Stop Time Status Last Admin Dose Admin Albuterol/ Ipratropium (Duoneb) 3 ml 1X ONCE NEB 08/11/19 14:30 08/11/19 14:31 DC 08/11/19 14:14 Methylprednisolone Sodium Succinate (SOLU-Medrol 125MG VIAL) 62.5 mg 1X ONCE IV 08/11/19 14:30 08/11/19 14:31 DC 08/11/19 14:28 EKG EKG []Normal sinus rhythm a rate of 94 bpm, normal axis, normal intervals. There are no acute ischemic ST/T changes. Radiology/Procedures Radiology/Procedures ER physician preliminary chest x-ray interpretation: Chronic changes consistent with COPD without acute infiltrate or other abnormality.[] Course & Med Decision Making Course & Med Decision Making Pertinent Labs and Imaging studies reviewed. (See chart for details) []3:30 PM:Patient remains stable. I discussed test results, the need for close follow-up, and return precautions. Patient will be started on a course of antibiotics. She will continue her previously prescribed steroids. Dragon Disclaimer Dragon Disclaimer This electronic medical record was generated, in whole or in part, using a voice recognition dictation system. Departure Departure: Impression: Primary Impression: COPD exacerbation Disposition: 01 HOME, SELF-CARE Condition: STABLE Referrals: TOM ROPER MD (PCP) Patient Instructions: Chronic Obstructive Pulmonary Disease Exacerbation Scripts Azithromycin (ZITHROMAX) 250 Mg Tablet 1 PKG PO UD for -, #6 TAB Prov: FAY AZUL MD 08/11/19 FAY AZUL MD Aug 11, 2019 14:13
--- NOTE | 2019-08-11 14:23 | EKG ---
[address] [address] Test Date: 2019-08-11 Test Time: 14:09:21 Pat Name: CEM ABARCA Department: Room: Gender: F Grades 1 Through 5 Teacher: : 1945 Requested By: FAY AZUL Order Number: [id number] Reading MD: Measurements Intervals [place] Rate: 94 P: 90 MD: 148 QRS: 83 QRSD: 78 T: 64 QT: 354 QTc: 448 Interpretive Statements SINUS RHYTHM NORMAL ECG RI6.01 No previous ECG available for comparison
[2019-08-11] MEDS ORDERED: IPRATRPIUM/ALBUTEROL 0.5/2.5MG 3 ML NEBU. NEB ONE (14:30)
[2019-08-11] MEDS ORDERED: methylPREDNISolone SOD SUCC PF 125 MG/2 ML VIAL. IV ONE (14:30)
[2019-08-11 14:37] LABS: BASO % 0 % (0-3); EOS % 0 % (0-3); HEMATOCRIT 40.3 % (36.0-47.0); HEMOGLOBIN 13.4 g/dL (12.0-15.5); LYMPH # 0.4 x10^3/uL (1.0-4.8); LYMPH % 6 % (24-48); MEAN CORPUSCULAR HEMOGLOBIN 31 pg (25-35); MEAN CORPUSCULAR HGB CONC 33 g/dL (31-37); MEAN CORPUSCULAR VOLUME 93 fL (79-100); MONO # 0.1 x10^3/uL (0.0-1.1); MONO % 1 % (0-9); NEUT # 7.2 x10^3uL (1.8-7.7); NEUT % 93 % (31-73); PLATELET COUNT 234 x10^3/uL (140-400); RED BLOOD COUNT 4.32 x10^6/uL (3.50-5.40); RED CELL DISTRIBUTION WIDTH 13.4 % (11.5-14.5); WHITE BLOOD COUNT 7.7 x10^3/uL (4.0-11.0)
[2019-08-11 14:53] LABS: CALCIUM 9.5 mg/dL (8.5-10.1); CREATININE 0.8 mg/dL (0.6-1.0); GFR 70.1; INFLUENZA A PATIENT NEGATIVE (NEGATIVE); INFLUENZA B PATIENT NEGATIVE (NEGATIVE); POTASSIUM 3.7 mmol/L (3.5-5.1)
[2019-08-11 15:06] LABS: ALBUMIN 4.1 g/dL (3.4-5.0); ALBUMIN/GLOBULIN RATIO 1.4 (1.0-1.7); TOTAL BILIRUBIN 0.3 mg/dL (0.2-1.0)
[2019-08-11 15:27] VITALS: BP 115/65
[2019-08-11] MEDS ORDERED: AZIT250T PO (15:31)
--- NOTE | 2019-08-11 15:31 | RAD ---
PA and lateral chest x-rays HISTORY: Shortness of breath, COPD. COMPARISON: CT chest April 08, 2019. FINDINGS: Heart size normal. Mediastinal silhouette is normal. Hyperinflation of the lungs and flattening of the diaphragms typical of air trapping, likely from COPD. This is similar to prior imaging. No pneumothorax, pulmonary opacities or pleural effusions. Bones are unremarkable. IMPRESSION: No acute process. Hyperinflation of the lungs similar to prior imaging. Electronically signed by: Aaron Lauren MD (08/11/2019 3:29 PM) [id number]
== END 2019-08-11 15:39 | disposition home or self-care (01) ==
LOC: ER 13:49
DX: J44.1 Chronic obstructive pulmonary disease with (acute) exacerbation (principal); Z87.891 Personal history of nicotine dependence; Z88.7 Allergy status to serum and vaccine; Z88.8 Allergy status to other drugs, medicaments and biological substances
CPT/HCPCS: 36415; 71046; 80053; 83880; 84484; 85025; 87804; 93005; 94640; 96374; 99285; J2930

== ENCOUNTER 2019-09-06 08:45 | Emergency (ER) | payer MEDICARE ==
[~2019-09-06] VITALS: Ht 162.6 cm; Wt 45.6 kg
--- NOTE | 2019-09-06 09:20 | PHYS DOC ---
Past History Past Medical History: COPD Past Surgical History: Tonsillectomy Smoking: Quit Greater Than 1 Year Additional Smoking Information: QUIT 1 YEAR Alcohol Use: None Drug Use: None Adult General Chief Complaint Chief Complaint: SHORTNESS OF BREATH HPI HPI 74-year-old female presents with shortness of breath. Patient has been having increasing shortness of breath for last 2 days. This started spontaneously and there was no inciting event. Patient has a history of COPD. She states she just feels a gets harder to get breath. She was treated for COPD exacerbation was 6 weeks ago. She recovered between that episode and this one. She has been taking her breathing treatments as prescribed. She denies fever or chills. She has no COVID 19 risk factors, such as travel or exposure to a confirmed or suspected patient. Review of Systems Review of Systems Constitutional: Denies fever or chills [] Eyes: Denies change in visual acuity, redness, or eye pain [] HENT: Denies nasal congestion or sore throat [] Respiratory: shortness of breath [] Cardiovascular: No additional information not addressed in HPI [] GI: Denies abdominal pain, nausea, vomiting, bloody stools or diarrhea [] : Denies dysuria or hematuria [] Musculoskeletal: Denies back pain or joint pain [] Integument: Denies rash or skin lesions [] Neurologic: Denies headache, focal weakness or sensory changes [] Endocrine: Denies polyuria or polydipsia [] All other systems were reviewed and found to be within normal limits, except as documented in this note. Allergies Allergies Allergies Coded Allergies Type Severity Reaction Last Updated Verified influenza virus vaccine ts [id number] (36 mos,up) Allergy Intermediate 10/04/18 Yes cyclobenzaprine Allergy Unknown 08/11/19 Yes Physical Exam Physical Exam Constitutional: Well developed, well nourished, no acute distress, non-toxic appearance. [] HENT: Normocephalic, atraumatic, bilateral external ears normal, oropharynx moist, no oral exudates, nose normal. [] Eyes: PERRLA, EOMI, conjunctiva normal, no discharge. [] Neck: Normal range of motion, no tenderness, supple, no stridor. [] Cardiovascular:Heart rate regular rhythm, no murmur [] Lungs & Thorax: Bilateral breath sounds diminished with prolonged expiratory phase. No obvious wheezing[] Abdomen: Bowel sounds normal, soft, no tenderness, no masses, no pulsatile masses. [] Skin: Warm, dry, no erythema, no rash. [] Back: No tenderness, no CVA tenderness. [] Extremities: No tenderness, no cyanosis, no clubbing, ROM intact, no edema. [] Neurologic: Alert and oriented X 3, normal motor function, normal sensory function, no focal deficits noted. [] Psychologic: Affect normal, judgement normal, mood normal. [] Current Patient Data Vital Signs Vital Signs Date Time Temp Pulse Resp B/P (MAP) Pulse Ox O2 Delivery O2 Flow Rate FiO2 09/06/19 08:45 97.6 90 28 118/87 (97) 100 Room Air EKG EKG Sinus rhythm, rate 89, normal axis, no ST elevations or depressions.[] Radiology/Procedures Radiology/Procedures [] Impressions: Chest, PA and Lateral: Technique: PA and lateral views of the chest were obtained. History: Shortness of breath. Comparison: 08/11/2019. Findings: The heart and pulmonary vasculature appear within normal limits. The lungs are clear. The pleural margins are clear. Impression: No acute chest process is seen. Electronically signed by: Martínez Red MD (09/06/2019 9:37 AM) [id number] DICTATED AND SIGNED BY: MARTÍNEZ RED MD DATE: 09/06/19 0937 CC: HERBERT ROCHA DO; TOM ROPER MD ~ Course & Med Decision Making Course & Med Decision Making Pertinent Labs and Imaging studies reviewed. (See chart for details) I have treated the patient with a DuoNeb treatment as well as 125 of Solu-Medrol IV. Her oxygen saturation is a room air. She does not qualify for admission. Discharge her on 3 additional days of prednisone 50 mg daily. Her labs are unremarkable. Her chest x-ray is negative for acute findings. Her EKG is unremarkable. She is stable for discharge at this time. [] Dragon Disclaimer Dragon Disclaimer This electronic medical record was generated, in whole or in part, using a voice recognition dictation system. Departure Departure: Impression: Primary Impression: COPD exacerbation Disposition: 01 HOME, SELF-CARE Condition: STABLE Referrals: TOM ROPER MD (PCP) Patient Instructions: Chronic Obstructive Pulmonary Disease Exacerbation, Ea sy-to-Read Scripts Prednisone (PREDNISONE) 50 Mg Tablet 1 TAB PO DAILY for COPD exacerbation for 3 Days, #3 TAB Prov: HERBERT ROCHA DO 09/06/19 HERBERT ROCHA DO Sep 06, 2019 09:20
[2019-09-06 09:27] LABS: BASO # 0.1 x10^3/uL (0.0-0.2); BASO % 1 % (0-3); EOS # 0.1 x10^3/uL (0.0-0.7); EOS % 2 % (0-3); HEMATOCRIT 41.4 % (36.0-47.0); HEMOGLOBIN 13.8 g/dL (12.0-15.5); LYMPH # 0.8 x10^3/uL (1.0-4.8); LYMPH % 14 % (24-48); MEAN CORPUSCULAR HEMOGLOBIN 31 pg (25-35); MEAN CORPUSCULAR HGB CONC 33 g/dL (31-37); MEAN CORPUSCULAR VOLUME 93 fL (79-100); MONO # 0.8 x10^3/uL (0.0-1.1); MONO % 13 % (0-9); NEUT # 4.1 x10^3uL (1.8-7.7); NEUT % 70 % (31-73); PLATELET COUNT 250 x10^3/uL (140-400); RED BLOOD COUNT 4.45 x10^6/uL (3.50-5.40); RED CELL DISTRIBUTION WIDTH 13.2 % (11.5-14.5); WHITE BLOOD COUNT 5.9 x10^3/uL (4.0-11.0)
[2019-09-06] MEDS: IPRATRPIUM/ALBUTEROL 0.5/2.5MG 3 ML NEBU. NEB ONE (09:30)
[2019-09-06 09:34] LABS: CALCIUM 9.1 mg/dL (8.5-10.1); CREATININE 0.8 mg/dL (0.6-1.0); GFR 70.1; POTASSIUM 3.9 mmol/L (3.5-5.1)
[2019-09-06 09:40] LABS: ALBUMIN 3.6 g/dL (3.4-5.0); ALBUMIN/GLOBULIN RATIO 1.3 (1.0-1.7); TOTAL BILIRUBIN 0.6 mg/dL (0.2-1.0); TOTAL PROTEIN 6.4 g/dL (6.4-8.2)
--- NOTE | 2019-09-06 09:41 | RAD ---
Chest, PA and Lateral: Technique: PA and lateral views of the chest were obtained. History: Shortness of breath. Comparison: 08/11/2019. Findings: The heart and pulmonary vasculature appear within normal limits. The lungs are clear. The pleural margins are clear. Impression: No acute chest process is seen. Electronically signed by: Martínez Red MD (09/06/2019 9:37 AM) [id number]
[2019-09-06] MEDS: methylPREDNISolone SOD SUCC PF 125 MG/2 ML VIAL. IV ONE (09:50)
[2019-09-06 09:51] VITALS: BP 101/60
[2019-09-06] MEDS ORDERED: PRED50TA PO (10:05)
--- NOTE | 2019-09-06 14:43 | EKG ---
[address] [address] Test Date: 2019-09-06 Test Time: 09:05:45 Pat Name: CEM ABARCA Department: Room: Gender: F Animal Cop: : 1945 Requested By: HERBERT ROCHA Order Number: [id number] Reading MD: Measurements Intervals [place] Rate: 89 P: 90 RI: 148 QRS: 87 QRSD: 76 T: 64 QT: 358 QTc: 437 Interpretive Statements SINUS RHYTHM QRS(T) CONTOUR ABNORMALITY CONSISTENT WITH ANTEROSEPTAL INFARCT PROBABLY OLD ABNORMAL ECG RI6.01 No previous ECG available for comparison
== END 2019-09-06 10:10 | disposition home or self-care (01) ==
LOC: ER 08:45
DX: J44.1 Chronic obstructive pulmonary disease with (acute) exacerbation (principal)
CPT/HCPCS: 36415; 71046; 80053; 84484; 85025; 93005; 94640; 96374; 99285; J2930

== ENCOUNTER 2019-09-24 09:17 | Inpatient (IN) | payer MEDICARE ==
[~2019-09-24] VITALS: Ht 162.6 cm; Wt 44.9 kg
--- NOTE | 2019-09-24 09:31 | PHYS DOC ---
Past History Past Medical History: COPD Past Surgical History: Tonsillectomy Smoking: Quit Greater Than 1 Year Alcohol Use: None Drug Use: None General Adult EDM: Chief Complaint: SHORTNESS OF BREATH HPI: HPI: 74-year-old female with significant history of COPD, who presents for evaluation of a nearly 1 week history of dyspnea. Associated with a mild nonproductive cough, though with baseline chronic cough. Also reports a fever as high as 100.4 at home. Recently completed a course of steroids. Home breathing treatment, most recently at 5 AM, with mild efficacy. No other aggravating or alleviating factors. No chest pain. Review of Systems: Review of Systems: General: No fevers, chills. Eyes: No blurred vision, diplopia. ENT: No nasal congestion, sore throat. CV: No chest pain, edema. Resp: Reports shortness of breath, cough. GI: No abdominal pain, nausea, vomiting. : No dysuria, hematuria. Neuro: No headache, dizziness, weakness. MSK: No myalgia, arthralgia, back pain. Skin: No acute rash, lesion. Heart Score: Risk Factors: Risk Factors: DM, Current or recent (<one month) smoker, HTN, HLP, family history of CAD, obesity. Risk Scores: Score 0 - 3: 2.5% MACE over next 6 weeks - Discharge Home Score 4 - 6: 20.3% MACE over next 6 weeks - Admit for Clinical Observation Score 7 - 10: 72.7% MACE over next 6 weeks - Early Invasive Strategies Allergies: Allergies: Allergies Coded Allergies Type Severity Reaction Last Updated Verified influenza virus vaccine ts [id number] (36 mos,up) Allergy Intermediate 10/04/18 Yes cyclobenzaprine Allergy Unknown 08/11/19 Yes Physical Exam: PE: Gen: NAD. Head: NC/AT Eyes: No scleral icterus. No conjunctival injection. ENT: MMM. Posterior OP clear. Neck: Supple. NT. CV: RRR. Peripheral pulses intact. Resp: Globally diminished. Abd: Soft. NT. ND. MSK: No peripheral cyanosis. No edema. No calf tenderness or asymmetry. Neuro: Awake and alert. Skin: Warm. Dry. Psych: Appropriate mood & affect. EKG: EKG: EKG is 0943. Sinus tachycardia. Heart rate 104. Normal intervals. Septal Q waves. No STEMI. Interpreted by me. Radiology/Procedures: Radiology/Procedures: AP chest. HISTORY: Short of air AP view was taken of the chest. There is hyperexpansion and changes of chronic obstructive pulmonary disease. A confluent pneumonia is not identified. There is no pleural effusion. There has been a mild increase in the interstitial markings in the lung bases compared to the prior study. IMPRESSION: 1. Mild basilar interstitial infiltrates or edema. 2. COPD. Electronically signed by: Jett Vivas MD (09/24/2019 9:58 AM) [id number] Course & Med Decision Making: Course & Med Decision Making In summary, 74-year-old female with history of COPD, non-oxygen dependent, who presents for evaluation of initially one-week history of URI symptoms and dyspnea. Globally diminished aeration. Mild tachypnea, though normal pulse oximetry. Chest x-ray with possible bibasilar infiltrates in the setting of sher kocytosis. There is neutrophilic predominance, though with some lymphopenia as well. No known exposure to positive coronavirus individuals. Received Solu- Medrol, DuoNeb, Rocephin and Zithromax. Will be admitted for further management. Dragon Disclaimer: Dragon Disclaimer: This electronic medical record was generated, in whole or in part, using a voice recognition dictation system. Departure Departure: Impression: Primary Impression: CAP (community acquired pneumonia) Qualified Codes: J18.9 - Pneumonia, unspecified organism Additional Impression: COPD exacerbation Disposition: ADMITTED INPATIENT Admitting Physician: Teressa Escobedo Condition: STABLE Referrals: TOM ROPER MD (PCP) LAURIE SAHU DO Sep 24, 2019 09:31
[2019-09-24 09:45] LABS: BASO # 0.1 x10^3/uL (0.0-0.2); BASO % 1 % (0-3); EOS # 0.1 x10^3/uL (0.0-0.7); EOS % 1 % (0-3); HEMOGLOBIN 13.7 g/dL (12.0-15.5); LYMPH # 0.5 x10^3/uL (1.0-4.8); LYMPH % 4 % (24-48); MEAN CORPUSCULAR HEMOGLOBIN 31 pg (25-35); MEAN CORPUSCULAR HGB CONC 34 g/dL (31-37); MEAN CORPUSCULAR VOLUME 93 fL (79-100); MONO # 1.4 x10^3/uL (0.0-1.1); MONO % 11 % (0-9); NEUT # 10.4 x10^3uL (1.8-7.7); NEUT % 83 % (31-73); PLATELET COUNT 226 x10^3/uL (140-400); RED BLOOD COUNT 4.43 x10^6/uL (3.50-5.40); RED CELL DISTRIBUTION WIDTH 13.2 % (11.5-14.5); WHITE BLOOD COUNT 12.5 x10^3/uL (4.0-11.0)
[2019-09-24 09:58] LABS: CALCIUM 8.9 mg/dL (8.5-10.1); CREATININE 0.8 mg/dL (0.6-1.0); GFR 70.1; POTASSIUM 4.2 mmol/L (3.5-5.1)
--- NOTE | 2019-09-24 10:01 | RAD ---
AP chest. HISTORY: Short of air AP view was taken of the chest. There is hyperexpansion and changes of chronic obstructive pulmonary disease. A confluent pneumonia is not identified. There is no pleural effusion. There has been a mild increase in the interstitial markings in the lung bases compared to the prior study. IMPRESSION: 1. Mild basilar interstitial infiltrates or edema. 2. COPD. Electronically signed by: Jett Vivas MD (09/24/2019 9:58 AM) [id number]
[2019-09-24 10:08] LABS: ALBUMIN 3.6 g/dL (3.4-5.0); ALBUMIN/GLOBULIN RATIO 1.1 (1.0-1.7); MAGNESIUM 2.2 mg/dL (1.8-2.4); TOTAL BILIRUBIN 0.8 mg/dL (0.2-1.0); TOTAL PROTEIN 6.8 g/dL (6.4-8.2)
--- NOTE | 2019-09-24 10:10 | EKG ---
[address] [address] Test Date: 2019-09-24 Test Time: 09:43:35 Pat Name: CEM ABARCA Department: Room: Gender: F Tool Crib Lead: : 1945 Requested By: LAURIE SAHU Order Number: [id number] Reading MD: Jamarcus Mcclellan Measurements Intervals [place] Rate: 104 P: 90 ND: 150 QRS: 88 QRSD: 70 T: 64 QT: 326 QTc: 435 Interpretive Statements SINUS TACHYCARDIA NONSPECIFIC ST-T WAVE CHANGES. POSSIBLE OLD ANTEROSEPTAL INFARCT Electronically Signed On 09-24-2019 11:28:02 CDT by Jamarcus Mcclellan
[2019-09-24] MEDS ORDERED: IPRATRPIUM/ALBUTEROL 0.5/2.5MG 3 ML NEBU. NEB ONE (10:15)
[2019-09-24] MEDS ORDERED: methylPREDNISolone SOD SUCC PF 125 MG/2 ML VIAL. IV ONE (10:15)
[2019-09-24] MEDS ORDERED: ONDANSETRON PF 4 MG/2 ML VIAL. IVP PRN (10:45)
[2019-09-24] MEDS ORDERED: IV NORMAL SALINE 250ML 250 ML ONE (10:53)
[2019-09-24] MEDS ORDERED: AZITHROMYCIN 500 MG VIAL. IV ONE (10:53)
[2019-09-24] MEDS ORDERED: AZITHROMYCIN 500 MG in IV NORMAL SALINE 250ML 250 ML IV ONE (11:30)
[2019-09-24] MEDS ORDERED: IV NORMAL SALINE 50ML 50 ML ONE (12:20)
[2019-09-24] MEDS ORDERED: cefTRIAXone SODIUM 1 GM VIAL ONE ×2 (12:20→12:25)
[2019-09-24 13:29] VITALS: BP 99/65
[2019-09-24] MEDS ORDERED: IPRA3AMP29 NEB (14:57)
[2019-09-24] MEDS: IPRATRPIUM/ALBUTEROL 0.5/2.5MG 3 ML NEBU. NEB SCH ×2 (16:00→20:14)
--- NOTE | 2019-09-24 16:37 | HP ---
ADMIT DATE: 09/24/2019 HISTORY OF PRESENT ILLNESS: The patient is a 74-year-old female patient who came to the Emergency Room complaining of shortness of breath that started about a week ago associated with mild nonproductive cough with baseline chronic cough. She reported fever up to 100.4 at home, recently completed a course of steroids and she denied any chest pain. Denied any dizziness or lightheadedness. She has been taking her breathing treatments more often. She was extensively evaluated in the Emergency Room and has had an EKG, which showed that she was in sinus tachycardia with a heart rate of 104, no STEMI. Chest x-ray showed the patient has mild basilar interstitial infiltrate or edema and obviously lung hyperinflation. Her white cell count slightly elevated at 12,500; however, she just completed her steroid treatment last Monday. Her chemistry showed has mild hyponatremia, but otherwise all other labs that are unremarkable and the patient was admitted with community-acquired pneumonia and COPD exacerbation. PAST MEDICAL HISTORY: Significant for chronic obstructive pulmonary disease and generalized osteoarthritis. She does have pulmonary nodules. She was scheduled to have PET scan and followup appointment with Dr. Carrillo on September 10, but she canceled the appointment. PAST SURGICAL HISTORY: Significant for tonsillectomy, breast biopsy, tubal ligation, esophagogastroduodenoscopy and colonoscopy. ALLERGIES: SHE IS ALLERGIC TO FLU SHOTS. FAMILY HISTORY: She has 4 brothers and 5 sisters. One brother of thyroid cancer at the age of 60. Her father at age of 93 and mother at age of 98. SOCIAL HISTORY: She is . She has 1 daughter and 1 son. She quit smoking about a year ago. She smoked at least 10 cigarettes a day for almost 50 years. She does not drink alcohol. 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 She worked at [employer] for 10 years and also worked with friend's and she is currently retired. MEDICATIONS: She is currently on following medications: She is normally at home, she is on DuoNeb 0.5-2.5 mg/3 mL by nebulizer 4 times a day, (tiotropium bromide/olodaterol) Stiolto Respimat inhaler 2 puffs once a day, and albuterol sulfate 2.5 mg by nebulizer every 6 hours as needed. PHYSICAL EXAMINATION: GENERAL: On arrival to the Emergency Room, the patient was somewhat pale, cachectic, but no jaundice, cyanosis or thyromegaly. No jugular venous distention. No limb edema. VITAL SIGNS: Her heart rate was 108, blood pressure was 125/86, temperature was 98.5, respiratory rate 28, and oxygen saturation was 99% on room air. HEAD, EYES, EARS, NOSE AND THROAT: Showed normocephalic and atraumatic. NECK: Supple. HEART: Showed normal first and second heart sounds. No gallop, rub or murmur. CHEST: Shows central trachea, equally reduced expansion, reduced air entry, vesicular breath sounds. I could not appreciate any crepitation or rhonchi. ABDOMEN: Scaphoid, soft, nontender. NEUROLOGIC: She is grossly intact. She clearly has marked muscle wasting and cachectic. Her body mass index only 17.2 kg square meter. LABORATORY DATA: Her lab work on arrival showed a white cell count 12,500; hemoglobin 13.7; hematocrit 41; MCV 93; and platelet count 226,000 with normal differential. Serum sodium was 132, potassium 4.2, chloride 97, bicarbonate 24, anion gap of 11, BUN 9, creatinine was 0.8, and estimated GFR was 70 mL per minute. Her glucose was 93, calcium was 8.9, magnesium was 2.2. Total bilirubin, AST, ALT, alkaline phosphatase were normal. Total protein was 6.8, albumin was 3.6. Her chest x-ray showed that there is hyperexpansion and changes of chronic obstructive pulmonary disease, a confluent pneumonia is not identified. There is no pleural effusion. There has been a mild increase in the interstitial marking the lung bases compared to prior exam. ASSESSMENT AND PLAN: The patient was admitted with community-acquired pneumonia and chronic obstructive pulmonary disease exacerbation. We will continue with IV steroids, continue with ceftriaxone and Zithromax as well as her DuoNeb and monitor her progress on a daily basis. PEPE DUBOIS MD DR: ANGIE/kinjal JOB#: [id number] / [id number]
[2019-09-24] MEDS ORDERED: ALBUTEROL SULFATE 2.5 MG/3 ML NEBU. NEB PRN (19:00)
[2019-09-24 19:48] VITALS: BP 102/67
[2019-09-24] MEDS: methylPREDNISolone SOD SUCC PF 40 MG/ML VIAL. IV SCH (20:58)
[2019-09-24] MEDS: LACTOBACILLUS RHAMNOSUS GG 1 CAPSULE. PO SCH (20:58)
[2019-09-24 23:12] VITALS: BP 94/61
[2019-09-25] MEDS: methylPREDNISolone SOD SUCC PF 40 MG/ML VIAL. IV SCH ×3 (05:20→21:22)
[2019-09-25] MEDS: IPRATRPIUM/ALBUTEROL 0.5/2.5MG 3 ML NEBU. NEB SCH ×2 (05:24→11:15)
[2019-09-25 05:33] VITALS: BP 95/55
[2019-09-25] MEDS: LACTOBACILLUS RHAMNOSUS GG 1 CAPSULE. PO SCH ×2 (08:01→21:22)
[2019-09-25] MEDS: AZITHROMYCIN 250 MG TABLET. PO SCH (08:01)
--- NOTE | 2019-09-25 14:33 | PN ---
DATE: 09/25/2019 ATTENDING PHYSICIAN: Dr. Escobedo. SUBJECTIVE: Shortness of breath, coughing less ____ still very weak. I reviewed her chest x-ray. The lung sanderson are fairly clear. She has some chronic changes at the bases. I do not believe these are infectious in nature. OBJECTIVE FINDINGS: VITAL SIGNS: Today showed a blood pressure of 195/55, pulse is 85 and regular. She is afebrile. HEENT: Head is without trauma. Pupils are reactive. Sclerae nonicteric. Oropharynx clear. NECK: Supple. LUNGS: Diffuse wheezing bilaterally. CARDIOVASCULAR: Showed regular heart tones. No gallops. Peripheral pulses palpable and full. ABDOMEN: Soft, scaphoid, nontender. EXTREMITIES: Showed muscle wasting. No edema. NEUROLOGIC: Focally intact. LABORATORY STUDIES: As noted. ASSESSMENT: 1. A 74-year-old female with acute on chronic respiratory failure. 2. Exacerbation of chronic obstructive pulmonary disease. 3. Probable bronchitis. 4. Protein-calorie malnutrition, moderate. PLAN: 1. Continue antibiotics. 2. Continue nebulizers. 3. Encourage oral intake. 4. COVID-19 swab. This was not done on admission. 5. Probable discharge tomorrow. ROBIN MULTANI MD DR: CARI/kinjal JOB#: [id number] / [id number]
[2019-09-25 14:58] VITALS: BP 114/55
[2019-09-25] MEDS: IPRATROPIUM/ALBUTEROL 20/100mcg/INH INHALER. INH SCH ×2 (16:00→21:22)
[2019-09-25] MEDS ORDERED: BENZOCAINE/MENTHOL LOZNGE 18'S BOX. PO PRN (18:00)
[2019-09-25] MEDS ORDERED: ACETAMINOPHEN 325 MG TABLET PO PRN (18:00)
[2019-09-25 20:09] VITALS: BP 102/58
[2019-09-25 22:57] VITALS: BP 127/66
[2019-09-26] MEDS: IPRATROPIUM/ALBUTEROL 20/100mcg/INH INHALER. INH SCH (04:53)
[2019-09-26 04:54] VITALS: BP 108/63
[2019-09-26] MEDS: methylPREDNISolone SOD SUCC PF 40 MG/ML VIAL. IV SCH (04:54)
[2019-09-26] MEDS: LACTOBACILLUS RHAMNOSUS GG 1 CAPSULE. PO SCH (08:19)
[2019-09-26] MEDS: AZITHROMYCIN 250 MG TABLET. PO SCH (08:20)
--- NOTE | 2019-09-26 10:23 | DS ---
DATE OF DISCHARGE: 09/25/2019 ATTENDING PHYSICIAN: Dr. Escobedo. FINAL DISCHARGE DIAGNOSES: 1. Acute on chronic respiratory failure. 2. Advanced chronic obstructive pulmonary disease with exacerbation. 3. Bronchitis. 4. Pneumonia ruled out. 5. Protein-calorie malnutrition, moderate. HISTORY AND PHYSICAL: This is a 74-year-old female, heavy smoker, admitted through the ED with shortness of breath, cough and congestion. Chest x-ray was equivocal. I did review her x-ray. She probably has bronchitis. I do not see any acute infiltrates. There probably are some interstitial changes at the bases. PHYSICAL EXAMINATION: Please see the dictated note. PERTINENT LABORATORY AND X-RAY STUDIES: The initial chest x-ray showed mild basilar interstitial infiltrates or edema and COPD changes with hyperexpansion, most likely clinically these were not infiltrate. Her hemoglobin is 13.7 g/dL with a white count of 12,000. Chemistry panel showed sodium of 132, potassium 4.2 mEq, creatinine 0.8. Cardiac enzymes negative. BNP 275. COURSE IN THE HOSPITAL: The patient was admitted. She had a COVID-19 coronavirus swab pending. She did better with antibiotics and steroids. On the third hospital day, she was ready for discharge. I recommended cephalexin 500 mg p.o. t.i.d. for 7 more days, Zithromax 250 daily for 6 more days and prednisone 40 mg daily for 7 days and then stop. She will follow up with her regular provider as scheduled. She was discharged then from our hospital in stable condition with explicit instructions for followup care. Her other home meds includes albuterol, ipratropium in the form of DuoNeb and the combination Stiolto Respimat to spray daily. Strong encouragement to avoid further cigarette use. She was discharged from our hospital in stable condition with explicit instructions for followup care. TOTAL DISCHARGE TIME SPENT: 39 minutes. ROBIN MULTANI MD DR: CARI/kinjal JOB#: [id number] / [id number] PEPE Thorpe MD
== END 2019-09-26 11:15 | disposition home health service (06) | DRG 871 ==
LOC: ER 09:17 → 1 SOUTH 10:35
PROVIDERS: ADMIT Internal Medicine; ATTEND Internal Medicine
DX: A41.9 Sepsis, unspecified organism (principal); J96.20 Acute and chronic respiratory failure, unspecified whether with hypoxia or hypercapnia; J18.9 Pneumonia, unspecified organism; J44.1 Chronic obstructive pulmonary disease with (acute) exacerbation; E44.0 Moderate protein-calorie malnutrition; E87.1 Hypo-osmolality and hyponatremia; Z68.1 Body mass index [BMI] 19.9 or less, adult; J44.0 Chronic obstructive pulmonary disease with (acute) lower respiratory infection; J20.9 Acute bronchitis, unspecified; F17.210 Nicotine dependence, cigarettes, uncomplicated; M15.9 Polyosteoarthritis, unspecified; Z80.8 Family history of malignant neoplasm of other organs or systems; Z90.49 Acquired absence of other specified parts of digestive tract; Z79.899 Other long term (current) drug therapy; Z88.8 Allergy status to other drugs, medicaments and biological substances; Z88.7 Allergy status to serum and vaccine; Z20.828 Contact with and (suspected) exposure to other viral communicable diseases
CPT/HCPCS: 36415; 71045; 80053; 83735; 83880; 84484; 85025; 87040; 87635; 93005; 94640; 96365; 96368; 96375; J0456; J0696; J2920; J2930; J7050; 99285-25

== ENCOUNTER 2019-10-13 18:01 | Emergency (ER) | payer MEDICARE ==
[~2019-10-13] VITALS: Ht 162.6 cm; Wt 44.9 kg
[2019-10-13] MEDS ORDERED: NYST1000 PO (18:42)
--- NOTE | 2019-10-13 18:42 | PHYS DOC ---
Past History Past Medical History: COPD Past Surgical History: Tonsillectomy Smoking: Quit Greater Than 1 Year Alcohol Use: None Drug Use: None General Adult EDM: Chief Complaint: SHORTNESS OF BREATH HPI: HPI: 74-year-old female with past medical history of COPD presents with report of sudden shortness of air/sensation she is unable to catch her breath. Reports used her metered-dose inhaler with some improvement. Patient was recently admitted to [facility] for COPD exacerbation and released 2 weeks ago. Patient had been taking steroids as well as empiric antibiotics. Chest x-ray at that time appeared more consistent with COPD/bronchitis. Patient reports sensation that when she stopped her steroids it seems that her breathing starts to "act up again ". Denies fever or chills. Patient also reports she was tested a few weeks ago upon admission for COVID19 which was reportedly negative. Denies trauma. Denies leg swelling or calf tenderness. Denies pleuritic pain. Denies chest pain. Denies known sick contacts. She does report noting some white spots and irritation in her mouth which was concerning for possible thrush. Review of Systems: Review of Systems: Constitutional: Denies fever or chills Eyes: Denies redness or eye pain HENT: Denies nasal congestion or sore throat, reports redness/irritation to mouth with white spots concerning for thrush Respiratory: Reports slight cough and shortness of breath Cardiovascular: Denies chest pain, pleuritic pain, or palpitations GI: Denies abdominal pain, nausea, or vomiting : Denies dysuria or hematuria Musculoskeletal: Denies back pain or joint pain Integument: Denies rash or skin lesions Neurologic: Denies headache, focal weakness or sensory changes Complete systems were reviewed and found to be within normal limits, except as documented in this note. Allergies: Allergies: Allergies Coded Allergies Type Severity Reaction Last Updated Verified influenza virus vaccine ts [id number] (36 mos,up) Allergy Intermediate 10/04/18 Yes cyclobenzaprine Allergy Unknown 08/11/19 Yes Physical Exam: PE: Constitutional: Well developed, well nourished, appears anxious, non-toxic appearance HENT: Normocephalic, atraumatic, oropharynx moist, pharynx erythematous, upper denture in place Eyes: Conjunctiva normal, no discharge Neck: Normal range of motion, no tenderness, supple Cardiovascular: Heart rate normal, regular rhythm Lungs & Thorax: Bilateral breath sounds clear to auscultation, no wheezing, taking intermittent "large breathes", no respiratory distress Abdomen: Soft, no tenderness Skin: Warm, dry, no erythema, no rash Extremities: No calves tenderness, ROM intact, no edema Neurologic: Alert and oriented X 3, normal motor function, normal sensory function, no focal deficits noted Psychologic: Affect anxious, judgment normal Current Patient Data: Vital Signs: Vital Signs Date Time Temp Pulse Resp B/P (MAP) Pulse Ox O2 Delivery O2 Flow Rate FiO2 10/13/19 18:13 98.2 109 24 150/61 (90) 97 Room Air EKG: EKG: [] Radiology/Procedures: Radiology/Procedures: PROCEDURE: CHEST PA & LATERAL EXAM: PA and Lateral Views of the Chest DATE: 10/13/2019 6:28 PM INDICATION: Shortness of air COMPARISON: 09/24/2019 FINDINGS: The heart is not enlarged. Mediastinal and hilar contours are normal. No focal parenchymal airspace opacity. No pleural effusion or pneumothorax. IMPRESSION: 1. No radiographic evidence for acute cardiopulmonary process. Electronically signed by: Ruddy Lebron MD (10/13/2019 6:52 PM) [facility] Course & Med Decision Making: Course & Med Decision Making Pertinent Imaging studies reviewed. (See chart for details) Patient with past nuchal history of COPD who was recently admitted to the hospital for exacerbation presents with report of sudden shortness of air. Denies pleuritic pain or chest pain.. No calf tenderness noted. Sats stable on room air. Patient does appear anxious. Chest x-ray without acute process. HPI with concern that patient might have thrush and may be contributing factor. Anxiety also likely contributing factor. Patient stable for discharge with outpatient follow-up with PCP/braille typist. Discussed findings and plan with patient, who acknowledges understanding and agreement. Dragon Disclaimer: Dragon Disclaimer: This electronic medical record was generated, in whole or in part, using a voice recognition dictation system. Departure Departure: Impression: Primary Impression: Shortness of breath Additional Impression: Thrush Disposition: 01 HOME, SELF-CARE Condition: STABLE Referrals: TOM ROPER MD (PCP) Patient Instructions: Anxiety and Panic Attacks, [place]-ms-Mueb, Chronic Obstructive Pulmonary Disease, Hzib-xy-Ntmb, Shortness of Breath, Odlj-zw-Ugtf, Thrush, Adult, Gzim-ug-Foeu Additional Instructions: Call and follow with Dr. Carrillo (pulmonology) Scripts Nystatin (NYSTATIN) 100,000 Unit/1 Ml Oral.susp 10 ML PO QID for Thrush for 7 Days, #200 ML Swish and swallow Prov: LANDY DONALDSON DO 20 LANDY DONALDSON DO October 13, 2019 18:42
[2019-10-13 18:48] VITALS: BP 102/52
--- NOTE | 2019-10-13 18:54 | RAD ---
EXAM: PA and Lateral Views of the Chest DATE: 10/13/2019 6:28 PM INDICATION: Shortness of air COMPARISON: 09/24/2019 FINDINGS: The heart is not enlarged. Mediastinal and hilar contours are normal. No focal parenchymal airspace opacity. No pleural effusion or pneumothorax. IMPRESSION: 1. No radiographic evidence for acute cardiopulmonary process. Electronically signed by: Ruddy Lebron MD (10/13/2019 6:52 PM) JAY
== END 2019-10-13 18:49 | disposition home or self-care (01) ==
LOC: ER 18:01
DX: R06.02 Shortness of breath (principal); B37.0 Candidal stomatitis; J44.9 Chronic obstructive pulmonary disease, unspecified; Z87.891 Personal history of nicotine dependence; Z88.7 Allergy status to serum and vaccine; Z88.8 Allergy status to other drugs, medicaments and biological substances
CPT/HCPCS: 71046; 99283

== ENCOUNTER 2020-01-21 14:52 | Emergency (ER) | payer MEDICARE ==
[~2020-01-21] VITALS: Ht 162.6 cm; Wt 44.9 kg
[~2020-01-21 14:52] MED LIST changes: +NYST1000 PO
--- NOTE | 2020-01-21 15:14 | PHYS DOC ---
Past History Past Medical History: COPD Past Surgical History: Tonsillectomy Smoking: Quit Greater Than 1 Year Alcohol Use: None Drug Use: None General Adult EDM: Chief Complaint: SHORTNESS OF BREATH HPI: HPI: Patient is a 74 year old female who presents for evaluation of moderate to significant shortness of air. She was hyperventilating on arrival. She states her chronic shortness of air became severely worse in the past few hours. Patient sees a top tile decorator on a regular basis, Dr. Carrillo. Patient is very anxious. Patient has a chronic cough as well. Shortly after arrival she was much more calm and breathing easier. Patient refused an EKG on arrival. She states that she is been worked up many times for shortness of air and wants to hold some of the work-up. Furthermore she also does not want a nebulizer treatment yet because she just took one before arrival. Patient was highly anxious on arrival. Patient is well-known to this department and the staff Review of Systems: Review of Systems: Constitutional: Denies fever or chills Eyes: Denies change in visual acuity HENT: Denies nasal congestion or sore throat Respiratory: has cough and shortness of breath Cardiovascular: mild chest pain no edema GI: Denies abdominal pain, nausea, vomiting, bloody stools or diarrhea : Denies dysuria Musculoskeletal: Denies back pain or joint pain Integument: Denies rash Neurologic: Denies headache, focal weakness or sensory changes Endocrine: Denies polyuria or polydipsia Lymphatic: Denies swollen glands Psychiatric: Denies depression, has anxiety Heart Score: Risk Factors: Risk Factors: DM, Current or recent (<one month) smoker, HTN, HLP, family history of CAD, obesity. Risk Scores: Score 0 - 3: 2.5% MACE over next 6 weeks - Discharge Home Score 4 - 6: 20.3% MACE over next 6 weeks - Admit for Clinical Observation Score 7 - 10: 72.7% MACE over next 6 weeks - Early Invasive Strategies Current Medications: Current Meds: Current Medications Medications (Trade) Dose Ordered Sig/Amanda Start Time Stop Time Status Last Admin Dose Admin Methylprednisolone Sodium Succinate (SOLU-Medrol 125MG VIAL) 125 mg 1X ONCE 01/21/20 15:15 01/21/20 15:16 Allergies: Allergies: Allergies Coded Allergies Type Severity Reaction Last Updated Verified influenza virus vaccine ts [id number] (36 mos,up) Allergy Intermediate 10/04/18 Yes cyclobenzaprine Allergy Unknown 08/11/19 Yes Physical Exam: PE: Constitutional: Well developed, well nourished, mild to moderate acute distress, non-toxic appearance. [] HENT: Normocephalic, atraumatic, bilateral external ears normal, oropharynx moist, no oral exudates, nose normal. [] Eyes: PERRL, EOMI, conjunctiva normal, no discharge. [] Neck: Normal range of motion, no tenderness, supple, no stridor. [] Cardiovascular:Heart rate tachy but regular rhythm, no murmur [] Lungs & Thorax: Bilateral breath sounds diminished, tachypnnea and mild conversational dyspnea on arrival [] Abdomen: Bowel sounds normal, soft, no tenderness, no masses, no pulsatile masses. [] Skin: Warm, dry, no erythema, no rash. [] Back: No tenderness. [] Extremities: No tenderness, no cyanosis, some clubbing, ROM intact, no edema. [] Neurologic: Alert and oriented X 3, normal motor function, normal sensory function, no focal deficits noted. [] Psychologic: Affect normal, judgement normal, mood abnormal. [] Current Patient Data: Labs: Laboratory Tests Test 01/21/20 15:10 White Blood Count 7.3 x10^3/uL Red Blood Count 4.49 x10^6/uL Hemoglobin 14.2 g/dL Hematocrit 42.2 % Mean Corpuscular Volume 94 fL Mean Corpuscular Hemoglobin 32 pg Mean Corpuscular Hemoglobin Concent 34 g/dL Red Cell Distribution Width 14.2 % Platelet Count 188 x10^3/uL Neutrophils (%) (Auto) 69 % Lymphocytes (%) (Auto) 19 % Monocytes (%) (Auto) 10 % Eosinophils (%) (Auto) 2 % Basophils (%) (Auto) 1 % Neutrophils # (Auto) 5.1 x10^3uL Lymphocytes # (Auto) 1.4 x10^3/uL Monocytes # (Auto) 0.7 x10^3/uL Eosinophils # (Auto) 0.1 x10^3/uL Basophils # (Auto) 0.1 x10^3/uL Sodium Level 141 mmol/L Potassium Level 4.0 mmol/L Chloride Level 105 mmol/L Carbon Dioxide Level 28 mmol/L Anion Gap 8 Blood Urea Nitrogen 9 mg/dL Creatinine 0.9 mg/dL Estimated GFR (Cockcroft-Gault) 61.2 BUN/Creatinine Ratio 10 Glucose Level 100 mg/dL Calcium Level 8.6 mg/dL Total Bilirubin 0.4 mg/dL Aspartate Amino Transf (AST/SGOT) 27 U/L Alanine Aminotransferase (ALT/SGPT) 22 U/L Alkaline Phosphatase 97 U/L Troponin I Quantitative < 0.017 ng/mL Total Protein 6.5 g/dL Albumin 3.8 g/dL Albumin/Globulin Ratio 1.4 Current Medications Medications (Trade) Dose Ordered Sig/Amanda Route PRN Reason Start Time Stop Time Status Last Admin Dose Admin Methylprednisolone Sodium Succinate (SOLU-Medrol 125MG VIAL) 125 mg 1X ONCE IV 01/21/20 15:15 01/21/20 15:16 DC 01/21/20 15:18 EKG: EKG: pt refused[] Radiology/Procedures: Radiology/Procedures: [place] [address] IMAGING REPORT Signed PATIENT: CEM ABARCA ACCOUNT: [id number] : 1945 LOCATION: ER AGE: 74 SEX: F EXAM STATUS: REG ER ORD. PHYSICIAN: CHRISTIAN DONALDSON DO REASON: short of air PROCEDURE: CHEST AP ONLY CHEST AP ONLY History: Reason: short of air / Spl. Instructions: / History: Comparison: October 13, 2019 Findings: Hyperinflation with emphysematous changes. Left basilar pleural thickening. No consolidation. No pneumothorax. Normal heart size. Impression: 1. Hyperinflation with emphysematous changes. Electronically signed by: Deshawn Velasquez DO (01/21/2020 3:29 PM) [id number] DICTATED AND SIGNED BY: DESHAWN VELASQUEZ DO DATE: 01/21/20 1529 CC: TOM ROPER MD; CHRISTIAN DONALDSON DO ~ [] Course & Med Decision Making: Course & Med Decision Making Pertinent Labs and Imaging studies reviewed. (See chart for details) [] Dragon Disclaimer: Dragon Disclaimer: This electronic medical record was generated, in whole or in part, using a voice recognition dictation system. 1545 stable, feeling better at this time but needs more time before final disposition decision. She is still tachypneic but much improved since arrival. She was offered breathing treatment wants to wait for now. She took a home neb treatment at both noon and 2 PM today 1725 stable, breathing much easier at this time. Patient no longer has conversational dyspnea. We discussed options and patient wishes to be discharged. Prescription for prednisone taper given. She did not need refill on her breathing medications. There is no evidence of a cardiac event, pneumonia, pneumothorax etc. Departure Departure: Impression: Primary Impression: COPD with acute exacerbation Disposition: HOME/RESIDENCE PRIOR TO ADM Condition: STABLE Referrals: TOM ROPER MD (PCP) Patient Instructions: Chronic Obstructive Pulmonary Disease Exacerbation Additional Instructions: Take prednisone as directed, you should read the medication as directed, return if worsen. Call and see your family doctor or top tile decorator right away and follow-up Scripts Methylprednisolone (MEDROL) 4 Mg Tab.ds.pk 1 PKG PO UD for wheezing, #1 PKG Prov: CHRISTIAN DONALDSON DO 01/21/20 Prednisone (PREDNISONE) 50 Mg Tablet 1 TAB PO DAILY for COPD exac, #4 TAB You received this medication in the emergency room today. You will starting your next dose tomorrow. Prov: CHRISTIAN DONALDSON DO 01/21/20 Justification of Admission: Justification of Admission: Justification of Admission Dx: N/A CHRISTIAN DONALDSON DO Jan 21, 2020 15:14
[2020-01-21] MEDS ORDERED: methylPREDNISolone SOD SUCC PF 125 MG/2 ML VIAL. IV ONE (15:15)
[2020-01-21 15:24] LABS: BASO # 0.1 x10^3/uL (0.0-0.2); BASO % 1 % (0-3); EOS # 0.1 x10^3/uL (0.0-0.7); EOS % 2 % (0-3); HEMATOCRIT 42.2 % (36.0-47.0); HEMOGLOBIN 14.2 g/dL (12.0-15.5); LYMPH # 1.4 x10^3/uL (1.0-4.8); LYMPH % 19 % (24-48); MEAN CORPUSCULAR HEMOGLOBIN 32 pg (25-35); MEAN CORPUSCULAR HGB CONC 34 g/dL (31-37); MEAN CORPUSCULAR VOLUME 94 fL (79-100); MONO # 0.7 x10^3/uL (0.0-1.1); MONO % 10 % (0-9); NEUT # 5.1 x10^3uL (1.8-7.7); NEUT % 69 % (31-73); PLATELET COUNT 188 x10^3/uL (140-400); RED BLOOD COUNT 4.49 x10^6/uL (3.50-5.40); RED CELL DISTRIBUTION WIDTH 14.2 % (11.5-14.5); WHITE BLOOD COUNT 7.3 x10^3/uL (4.0-11.0)
--- NOTE | 2020-01-21 15:31 | RAD ---
CHEST AP ONLY History: Reason: short of air / Spl. Instructions: / History: Comparison: October 13, 2019 Findings: Hyperinflation with emphysematous changes. Left basilar pleural thickening. No consolidation. No pneumothorax. Normal heart size. Impression: 1. Hyperinflation with emphysematous changes. Electronically signed by: Deshawn Velasquez DO (01/21/2020 3:29 PM) [id number]
[2020-01-21 15:33] LABS: CALCIUM 8.6 mg/dL (8.5-10.1); CREATININE 0.9 mg/dL (0.6-1.0); GFR 61.2
[2020-01-21 15:39] LABS: ALBUMIN 3.8 g/dL (3.4-5.0); ALBUMIN/GLOBULIN RATIO 1.4 (1.0-1.7); TOTAL BILIRUBIN 0.4 mg/dL (0.2-1.0); TOTAL PROTEIN 6.5 g/dL (6.4-8.2)
[2020-01-21] MEDS ORDERED: IPRATRPIUM/ALBUTEROL 0.5/2.5MG 3 ML NEBU. NEB ONE (16:30)
[2020-01-21] MEDS ORDERED: PRED50TA PO (17:27)
[2020-01-21] MEDS ORDERED: METH4TAB2 PO (17:42)
[2020-01-27] MEDS ORDERED: POTA20TA4 PO (12:24)
[2020-01-27] MEDS ORDERED: PRED20TA PO (12:24)
== END 2020-01-21 17:35 | disposition home or self-care (01) ==
LOC: ER 14:52
DX: J44.1 Chronic obstructive pulmonary disease with (acute) exacerbation (principal); Z87.891 Personal history of nicotine dependence; Z88.7 Allergy status to serum and vaccine; Z88.8 Allergy status to other drugs, medicaments and biological substances
CPT/HCPCS: 36415; 71045; 80053; 84484; 85025; 94640; 96374; 99284; J2930

== ENCOUNTER 2020-01-25 09:45 | Inpatient (IN) | payer MEDICARE ==
[~2020-01-25] VITALS: Ht 162.6 cm; Wt 44.9 kg
[2020-01-25] MEDS ORDERED: IV NORMAL SALINE 1,000ML 1,000 ML IV ONE (10:15)
[2020-01-25] MEDS: DEXAMETHASONE SOD PHOS 4 MG/ML VIAL. IVP ONE (10:15)
[2020-01-25 10:18] LABS: BASO % 0 % (0-3); EOS # 0.1 x10^3/uL (0.0-0.7); EOS % 1 % (0-3); HEMATOCRIT 41.6 % (36.0-47.0); LYMPH # 1.8 x10^3/uL (1.0-4.8); LYMPH % 19 % (24-48); MEAN CORPUSCULAR HEMOGLOBIN 32 pg (25-35); MEAN CORPUSCULAR HGB CONC 34 g/dL (31-37); MEAN CORPUSCULAR VOLUME 94 fL (79-100); MONO # 1.2 x10^3/uL (0.0-1.1); MONO % 13 % (0-9); NEUT # 6.3 x10^3uL (1.8-7.7); NEUT % 67 % (31-73); PLATELET COUNT 237 x10^3/uL (140-400); RED BLOOD COUNT 4.44 x10^6/uL (3.50-5.40); RED CELL DISTRIBUTION WIDTH 13.6 % (11.5-14.5); WHITE BLOOD COUNT 9.5 x10^3/uL (4.0-11.0)
--- NOTE | 2020-01-25 10:31 | PHYS DOC ---
Past History Past Medical History: Anxiety, COPD Past Surgical History: Tonsillectomy Smoking: Quit Greater Than 1 Year Alcohol Use: None Drug Use: None General Adult EDM: Chief Complaint: MULTIPLE COMPLAINTS HPI: HPI: 74-year-old female with past medical history of COPD presents with 1 week history of dyspnea with associated productive cough. Patient reports was seen in the emergency department here at [facility] on 01/21/2020. [facility] reviewed notes patient received lab work and chest x-ray and was diagnosed with COPD exacerbation. Patient was prescribed empiric steroids. Patient reports she took the last dose of 50 mg of prednisone today and reports continued malaise and shortness of air. Denies trauma. Denies fever or chills. Denies leg swelling or calf tenderness. Denies known exposure to COVID-19. Review of Systems: Review of Systems: Constitutional: Denies fever or chills Eyes: Denies redness or eye pain HENT: Denies nasal congestion or sore throat Respiratory: Reports cough and shortness of breath Cardiovascular: Denies chest pain or palpitations GI: Denies abdominal pain, nausea, or vomiting : Denies dysuria or hematuria Musculoskeletal: Denies back pain or joint pain Integument: Denies rash or skin lesions Neurologic: Denies headache, focal weakness or sensory changes Complete systems were reviewed and found to be within normal limits, except as documented in this note. Heart Score: HEART Score for Chest Pain: HEART Score for Chest Pain Response (Comments) Value History Moderately Suspicious 1 ECG Normal 0 Age > 65 2 Risk Factors 1 or 2 Risk Factors 1 Troponin < Normal Limit 0 Total 4 Risk Factors: Risk Factors: DM, Current or recent (<one month) smoker, HTN, HLP, family history of CAD, obesity. Risk Scores: Score 0 - 3: 2.5% MACE over next 6 weeks - Discharge Home Score 4 - 6: 20.3% MACE over next 6 weeks - Admit for Clinical Observation Score 7 - 10: 72.7% MACE over next 6 weeks - Early Invasive Strategies Current Medications: Current Meds: Current Medications Medications (Trade) Dose Ordered Sig/Amanda Start Time Stop Time Status Last Admin Dose Admin Dexamethasone Sodium Phosphate (Decadron) 10 mg 1X ONCE 01/25/20 10:15 01/25/20 10:16 DC Sodium Chloride 1,000 ml @ 1,000 mls/hr 1X ONCE 01/25/20 10:15 01/25/20 11:14 01/25/20 10:15 1,000 MLS/HR Allergies: Allergies: Allergies Coded Allergies Type Severity Reaction Last Updated Verified influenza virus vaccine ts [id number] (36 mos,up) Allergy Intermediate 10/04/18 Yes cyclobenzaprine Allergy Unknown 08/11/19 Yes Physical Exam: PE: Constitutional: Well developed, well nourished, anxious, non-toxic appearance HENT: Normocephalic, atraumatic Eyes: Conjunctiva normal, no discharge Neck: Normal range of motion, supple Lungs & Thorax: No respiratory distress, equal chest rise and fall Abdomen: Soft, no tenderness Skin: Warm, dry, no erythema, no rash Extremities: No tenderness, ROM intact, no edema Neurologic: Alert and oriented X 3, no focal deficits noted Psychologic: Affect anxious, judgment normal Current Patient Data: Labs: Laboratory Tests Test 01/25/20 09:55 White Blood Count 9.5 x10^3/uL (4.0-11.0) Red Blood Count 4.44 x10^6/uL (3.50-5.40) Hemoglobin 14.0 g/dL (12.0-15.5) Hematocrit 41.6 % (36.0-47.0) Mean Corpuscular Volume 94 fL (79-100) Mean Corpuscular Hemoglobin 32 pg (25-35) Mean Corpuscular Hemoglobin Concent 34 g/dL (31-37) Red Cell Distribution Width 13.6 % (11.5-14.5) Platelet Count 237 x10^3/uL (140-400) Neutrophils (%) (Auto) 67 % (31-73) Lymphocytes (%) (Auto) 19 % (24-48) L Monocytes (%) (Auto) 13 % (0-9) H Eosinophils (%) (Auto) 1 % (0-3) Basophils (%) (Auto) 0 % (0-3) Neutrophils # (Auto) 6.3 x10^3uL (1.8-7.7) Lymphocytes # (Auto) 1.8 x10^3/uL (1.0-4.8) Monocytes # (Auto) 1.2 x10^3/uL (0.0-1.1) H Eosinophils # (Auto) 0.1 x10^3/uL (0.0-0.7) Basophils # (Auto) 0.0 x10^3/uL (0.0-0.2) Vital Signs: Vital Signs Date Time Temp Pulse Resp B/P (MAP) Pulse Ox O2 Delivery O2 Flow Rate FiO2 01/25/20 09:45 98.3 90 60 125/73 (90) 100 Room Air EKG: EKG: @ 0953 NSR at 85bpm, NO ST elevation, QRS 80ms, QT/QTc 344ms/410ms Radiology/Procedures: Radiology/Procedures: PROCEDURE: CT ANGIOGRAPHY CHEST PQRS Compliance Statement: One or more of the following individualized dose reduction techniques were utilized for this examination: 1. Automated exposure control 2. Adjustment of the mA and/or kV according to patient size 3. Use of iterative reconstruction technique CT CHEST WITH CONTRAST, PULMONARY ANGIOGRAM History: Reason: SOA / Spl. Instructions: / History: Comparison: CT chest with contrast, CT PE, April 08, 2019. Technique: Helical CT of the chest was performed after the administration of 100 cc of Omnipaque 350 intravenous contrast according to PE protocol. Axial and coronal reconstructions were obtained. 3-D MIP images were constructed to better evaluate the pulmonary arteries. Findings: Pulmonary arteries are adequately opacified. There is no evidence of pulmonary embolism. There is no thoracic aortic dissection. There are several mediastinal lymph nodes, nonpathologically enlarged. No hilar adenopathy. The great vessels are normal caliber. The cardiac size is normal. Small pericardial effusion. There is no pleural effusion. There is moderate centrilobular emphysema. The central airways are patent. There is no lung consolidation. The visualized upper abdomen is unremarkable. Thoracic spine alignment is maintained. No acute bone abnormalities identified. IMPRESSION: 1. There is no CT evidence of pulmonary embolus. 2. Moderate centrilobular emphysema. Electronically signed by: Keyon Garcia MD (01/25/2020 12:04 PM) [id number] Course & Med Decision Making: Course & Med Decision Making Pertinent Labs and Imaging studies reviewed. (See chart for details) Patient with past medical history of COPD presents with continued shortness of air with productive cough that has been ongoing for the past week. Patient was seen on 01/21/2020 and diagnosed with COPD exacerbation. Patient was started on empiric steroid. Reports she took her last dose of steroids today and continues to feel weak and fatigued. Patient reports her shortness of breath has not improved. Previous work-up benign including chest x-ray. EKG stable. Labs obtained and posted to chart. Cannot fully exclude COVID-19. COVID precautions in place. COVID testing pending. CTA chest without acute process. Patient requiring admission for further evaluation and treatment. Discussed with Dr. Escobedo (hospitalist) who is in agreement with admission. Discussed findings and plan with patient, who acknowledges understanding and agreement. COVID-19 CRITERIA: The patient was evaluated during the global COVID-19 pandemic, and that diagnosis was suspected/considered upon their initial presentation. Their evaluation, treatment and testing was consistent with current guidelines for patients who present with complaints or symptoms that may be related to COVID-19. Dragon Disclaimer: Dragon Disclaimer: This electronic medical record was generated, in whole or in part, using a voice recognition dictation system. Departure Departure: Impression: Primary Impression: Shortness of breath Additional Impressions: Suspected 2019 novel coronavirus infection Failure of outpatient treatment Disposition: ADMITTED INPATIENT Admitting Physician: Teressa Escobedo Condition: STABLE Referrals: TOM ROPER MD (PCP) Justification of Admission: Justification of Admission: Justification of Admission Dx: Yes Comments: SOA, COVID PUI, Failed outpatient therapy COVID-19 Assessment COVID-19 Patient Risks: Age 65 or older: Yes Sign of co-morbidity: Yes Exp to person + for COVID: No Exp to PUI: No Travel from affected area: No Lower respiratory symptoms: Yes Fever: No PPE Use: Full PPE with N95 mask or PAPR: Yes LANDY DONALDSON DO Jan 25, 2020 10:31
--- NOTE | 2020-01-25 10:48 | EKG ---
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
[2020-01-25] MEDS ORDERED: ONDANSETRON PF 4 MG/2 ML VIAL. IVP PRN (11:30)
[2020-01-25] MEDS ORDERED: IOHEXOL 350 MG/ML 100 ML VIAL. IV ONE (11:30)
[2020-01-25 11:59] LABS: HEMOGLOBIN ISTAT 11.9 gm/dL; POTASSIUM ISTAT 3.3 mmol/L (3.5-5.0)
--- NOTE | 2020-01-25 12:05 | NUR ---
Patient arrived to unit via EMS. Patient is pleasant and cooperative with medications and assessment. VS obtained and are stable. Patient is offered food and drink and accepts. Patient is resting in room eating lunch tray at this time. Will continue to monitor.
--- NOTE | 2020-01-25 12:07 | RAD ---
PQRS Compliance Statement: One or more of the following individualized dose reduction techniques were utilized for this examination: 1. Automated exposure control 2. Adjustment of the mA and/or kV according to patient size 3. Use of iterative reconstruction technique CT CHEST WITH CONTRAST, PULMONARY ANGIOGRAM History: Reason: SOA / Spl. Instructions: / History: Comparison: CT chest with contrast, CT PE, April 08, 2019. Technique: Helical CT of the chest was performed after the administration of 100 cc of Omnipaque 350 intravenous contrast according to PE protocol. Axial and coronal reconstructions were obtained. 3-D MIP images were constructed to better evaluate the pulmonary arteries. Findings: Pulmonary arteries are adequately opacified. There is no evidence of pulmonary embolism. There is no thoracic aortic dissection. There are several mediastinal lymph nodes, nonpathologically enlarged. No hilar adenopathy. The great vessels are normal caliber. The cardiac size is normal. Small pericardial effusion. There is no pleural effusion. There is moderate centrilobular emphysema. The central airways are patent. There is no lung consolidation. The visualized upper abdomen is unremarkable. Thoracic spine alignment is maintained. No acute bone abnormalities identified. IMPRESSION: 1. There is no CT evidence of pulmonary embolus. 2. Moderate centrilobular emphysema. Electronically signed by: Keyon Garcia MD (01/25/2020 12:04 PM) [id number]
[2020-01-25 12:32] VITALS: BP 120/68
[2020-01-25] MEDS ORDERED: POTASSIUM CHLORIDE 20 MEQ TABLET.ER. PO ONE (13:00)
[2020-01-25 13:03] LABS: BACTERIA,URINE 0 /HPF (0-FEW); BILIRUBIN,URINE NEG (NEG); CLARITY,URINE CLEAR; COLOR,URINE YELLOW; GLUCOSE,URINE NEG (NEG); NITRITE,URINE NEG (NEG); RBC,URINE 0 /HPF (0-2); SQUAMOUS EPITHELIAL CELL,UR OCC /LPF; UROBILINOGEN,URINE 0.2 mg/dL (0.2 mg/dL); WBC,URINE OCC /HPF (0-4)
--- NOTE | 2020-01-25 14:23 | HP ---
ADMIT DATE: 01/25/2020 HISTORY OF PRESENT ILLNESS: The patient is a 74-year-old female patient who came to the Emergency Room complaining of shortness of breath, cough with whitish sputum and shortness of breath. She was here on 01/21/2020. She was given steroids. The patient stated that she took the last dose of 50 mg prednisone this morning. Reports continued malaise and shortness of breath. Denied any trauma or fall. Denied any chills, rigors, or fever. Denied any swelling of the legs, calf tenderness. She has no known exposure to COVID-19. She was extensively investigated in the Emergency Room. Her lab work was unremarkable except for mild hypokalemia, which she apparently has been diagnosed before. Her D-dimer was less than 0.19. Apparently, the ER physician went ahead and ordered a CT angio of the chest, which basically showed that the pulmonary arteries are adequately opacified. There is no evidence of pulmonary embolism. There is no thoracic aortic dissection. There are several mediastinal lymph nodes, but none pathologically enlarged. No hilar adenopathy. The great vessels are normal in caliber. The cardiac size is normal. Small pericardial effusion. There is no pleural effusion. There is moderate centrilobular emphysema. The central airways are patent. There is no lung consolidation. Visualized upper abdomen is unremarkable. Thoracic spine alignment is maintained. No acute bony abnormalities are identified. The patient was admitted with acute COPD exacerbation. We will continue obviously with steroids and inhalers together with all the other medications. PAST MEDICAL HISTORY: Significant for chronic obstructive pulmonary disease and generalized osteoarthritis. She does have a pulmonary nodule. She was apparently scheduled to have a PET scan and followup appointment with Dr. Carrillo on 09/10, but she canceled the appointment. There are no nodules at least on the CT scan that was done this morning. PAST SURGICAL HISTORY: Significant for tonsillectomy, breast biopsy, tubal ligation, esophagogastroduodenoscopy and colonoscopy. ALLERGIES: She is allergic to FLU SHOTS. FAMILY HISTORY: She has 4 brothers and 5 sisters. One brother of thyroid cancer at the age of 60. Her father at age of 93 and mother at age of 98. SOCIAL HISTORY: She is . She has 1 daughter and 1 son. She quit smoking about a year ago. She smoked at least 10 cigarettes a day for almost 50 years. She does not drink alcohol. 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 MEDICATIONS: She is currently on the following medications: She is on ipratropium bromide, albuterol sulfate by nebulizer 4 times a day. She is on Stiolto Respimat inhaler 2 puffs once a day and albuterol sulfate by nebulizer every 6 hours. She was also on a tapering course of steroids. PHYSICAL EXAMINATION: GENERAL: On arrival to the Emergency Room, she looked tachypneic, cachectic, but not jaundiced or cyanosis. No lymphadenopathy, no thyromegaly. No jugular venous distention. No lower limb edema. VITAL SIGNS: Her heart rate was 90, blood pressure was 125/73, temperature was 98.3, respiratory rate initially was about 16 and oxygen saturation was 100% on room air. HEAD, EYES, EARS, NOSE AND THROAT: Showed normocephalic, atraumatic. NECK: Supple. HEART: Showed normal first and second heart sounds. No gallop or murmur. CHEST: Shows central trachea, equally reduced expansion, reduced air entry, vesicular breath sounds. I really could not appreciate any crepitation or rhonchi. ABDOMEN: Scaphoid, soft, nontender. NEUROLOGIC: She is clearly very anxious, but otherwise she has no lateralizing sign. LABORATORY DATA: Her lab work on arrival showed a white cell count 9500, hemoglobin 14, hematocrit 41, MCV was 94 and platelet count 237,000 with normal manual differential. Her chemistry showed a serum sodium 138, potassium 3.3, chloride 104, bicarbonate 24, anion gap of 14, BUN 13, creatinine 0.6, estimated GFR was 79 mL per minute. Her glucose was 79 and ionized calcium was 1.14. Her D-dimer was less than 0.19, and urinalysis essentially unremarkable. Her CT scan of the chest showed no evidence of pulmonary emboli, no evidence of thoracic aortic dissection, no hilar lymphadenopathy. The great vessels are normal in caliber. The cardiac size is normal. Did have a small pericardial effusion. There is no pleural effusion. She has moderate centrilobular emphysema. The central airways are patent. There is no lung consolidation. ASSESSMENT AND PLAN: The patient will be admitted, will be started on IV Solu-Medrol, continue with the inhalers. We did swab her for COVID, although there is no clinical or radiological evidence to suggest that. PEPE DUBOIS MD DR: ANGIE/kinjal JOB#: [id number] / [id number]
[2020-01-25 15:05] VITALS: BP 96/66
[2020-01-25] MEDS: IPRATROPIUM/ALBUTEROL 20/100mcg/INH INHALER. INH SCH ×2 (15:24→21:32)
[2020-01-25 16:24] LABS: ALBUMIN/GLOBULIN RATIO 1.5 (1.0-1.7); TOTAL BILIRUBIN 0.7 mg/dL (0.2-1.0)
[2020-01-25 16:25] LABS: ALK PHOS 114 U/L (46-116); ALT (SGPT) 22 U/L (14-59); AST (SGOT) 48 U/L (15-37)
[2020-01-25 16:29] LABS: MAGNESIUM 2.4 mg/dL (1.8-2.4); TOTAL PROTEIN 6.6 g/dL (6.4-8.2)
[2020-01-25] MEDS: POTASSIUM CHLORIDE 20 MEQ TABLET.ER. PO SCH (21:31)
[2020-01-25] MEDS: methylPREDNISolone SOD SUCC PF 40 MG/ML VIAL. IV SCH (21:32)
[2020-01-25 23:00] VITALS: BP 110/68
[2020-01-26] MEDS: methylPREDNISolone SOD SUCC PF 40 MG/ML VIAL. IV SCH ×3 (05:11→20:59)
[2020-01-26 05:27] VITALS: BP 118/84
--- NOTE | 2020-01-26 06:04 | NUR ---
Patient remains on isolation precautions pending COVID-19 results. She is in pleasant spirits, polite and interactive. Calm, cooperative and compliant with assessments and medications taken whole. Patient denies any pain or discomfort.
[2020-01-26] MEDS: IPRATROPIUM/ALBUTEROL 20/100mcg/INH INHALER. INH SCH ×4 (08:00→20:00)
[2020-01-26] MEDS: POTASSIUM CHLORIDE 20 MEQ TABLET.ER. PO SCH ×3 (08:11→21:00)
[2020-01-26 08:25] LABS: BASO % 0 % (0-3); EOS % 0 % (0-3); HEMATOCRIT 43.5 % (36.0-47.0); HEMOGLOBIN 14.6 g/dL (12.0-15.5); LYMPH # 0.7 x10^3/uL (1.0-4.8); LYMPH % 10 % (24-48); MEAN CORPUSCULAR HEMOGLOBIN 32 pg (25-35); MEAN CORPUSCULAR HGB CONC 34 g/dL (31-37); MEAN CORPUSCULAR VOLUME 94 fL (79-100); MONO # 0.1 x10^3/uL (0.0-1.1); MONO % 2 % (0-9); NEUT # 6.1 x10^3uL (1.8-7.7); NEUT % 89 % (31-73); PLATELET COUNT 263 x10^3/uL (140-400); RED BLOOD COUNT 4.61 x10^6/uL (3.50-5.40); RED CELL DISTRIBUTION WIDTH 14.3 % (11.5-14.5); WHITE BLOOD COUNT 6.9 x10^3/uL (4.0-11.0)
[2020-01-26 08:46] LABS: ALBUMIN 3.7 g/dL (3.4-5.0); ALBUMIN/GLOBULIN RATIO 1.3 (1.0-1.7); CALCIUM 8.7 mg/dL (8.5-10.1); CREATININE 0.9 mg/dL (0.6-1.0); GFR 61.2; POTASSIUM 4.4 mmol/L (3.5-5.1); TOTAL BILIRUBIN 0.6 mg/dL (0.2-1.0); TOTAL PROTEIN 6.5 g/dL (6.4-8.2)
--- NOTE | 2020-01-26 09:46 | PN ---
DATE: 01/26/2020 SUBJECTIVE: The patient is sitting on the edge of the bed comfortably, in no apparent distress. She denied any complaint. Nursing staff did not voice any concerns that she had generally uneventful night. PHYSICAL EXAMINATION: GENERAL: When I examined her, she is somewhat pale, extremely cachectic, but no jaundice, cyanosis or thyromegaly. No jugular venous distention. No lower limb edema. VITAL SIGNS: Her heart rate was 82, blood pressure was 118/84, temperature 97.9, respiratory rate 20, and oxygen saturation was 97%. HEAD, EARS, EYES, NOSE AND THROAT: Showed normocephalic, atraumatic. NECK: Supple. CARDIAC: Normal first and second heart sounds. No gallop, rub or murmur. CHEST: Showed central trachea, equally reduced expansion, reduced air entry, vesicular sounds. I could not appreciate any crepitation or rhonchi. ABDOMEN: Scaphoid, soft, nontender. NEUROLOGIC: She is awake, alert, responding appropriately. She is grossly intact. Her intake and output were incompletely recorded. LABORATORY DATA: Her lab work this morning showed a white cell count of 6900, hemoglobin 14.6, hematocrit 43.5, MCV 94 and platelet count of 263,000. Her chemistry showed her serum sodium is 140, potassium 4.4, chloride 105, bicarbonate 27, anion gap of 8, BUN 17, creatinine 0.9, estimated GFR was 61 mL per minute. Her glucose 104, calcium was 8.7. Total bilirubin, AST, ALT, alkaline phosphatase were normal. Total protein was 6.5, albumin was 3.7. ASSESSMENT: 1. Chronic obstructive pulmonary disease exacerbation. PLAN: To continue with her inhalers and steroids. I not really concerned that she has COVID. We did swab her and if this becomes available tomorrow fine, otherwise we will discharge her home and we will call her once if this becomes available. PEPE DUBOIS MD DR: ANGIE/kinjal JOB#: [id number] / [id number]
[2020-01-26 10:38] VITALS: BP 104/65
[2020-01-26 15:17] VITALS: BP 113/68
[2020-01-26 19:19] VITALS: BP 112/64
[2020-01-26 22:23] VITALS: BP 106/65
[2020-01-27] MEDS: methylPREDNISolone SOD SUCC PF 40 MG/ML VIAL. IV SCH (05:17)
[2020-01-27 06:05] VITALS: BP 117/69
[2020-01-27 06:37] LABS: CALCIUM 8.6 mg/dL (8.5-10.1); CREATININE 0.8 mg/dL (0.6-1.0); GFR 70.1; POTASSIUM 4.7 mmol/L (3.5-5.1)
[2020-01-27] MEDS: IPRATROPIUM/ALBUTEROL 20/100mcg/INH INHALER. INH SCH ×2 (08:00→12:00)
[2020-01-27] MEDS: POTASSIUM CHLORIDE 20 MEQ TABLET.ER. PO SCH (09:00)
[2020-01-27 10:45] VITALS: BP 112/58
[2020-01-27] MEDS ORDERED: POTA20TA4 PO (12:24)
[2020-01-27] MEDS ORDERED: PRED20TA PO (12:24)
--- NOTE | 2020-01-27 12:39 | NUR ---
Patient is discharged home with self care. Patients iv id D/C'd tele monitor removed. Patient is given all discharge and follow up instructions. Patient ambulated off of unit.
--- NOTE | 2020-01-27 13:13 | DS ---
DATE OF DISCHARGE: 01/27/2020 HOSPITAL COURSE: The patient is sitting on the edge of the bed, eating her lunch comfortably, in no apparent distress. On questioning her, she said that her chest tightness has finally left. She is breathing much easier. On questioning her, she stated that she has no more chest tightness. She is maintaining her oxygen saturation at 95% on room air. Her COVID-19 by PCR was not detected. Her serum potassium has finally normalized. Her CT scan of the chest showed no evidence of any pulmonary nodules, no PE, no evidence of any infiltrate, effusion or pneumothorax. PHYSICAL EXAMINATION: GENERAL: When I examined her this morning, she looked well and was clearly in no apparent respiratory distress. She was extremely cachectic with body mass index only 17; however, no jaundice or cyanosis. No lymphadenopathy, no thyromegaly. No jugular venous distention. No limb edema. VITAL SIGNS: Her heart rate was 84, blood pressure was 112/58, temperature 98.4, respiratory rate was 20, and oxygen saturation was 95%. The rest of the exam is stable. LABORATORY DATA: As of this morning, her white cell count was 6900, hemoglobin 14, hematocrit 43, MCV 94 and platelet count 263,000. Serum sodium was 142, potassium 4.7, chloride 106, bicarbonate 30, anion gap of 6, BUN 20, creatinine 0.8, estimated GFR was 70 mL per minute. Her glucose was 108, calcium was 8.6. DISCHARGE MEDICATIONS: She was discharged home to continue on following medications, potassium chloride 20 mEq twice a day, prednisone tapering course of steroid as written in prescription, albuterol sulfate 2.5 mg in 0.5 mL by nebulizer every 6 hours and DuoNeb by nebulizer 4 times a day, tiotropium bromide, Stiolto Respimat inhaler spray 2 puffs once a day. FINAL DISCHARGE DIAGNOSES: 1. Chronic obstructive pulmonary disease exacerbation, resolved. 2. Hypokalemia, resolved. 3. Severe cachexia. PEPE DUBOIS MD DR: ANGIE/kinjal JOB#: [id number] / [id number]
== END 2020-01-27 12:41 | disposition home or self-care (01) | DRG 191 ==
LOC: ER 09:45 → 1 SOUTH 10:21
PROVIDERS: ADMIT Internal Medicine; ATTEND Internal Medicine
DX: J43.2 Centrilobular emphysema (principal); I31.3 Pericardial effusion (noninflammatory); R64 Cachexia; Z68.1 Body mass index [BMI] 19.9 or less, adult; E87.6 Hypokalemia; F17.210 Nicotine dependence, cigarettes, uncomplicated; M15.9 Polyosteoarthritis, unspecified; Z20.828 Contact with and (suspected) exposure to other viral communicable diseases; Z80.8 Family history of malignant neoplasm of other organs or systems; F41.9 Anxiety disorder, unspecified; Z90.49 Acquired absence of other specified parts of digestive tract
CPT/HCPCS: 36415; 71275; 80047; 80048; 80053; 81001; 82553; 83605; 83735; 83880; 84484; 85025; 85379; 93005; 96360; 96361; J1100; J2920; Q9967; 99285-25; J7030; U0003-CS

== ENCOUNTER 2020-04-20 21:33 | Inpatient (IN) | payer MEDICARE ==
[~2020-04-20] VITALS: Ht 162.6 cm; Wt 49.7 kg
[~2020-04-20 21:33] MED LIST changes: +POTA20TA4 PO
--- NOTE | 2020-04-20 21:39 | PHYS DOC ---
Past History Past Medical History: Anxiety, Bronchitis, COPD Past Surgical History: Tonsillectomy Smoking: Quit Greater Than 1 Year Alcohol Use: None Drug Use: None General Adult HPI: HPI: ". I got bad lungs.. and emphysema.. and COPD.. I ve quit smoking.. almost two years. ... to night.. my wheezing... and cough got bad.. and I ve been doing my meds.. but .. I just could not get my breath.. back..".. "and this chest discomfort.. would not let up..>" Patient is a 74 year old female who presents with above hx and complaints dyspnea, chest discomfort. Patient has long history of COPD/emphysema. Patient has not required home oxygen. But tonight patient states she got very dyspneic in spite of using her meds as directed. Patient and obviously respiratory distress, intercostal retractions, and wheezes which can be heard from outside the room. Patient denies any recent travel or specific ill contacts. Patient denies any recent changes in meds. Patient has not recently been on any oral steroids. Patient has used a steroid inhaler. Patient does not know her best peak flow. Patient does have a history of past COPD exacerbations, and did require a hospital stay in January for a COPD exacerbation. Patient was noted to have desaturation with activity in the emergency department. Patient denies any immunosuppression. Patient denies any recent travel outside the [place] area. Patient denies any specific ill contacts. Pt. follows with . Review of Systems: Review of Systems: Constitutional: Denies fever or chills Eyes: Denies change in visual acuity HENT: Denies nasal congestion or sore throat Respiratory: Complains of cough, wheezing and marked increase shortness of breath Cardiovascular: Complains of generalized chest discomfort GI: Denies abdominal pain, nausea, vomiting, bloody stools or diarrhea : Denies dysuria Musculoskeletal: Denies back pain or joint pain Integument: Denies rash Neurologic: Denies headache, focal weakness or sensory changes Endocrine: Denies polyuria or polydipsia Lymphatic: Denies swollen glands Psychiatric: Patient complains of anxiety Family History: Family History: Noncontributory to presentation Current Medications: Current Meds: See nursing for home meds Allergies: Allergies: Allergies Coded Allergies Type Severity Reaction Last Updated Verified influenza virus vaccine ts [id number] (36 mos,up) Allergy Intermediate 10/04/18 Yes cyclobenzaprine Allergy Unknown 08/11/19 Yes Physical Exam: PE: Constitutional: in acute distress, very anxious and appearance. Pursed lip breathing. HENT: Normocephalic, atraumatic, bilateral external ears normal, oropharynx moist, mild posterior pharyngeal drainage no oral exudates, nose swollen turbinates clear rhinorrhea Eyes: PERRLA, EOMI, conjunctiva normal, no discharge. [] Neck: Normal range of motion, no tenderness, supple, no stridor. [] Cardiovascular: Tachycardia heart rate regular rhythm, no murmur [] Lungs & Thorax: Bilateral breath sounds equal apex with scattered wheezing throughout auscultation. Does have intercostal retractions. Patient sitting erect in a tripod position with use of abdomen muscles assist with breathing. Abdomen: Bowel sounds decreased, soft, no tenderness, no masses, no pulsatile masses. [] Skin: Warm, diaphoretic, no erythema, no rash. Poor turgor Back: No tenderness, no CVA tenderness. [] Extremities: No tenderness, no cyanosis, no clubbing, ROM intact, no edema. No cording Neurologic: Alert and oriented X 3, moves extremities on request, does have distal sensory, no focal deficits noted. [] Psychologic: Affect very anxious, judgement normal, mood normal. [] EKG: EKG: My interpretation EKG shows a sinus rhythm at 93 bpm. There is no findings of acute STEMI of contralateral changes. [] Radiology/Procedures: Radiology/Procedures: [][place] [address] IMAGING REPORT Signed PATIENT: CEM ABARCA ACCOUNT: [id number] : 1945 LOCATION: ER AGE: 74 SEX: F EXAM STATUS: REG ER ORD. PHYSICIAN: JOSE ARMANDO KIM MD REASON: dyspnea, copd exacerbation PROCEDURE: PORTABLE CHEST 1V Exam: Chest one view INDICATION: Dyspnea, COPD exacerbation TECHNIQUE: Frontal view of the chest Comparisons: 01/20/2022 FINDINGS: The cardiomediastinal silhouette and pulmonary vessels are within normal limits. The lung and pleural spaces are clear. IMPRESSION: No acute consolidation. Electronically signed by: Dena Rashid MD (04/20/2020 11:24 PM) [facility] DICTATED AND SIGNED BY: DENA RASHID MD DATE: 04/20/20 [id number] CC: JOSE ARMANDO KIM MD; TOM ROPER MD ~ Heart Score: HEART Score for Chest Pain: HEART Score for Chest Pain Response (Comments) Value History Slighlty/Non-Suspicious 0 ECG Normal 0 Age > 65 2 Risk Factors 1 or 2 Risk Factors 1 Troponin < Normal Limit 0 Total 3 Risk Factors: Risk Factors: DM, Current or recent (<one month) smoker, HTN, HLP, family history of CAD, obesity. Risk Scores: Score 0 - 3: 2.5% MACE over next 6 weeks - Discharge Home Score 4 - 6: 20.3% MACE over next 6 weeks - Admit for Clinical Observation Score 7 - 10: 72.7% MACE over next 6 weeks - Early Invasive Strategies Course & Med Decision Making: Course & Med Decision Making Pertinent Labs and Imaging studies reviewed. (See chart for details) Patient received Solu-Medrol in route as well as breathing treatments. Patient had repeat treatments. Still had episodes of desaturation with any activity. Discussed presentation test and treatment plan with . Plan admit for COPD exacerbation. Impression: 1, Acute on chronic COPD / Emphysema exacerbation 2. Mild leukocytosis 12.3 3. Hypoxia-desaturation with activity 4. Chest Discomfort [] Dragon Disclaimer: Dragon Disclaimer: This electronic medical record was generated, in whole or in part, using a voice recognition dictation system. Departure Departure: Referrals: TOM ROPER MD (PCP) Dragon Disclaimer This chart was dictated in whole or in part using Voice Recognition software in a busy, high-work load, and often noisy Emergency Department environment. It may contain unintended and wholly unrecognized errors or omissions. Dragon Disclaimer This chart was dictated in whole or in part using Voice Recognition software in a busy, high-work load, and often noisy Emergency Department environment. It may contain unintended and wholly unrecognized errors or omissions. JOSE ARMANDO KIM MD Apr 20, 2020 21:39
[2020-04-20] MEDS ORDERED: IV RINGERS SOLUTION,LACTATED 1,000 ML IV SCH (21:51)
[2020-04-20] MEDS ORDERED: ASPIRIN CHEWABLE 81 MG TABLET. PO ONE (22:30)
[2020-04-20] MEDS ORDERED: IPRATRPIUM/ALBUTEROL 0.5/2.5MG 3 ML NEBU. NEB ONE (22:30)
[2020-04-20] MEDS ORDERED: AZITHROMYCIN 250 MG TABLET. PO ONE (22:30)
[2020-04-20 22:42] LABS: BASO # 0.1 x10^3/uL (0.0-0.2); BASO % 1 % (0-3); EOS % 0 % (0-3); HEMATOCRIT 40.6 % (36.0-47.0); HEMOGLOBIN 13.4 g/dL (12.0-15.5); LYMPH # 1.4 x10^3/uL (1.0-4.8); LYMPH % 11 % (24-48); MEAN CORPUSCULAR HEMOGLOBIN 31 pg (25-35); MEAN CORPUSCULAR HGB CONC 33 g/dL (31-37); MEAN CORPUSCULAR VOLUME 94 fL (79-100); MONO # 0.7 x10^3/uL (0.0-1.1); MONO % 6 % (0-9); NEUT # 10.4 x10^3uL (1.8-7.7); NEUT % 82 % (31-73); PLATELET COUNT 221 x10^3/uL (140-400); RED BLOOD COUNT 4.34 x10^6/uL (3.50-5.40); RED CELL DISTRIBUTION WIDTH 13.2 % (11.5-14.5); WHITE BLOOD COUNT 12.7 x10^3/uL (4.0-11.0)
[2020-04-20 22:55] LABS: ANION GAP 10 (6-14); BLOOD UREA NITROGEN 15 mg/dL (7-20); BUN/CREATININE RATIO 17 (6-20); CARBON DIOXIDE 26 mmol/L (21-32); CHLORIDE 104 mmol/L (98-107); CREATININE 0.9 mg/dL (0.6-1.0); GFR 61.2; GLUCOSE 109 mg/dL (70-99); POTASSIUM 3.5 mmol/L (3.5-5.1); SODIUM 140 mmol/L (136-145)
[2020-04-20 23:06] LABS: BILIRUBIN,URINE NEG (NEG); CLARITY,URINE CLEAR; COLOR,URINE YELLOW; GLUCOSE,URINE NEG (NEG)
[2020-04-20 23:07] LABS: BACTERIA,URINE 0 /HPF (0-FEW); NITRITE,URINE NEG (NEG); RBC,URINE 0 /HPF (0-2); SQUAMOUS EPITHELIAL CELL,UR OCC /LPF; UROBILINOGEN,URINE 0.2 mg/dL (0.2 mg/dL); WBC,URINE OCC /HPF (0-4)
[2020-04-20 23:08] LABS: ALBUMIN 4.1 g/dL (3.4-5.0); ALBUMIN/GLOBULIN RATIO 1.6 (1.0-1.7); ALK PHOS 108 U/L (46-116); ALT (SGPT) 25 U/L (14-59); AST (SGOT) 28 U/L (15-37); DIRECT BILIRUBIN 0.2 mg/dL (0.0-0.2); LIPASE 87 U/L (73-393); MAGNESIUM 2.2 mg/dL (1.8-2.4); TOTAL BILIRUBIN 0.4 mg/dL (0.2-1.0); TOTAL PROTEIN 6.7 g/dL (6.4-8.2)
[2020-04-20 23:12] LABS: C REACTIVE PROTEIN < 0.5 mg/L (0-3.3)
[2020-04-20 23:23] LABS: BARBITURATES NEG (NEG); BENZODIAZEPINES NEG (NEG); CANNABINOIDS NEG (NEG); COCAINE NEG (NEG); METHADONE NEG (NEG); OPIATES NEG (NEG); PHENCYCLIDINE NEG (NEG)
[2020-04-20 23:25] LABS: AMPHETAMINE/METHAMPHETAMINE NEG (NEG)
--- NOTE | 2020-04-20 23:27 | RAD ---
Exam: Chest one view INDICATION: Dyspnea, COPD exacerbation TECHNIQUE: Frontal view of the chest Comparisons: 01/20/2022 FINDINGS: The cardiomediastinal silhouette and pulmonary vessels are within normal limits. The lung and pleural spaces are clear. IMPRESSION: No acute consolidation. Electronically signed by: Dena Theodore MD (04/20/2020 11:24 PM) [facility]PER
[2020-04-21 01:28] LABS: BGAS PH 7.43 (7.35-7.45)
[2020-04-21] MEDS ORDERED: cefTRIAXone SODIUM 1 GM VIAL ONE (01:29)
[2020-04-21] MEDS ORDERED: IV NORMAL SALINE 50ML 50 ML ONE (01:29)
[2020-04-21] MEDS ORDERED: ONDANSETRON PF 4 MG/2 ML VIAL. IVP PRN (03:30)
[2020-04-21] MEDS ORDERED: ACETAMINOPHEN 325 MG TABLET PO PRN (03:30)
[2020-04-21] MEDS ORDERED: FLUT12HF3 IH (05:33)
[2020-04-21] MEDS ORDERED: ALBU8HFA2 INH (05:33)
[2020-04-21] MEDS ORDERED: IPRA3AMP29 NEB (05:33)
--- NOTE | 2020-04-21 05:34 | NUR ---
The patient, CEM ABARCA, 75 y/o, F admitted by PEPE DUBOIS MD, was given written information regarding hospital policies, unit procedures and contact persons. Health history and home medications were reviewed with patient. Bed locked and in lowest position, call light within reach. Valuables were checked and left with patient.
--- NOTE | 2020-04-21 06:43 | EKG ---
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
[2020-04-21 06:44] VITALS: BP 99/62
[2020-04-21] MEDS: IPRATRPIUM/ALBUTEROL 0.5/2.5MG 3 ML NEBU. NEB SCH ×4 (08:00→19:45)
[2020-04-21] MEDS ORDERED: methylPREDNISolone SOD SUCC PF 125 MG/2 ML VIAL. IV SCH (09:00)
[2020-04-21] MEDS: IV RINGERS SOLUTION,LACTATED 1,000 ML IV SCH ×3 (10:05→20:26)
[2020-04-21 11:25] VITALS: BP 106/59
[2020-04-21 15:12] VITALS: BP 92/50
--- NOTE | 2020-04-21 16:08 | HP ---
ADMIT DATE: 04/21/2020 HISTORY OF PRESENT ILLNESS: The patient is a 74-year-old female patient who came with complaint of shortness of breath, wheezing and cough that worsened despite taking her medication as prescribed. Her shortness of breath and chest discomfort would not let up. When she arrived to the Emergency Room, she was obviously in respiratory distress with intercostal retraction and wheezing that can be heard from outside the room. She denies any recent travel or specific ill contact. The patient denied any recent change in medication, has not recently been on any oral steroids; however, she has been using her steroid inhalers. She has had multiple episodes of COPD exacerbation before. Did require hospitalization at [facility] and also at [facility]. She desaturates quickly with activity in the Emergency Department and while in the Emergency Room, she was treated with steroids as well as IV antibiotic and inhaler and was admitted for further evaluation and treatment. PAST MEDICAL HISTORY: Significant for chronic obstructive pulmonary disease and generalized osteoarthritis. She did have a pulmonary nodule before that somehow disappeared on her most recent CT scan done on her last admission on 01/25/2020. PAST SURGICAL HISTORY: Significant for tonsillectomy, breast biopsy, tubal ligation, esophagogastroduodenoscopy and colonoscopy. ALLERGIES: She is allergic to FLU SHOTS. FAMILY HISTORY: She has 4 brothers and 5 sisters. One brother of thyroid cancer at the age of 60. Her father at age of 93 and mother at the age of 98. SOCIAL HISTORY: She is , has 1 daughter and 1 son. She quit smoking about 2 years ago. She smoked at least 10 cigarettes a day for almost 50 years. 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 MEDICATIONS: She is currently on following medications: She is on ipratropium bromide, albuterol sulfate 3 mL by nebulizer 4 times a day. She is on thiamine bromide, Detrol 2 puffs daily. She is on albuterol sulfate 2.5 mg/0.5 mL by nebulizer every 6 hours and albuterol inhaler 2 puffs every 2 hours as needed, potassium chloride 20 mEq twice a day, Advair Diskus 1 puff twice a day and prednisone 20 mg daily. REVIEW OF SYSTEMS: As per history of present illness. PHYSICAL EXAMINATION: GENERAL: On arrival to the Emergency Room, the patient was clearly markedly tachypneic, but there was no pallor, jaundice, cyanosis or thyromegaly. No jugular venous distention. No limb edema. VITAL SIGNS: Her heart rate was 88, blood pressure was 147/116, temperature was 98.1, respiratory rate 30 and oxygen saturation was 95% on 3 liters of oxygen. HEAD, EYES, EARS, NOSE AND THROAT: Showed normocephalic, atraumatic. NECK: Supple. HEART: Showed normal first and second heart sounds. No gallop, rub or murmur. CHEST: Shows central trachea, equally reduced expansion, reduced air entry with diffuse rhonchi. The patient has been clearly distressed using intercostal muscles. ABDOMEN: Slightly distended, soft, nontender. NEUROLOGIC: She was grossly intact. LABORATORY DATA: Her lab work on arrival showed a white cell count 12,700, hemoglobin 13, hematocrit 40, MCV 94 and platelet count 221,000. Her chemistry showed a serum sodium 140, potassium 3.5, chloride 104, bicarbonate 26, anion gap of 10, BUN 15, creatinine 0.9, estimated GFR was 61 mL per minute. Her glucose was 109, calcium was 9, magnesium was 2.2. Total bilirubin, AST, ALT, alkaline phosphatase were normal. C-reactive protein was 0.5. Beta-natriuretic peptide was 215, total protein 6.7, albumin was 4.1. Lipase was 87 and TSH was 1.372. She has 2 sets of cardiac enzymes that ruled out myocardial infarction. Her prothrombin time, INR, aPTT and D-dimer are all normal. Urinalysis essentially unremarkable and urine drug screen was negative. Her chest x-ray showed the cardiomediastinal silhouette and pulmonary vessels are within normal limits. The lungs and pleural spaces are clear. ASSESSMENT AND PLAN: The patient was admitted with chronic obstructive pulmonary disease exacerbation. We will continue obviously with IV steroids, bronchodilators as well as IV antibiotics. PEPE DUBOIS MD DR: ANGIE/kinjal JOB#: [id number] / [id number]
--- NOTE | 2020-04-21 17:14 | NUR ---
NURSING NOTE PT CALLED TO SPEAK WITH DR DUBOIS. PT VERY ANXIOUS STATING THAT SHE DID NOT HAVE GOOD OUTCOME WITH DR MULTANI FROM VISIT IN SEPTEMBER, PT REQUEST TO SEE IF DR LYNCH WILL ACCEPT HER TO SEE HER. DR LYNCH ACCEPTED. PAZ FULTON.
--- NOTE | 2020-04-21 18:03 | NUR ---
END OF SHIFT-Pt is A&O, able to participate in POC et education. Denies pain in any location. Continues to require O2 at 2L/NC 2/2 significant CARD. Mobility is good, ambulates ad lora to bathroom PRN.
[2020-04-21 18:18] VITALS: BP 108/49
[2020-04-21] MEDS: AZITHROMYCIN 250 MG TABLET. PO SCH (20:25)
[2020-04-21] MEDS: methylPREDNISolone SOD SUCC PF 40 MG/ML VIAL. IV SCH (20:41)
[2020-04-21 22:59] VITALS: BP 89/46
[2020-04-22] MEDS: IPRATRPIUM/ALBUTEROL 0.5/2.5MG 3 ML NEBU. NEB SCH ×4 (05:00→20:34)
[2020-04-22 05:48] VITALS: BP 94/53
[2020-04-22] MEDS: methylPREDNISolone SOD SUCC PF 40 MG/ML VIAL. IV SCH ×3 (05:48→20:24)
[2020-04-22 07:06] LABS: BASO % 0 % (0-3); EOS % 0 % (0-3); HEMOGLOBIN 11.8 g/dL (12.0-15.5); LYMPH # 0.7 x10^3/uL (1.0-4.8); LYMPH % 4 % (24-48); MEAN CORPUSCULAR HEMOGLOBIN 31 pg (25-35); MEAN CORPUSCULAR HGB CONC 33 g/dL (31-37); MEAN CORPUSCULAR VOLUME 94 fL (79-100); MONO # 0.6 x10^3/uL (0.0-1.1); MONO % 4 % (0-9); NEUT # 15.4 x10^3uL (1.8-7.7); NEUT % 92 % (31-73); PLATELET COUNT 208 x10^3/uL (140-400); RED BLOOD COUNT 3.84 x10^6/uL (3.50-5.40); RED CELL DISTRIBUTION WIDTH 13.3 % (11.5-14.5); WHITE BLOOD COUNT 16.8 x10^3/uL (4.0-11.0)
[2020-04-22 07:26] LABS: CALCIUM 8.8 mg/dL (8.5-10.1); CREATININE 0.7 mg/dL (0.6-1.0); GFR 81.6; POTASSIUM 4.1 mmol/L (3.5-5.1)
[2020-04-22] MEDS ORDERED: IPRATRPIUM/ALBUTEROL 0.5/2.5MG 3 ML NEBU. NEB SCH ×2 (08:00→13:00)
[2020-04-22] MEDS: IV RINGERS SOLUTION,LACTATED 1,000 ML IV SCH ×5 (09:27→21:00)
[2020-04-22 10:23] VITALS: BP 91/58
[2020-04-22] MEDS ORDERED: ALBUTEROL SULFATE 8GM INHALER. INH PRN (10:45)
[2020-04-22] MEDS ORDERED: ALBUTEROL SULFATE 2.5 MG/3 ML NEBU. NEB PRN (11:00)
[2020-04-22 11:20] LABS: % BANDS 1 % (0-9); % LYMPHS 2 % (24-48); % MONOS 3 % (0-10); % SEGS 94 % (35-66)
[2020-04-22 11:21] LABS: PLT ESTIMATE ADEQUATE (ADEQUATE)
[2020-04-22] MEDS ORDERED: NON FORMULARY ITEM (Albuterol Sulfate (Albuterol Sulfate Conc Neb Soln) 1 VIAL) NEB SCH (12:00)
[2020-04-22 14:05] VITALS: BP 90/52
[2020-04-22 20:15] VITALS: BP 98/58
[2020-04-22] MEDS: AZITHROMYCIN 250 MG TABLET. PO SCH (20:23)
[2020-04-22] MEDS: LACTOBACILLUS RHAMNOSUS GG 1 CAPSULE. PO SCH (20:25)
[2020-04-22] MEDS: POTASSIUM CHLORIDE 20 MEQ TABLET.ER. PO SCH (20:25)
[2020-04-23] MEDS: IPRATRPIUM/ALBUTEROL 0.5/2.5MG 3 ML NEBU. NEB SCH ×4 (05:25→20:17)
[2020-04-23] MEDS: IV RINGERS SOLUTION,LACTATED 1,000 ML IV SCH (05:38)
[2020-04-23 06:07] VITALS: BP 101/53
[2020-04-23] MEDS: LACTOBACILLUS RHAMNOSUS GG 1 CAPSULE. PO SCH ×2 (07:43→20:16)
[2020-04-23] MEDS: POTASSIUM CHLORIDE 20 MEQ TABLET.ER. PO SCH ×2 (07:43→20:16)
[2020-04-23] MEDS: methylPREDNISolone SOD SUCC PF 40 MG/ML VIAL. IV SCH ×2 (07:44→20:16)
[2020-04-23] MEDS ORDERED: POLYETHYLENE GLYCOL 3350 17 GM PACKET. PO PRN (10:00)
[2020-04-23] MEDS ORDERED: POLYETHYLENE GLYCOL 3350 17 GM PACKET. PO ONE (10:15)
[2020-04-23 11:09] VITALS: BP 110/57
--- NOTE | 2020-04-23 13:01 | PN ---
DATE: SUBJECTIVE: A 75-year-old female who was admitted by Dr. Escobedo, for exacerbation of COPD. She had chief complaint of shortness of breath, severe coughing spasms and wheezing, came in through the Emergency Room, was admitted for further evaluation of her exacerbation of COPD. The patient desaturates very quickly with any minimal exertion and had been treated as an outpatient without any success. She was admitted for IV steroids, IV antibiotic therapy and further evaluation. The patient otherwise has past medical history positive for tonsillectomy, breast biopsy, tubal ligation, esophageal esophagogastroduodenoscopy and colonoscopy. Allergy to FLU SHOTS. OBJECTIVE: GENERAL: On exam today, the patient says she is feeling a little bit stronger and seems to be making a fair amount of progress. The patient is alert and oriented. VITAL SIGNS: Her blood pressure is still on the low side 90/52 (NC), respiratory rate 20, pulse 93, afebrile. LUNGS: Diminished throughout. She has somewhat of a COPD appearance with some frailness noted to the musculoskeletal. CARDIOVASCULAR: Regular sinus rhythm. ABDOMEN: Soft, nontender and scaphoid. EXTREMITIES: No clubbing, cyanosis or edema. NEUROLOGIC: Intact. LABORATORY DATA: Otherwise, white count has gone up to 16,000, but is on steroids and that could be a source of that. The patient's blood gas 7.43, pCO2 of 34, pO2 of 100. The patient's D-dimer was unremarkable. Chemistries were unremarkable. Otherwise, we will continue to monitor the patient; adjust her medication, taper down on her Solu-Medrol from 40 q.8 to 40 q.12 and will make further adjustment on her as indicated. IMPRESSION: Admitted for exacerbation of chronic obstructive pulmonary disease with pulmonary disease with acute hypoxic exacerbation. PLAN: Continue on steroids and antibiotics for now and make further adjustments according to the clinical picture of tomorrow. MEGHA LYNCH MD DR: JORGE/kinjal JOB#: [id number] / [id number]
[2020-04-23 15:07] VITALS: BP 105/61
--- NOTE | 2020-04-23 18:13 | NUR ---
NURSING NOTE: PT IN BED UPON MEDICATION ADMINISTRATION AND ASSESSMENT THIS AM. PT COMPLIANT WITH MEDICATION. PT COMPLAINED OF BEING COLD. PT GIVEN WARM BLANKET. WILL CONTINUE TO MONITOR. PAZ SON
[2020-04-23] MEDS: AZITHROMYCIN 250 MG TABLET. PO SCH (20:16)
[2020-04-23 20:28] VITALS: BP 112/66
[2020-04-23 22:51] VITALS: BP 115/65
[2020-04-24 05:05] VITALS: BP 103/58
[2020-04-24] MEDS: IPRATRPIUM/ALBUTEROL 0.5/2.5MG 3 ML NEBU. NEB SCH ×2 (05:21→12:53)
[2020-04-24] MEDS: POTASSIUM CHLORIDE 20 MEQ TABLET.ER. PO SCH (08:48)
[2020-04-24] MEDS: LACTOBACILLUS RHAMNOSUS GG 1 CAPSULE. PO SCH (08:48)
[2020-04-24] MEDS: methylPREDNISolone SOD SUCC PF 40 MG/ML VIAL. IV SCH (08:48)
--- NOTE | 2020-04-24 09:59 | NUR ---
NURSING NOTE: 6 MINUTE WALK PT O2 WAS 96% BEFORE THE WALK, DURING THE WALK PT DROPPED TO 94%. PT WAS 96% AT THE END OF THE WALK. PT DID NOT WEAR O2 DURING THE WALK. PAZ SON
[2020-04-24 10:32] VITALS: BP 113/66
[2020-04-24] MEDS ORDERED: METH4TAB2 PO (11:44)
[2020-04-24] MEDS ORDERED: POLY17PO5 PO (11:44)
[2020-04-24] MEDS ORDERED: AZIT250T6 PO (11:44)
--- NOTE | 2020-04-24 14:18 | NUR ---
NURSING NOTE: DISCHARGE. PT DISCHARGED VIA AMBULATION. PT PICKED UP BY DAUGHTER. IV REMOVED. VERBAL AND WRITTEN DISCHARGE INSTRUCTIONS GIVEN. VERBAL UNDERSTANDING RECEIVED. RX CALLED IN TO [facility]. NO FURTHER QUESTIONS. PAZ SON
--- NOTE | 2020-04-24 15:32 | PN ---
DATE: SUBJECTIVE: A 75-year-old female in with acute exacerbation of chronic obstructive pulmonary disease with bronchitis, underlying infectious process, doing a little bit better. OBJECTIVE: VITAL SIGNS: Blood pressure 105/60, respiratory rate 18, pulse 80, oxygen saturation markedly improved, afebrile. GENERAL: The patient is alert and oriented. LUNGS: Diminished throughout, but clear. CARDIOVASCULAR: Stable. ABDOMEN: Soft, nontender. IMPRESSION: Acute exacerbation of chronic obstructive pulmonary disease with underlying probable bronchial infection; acute hypoxic exacerbation. PLAN: Taper down on her steroids and make further evaluation on her as indicated. MEGHA LYNCH MD DR: JORGE/kinjal JOB#: [id number] / [id number]
--- NOTE | 2020-05-01 16:09 | DS ---
DATE OF DISCHARGE: 04/24/2020 HOSPITAL COURSE: A 75-year-old female came in with increased shortness of breath. She was admitted by Dr. Escobedo, picked up her care for exacerbation of obstructive pulmonary disease with bronchitis. The patient was placed in the usual protocol of some steroids as well as breathing treatments. The patient's chest x-ray was basically no acute consolidation. The patient's white count did go up a little bit I think with the steroids. Otherwise, chemistries were all within normal limits. Cardiac enzymes are normal as was her TSH of 1.3. In any case, the patient made excellent progress during the rest of her hospitalization and she was discharged home for followup with her regular physician. IMPRESSION: Acute exacerbation of chronic obstructive pulmonary disease with bronchitis, mild anemia, hemoglobin 11.8. PLAN: The patient will be discharged on a regular diet, decreased activity, tapering down on steroids and make further evaluation on her as indicated. MEGHA LYNCH MD DR: JORGE/kinjal JOB#: [id number] / [id number]
== END 2020-04-24 14:20 | disposition home or self-care (01) | DRG 191 ==
LOC: ER 21:33 → 1 SOUTH 04-21 03:43
PROVIDERS: ADMIT Family Medicine; ATTEND Family Medicine
DX: J43.9 Emphysema, unspecified (principal); R65.10 Systemic inflammatory response syndrome (SIRS) of non-infectious origin without acute organ dysfunction; R09.02 Hypoxemia; J20.9 Acute bronchitis, unspecified; M15.9 Polyosteoarthritis, unspecified; D72.829 Elevated white blood cell count, unspecified; F17.210 Nicotine dependence, cigarettes, uncomplicated; Z80.8 Family history of malignant neoplasm of other organs or systems; F41.9 Anxiety disorder, unspecified; Z90.49 Acquired absence of other specified parts of digestive tract; Z88.7 Allergy status to serum and vaccine; Z88.8 Allergy status to other drugs, medicaments and biological substances; Z79.899 Other long term (current) drug therapy; R06.03 Acute respiratory distress
CPT/HCPCS: 36415; 36600; 71045; 80048; 80053; 80076; 80307; 81001; 82550; 82803; 83690; 83735; 83880; 84443; 84484; 85007; 85025; 85379; 85610; 85730; 86140; 87077; 87086; 87186; 93005; 94640; 96361; 96365; 96366; 96375; G0238; J0456; J0696; J2920; J2930; J7120; J7613; 99285-25

== ENCOUNTER 2020-07-03 16:08 | Emergency (ER) | payer MEDICARE ==
[~2020-07-03] VITALS: Ht 162.6 cm; Wt 49.7 kg
[~2020-07-03 16:08] MED LIST changes: +ALBU8HFA2 INH; +AZIT250T6 PO; +FLUT12HF3 IH; +POLY17PO5 PO
[2020-07-03] MEDS ORDERED: DEXAMETHASONE SOD PHOS 10 MG/ML VIAL. IV ONE (16:45)
[2020-07-03 16:59] LABS: BASO % 0 % (0-3); EOS % 0 % (0-3); HEMATOCRIT 41.3 % (36.0-47.0); HEMOGLOBIN 13.8 g/dL (12.0-15.5); LYMPH # 0.9 x10^3/uL (1.0-4.8); LYMPH % 13 % (24-48); MEAN CORPUSCULAR HEMOGLOBIN 31 pg (25-35); MEAN CORPUSCULAR HGB CONC 33 g/dL (31-37); MEAN CORPUSCULAR VOLUME 92 fL (79-100); MONO # 0.5 x10^3/uL (0.0-1.1); MONO % 7 % (0-9); NEUT # 5.6 x10^3uL (1.8-7.7); NEUT % 80 % (31-73); PLATELET COUNT 259 x10^3/uL (140-400); RED CELL DISTRIBUTION WIDTH 12.9 % (11.5-14.5)
[2020-07-03 17:09] LABS: CALCIUM 9.5 mg/dL (8.5-10.1); CREATININE 0.8 mg/dL (0.6-1.0); GFR 69.9; POTASSIUM 4.4 mmol/L (3.5-5.1)
--- NOTE | 2020-07-03 17:18 | RAD ---
XR CHEST 1V CLINICAL INDICATIONS: Shortness of breath COMPARISON: April 20, 2020 Findings: Hyperinflation is seen consistent with COPD. No acute lung infiltrate or pleural effusion o r pulmonary edema or lung mass or pneumothorax is seen. The heart size, pulmonary vasculature, media stinum and both chelita are unremarkable. IMPRESSION: COPD No acute radiographic abnormality is seen. Electronically signed by: Anmol Dill MD (07/03/2020 5:16 PM) [id number]
[2020-07-03 17:22] LABS: ALBUMIN/GLOBULIN RATIO 1.6 (1.0-1.7); C REACTIVE PROTEIN 1.9 mg/L (0-3.3); TOTAL BILIRUBIN 0.4 mg/dL (0.2-1.0); TOTAL PROTEIN 6.5 g/dL (6.4-8.2)
[2020-07-03 17:28] LABS: INFLUENZA A PATIENT NEGATIVE (NEGATIVE); INFLUENZA B PATIENT NEGATIVE (NEGATIVE)
[2020-07-03] MEDS ORDERED: IPRATRPIUM/ALBUTEROL 0.5/2.5MG 3 ML NEBU. NEB ONE (17:30)
--- NOTE | 2020-07-03 17:42 | PHYS DOC ---
Past History Past Medical History: Anxiety, Bronchitis, COPD Past Surgical History: Tonsillectomy Smoking: Quit Greater Than 1 Year Alcohol Use: None Drug Use: None Adult General Chief Complaint Chief Complaint: SHORTNESS OF BREATH [facility] HPI Patient is 75-year-old female past medical history of COPD who presents to the emergency room complaining of COPD exacerbation. Patient states that she has been having increased wheezing and shortness of breath. She denies any fevers, cough, abdominal pain, nausea, vomiting. She states this is consistent with previous COPD exacerbations. She states this happens every couple of months. She is not on oxygen at home. Review of Systems Review of Systems Complete ROS is negative unless otherwise documented in HPI Current Medications Current Medications Current Medications Medications (Trade) Dose Ordered Sig/Amanda Start Time Stop Time Status Last Admin Dose Admin Albuterol/ Ipratropium (Duoneb) 3 ml 1X ONCE 07/03/20 17:30 07/03/20 17:31 DC Dexamethasone Sodium Phosphate (Decadron) 10 mg 1X ONCE 07/03/20 16:45 07/03/20 16:46 DC 07/03/20 16:49 10 MG Allergies Allergies Allergies Coded Allergies Type Severity Reaction Last Updated Verified influenza virus vaccine ts [id number] (36 mos,up) Allergy Intermediate 10/04/18 Yes cyclobenzaprine Allergy Unknown 08/11/19 Yes Physical Exam Physical Exam General: Awake, alert, NAD. Well Nourished, well hydrated. Cooperative HEENT: Atraumatic, EOMI, PERRL, airway patent, moist oral mucosa Neck: Supple, trachea midline Respiratory: CTA bilaterally, normal effort, minimal wheezing diffusely CV: RRR, no murmur, cap refill <2 GI: Soft, nondistended, nontender, no masses MSK: No obvious deformities Skin: Warm, dry, intact Neuro: A&O x3, speech NL, sensory and motor grossly intact, no focal deficits Psych: Normal affect, normal mood, not suicidal or homicidal Current Patient Data Vital Signs Vital Signs Date Time Temp Pulse Resp B/P (MAP) Pulse Ox O2 Delivery O2 Flow Rate FiO2 07/03/20 16:15 98.1 98 20 125/70 (88) 99 Room Air Lab Results Laboratory Tests Test 07/03/20 16:43 07/03/20 16:45 White Blood Count 7.0 x10^3/uL (4.0-11.0) Red Blood Count 4.50 x10^6/uL (3.50-5.40) Hemoglobin 13.8 g/dL (12.0-15.5) Hematocrit 41.3 % (36.0-47.0) Mean Corpuscular Volume 92 fL (79-100) Mean Corpuscular Hemoglobin 31 pg (25-35) Mean Corpuscular Hemoglobin Concent 33 g/dL (31-37) Red Cell Distribution Width 12.9 % (11.5-14.5) Platelet Count 259 x10^3/uL (140-400) Neutrophils (%) (Auto) 80 % (31-73) H Lymphocytes (%) (Auto) 13 % (24-48) L Monocytes (%) (Auto) 7 % (0-9) Eosinophils (%) (Auto) 0 % (0-3) Basophils (%) (Auto) 0 % (0-3) Neutrophils # (Auto) 5.6 x10^3uL (1.8-7.7) Lymphocytes # (Auto) 0.9 x10^3/uL (1.0-4.8) L Monocytes # (Auto) 0.5 x10^3/uL (0.0-1.1) Eosinophils # (Auto) 0.0 x10^3/uL (0.0-0.7) Basophils # (Auto) 0.0 x10^3/uL (0.0-0.2) Sodium Level 140 mmol/L (136-145) Potassium Level 4.4 mmol/L (3.5-5.1) Chloride Level 103 mmol/L (98-107) Carbon Dioxide Level 28 mmol/L (21-32) Anion Gap 9 (6-14) Blood Urea Nitrogen 14 mg/dL (7-20) Creatinine 0.8 mg/dL (0.6-1.0) Estimated GFR (Cockcroft-Gault) 69.9 BUN/Creatinine Ratio 18 (6-20) Glucose Level 111 mg/dL (70-99) H Calcium Level 9.5 mg/dL (8.5-10.1) Total Bilirubin 0.4 mg/dL (0.2-1.0) Aspartate Amino Transferase (AST) 19 U/L (15-37) Alanine Aminotransferase (ALT) 25 U/L (14-59) Alkaline Phosphatase 96 U/L (46-116) Lactate Dehydrogenase 147 U/L (81-234) Creatine Kinase 71 U/L (26-192) Troponin I Quantitative < 0.017 ng/mL (0-0.055) C-Reactive Protein 1.9 mg/L (0-3.3) KX-Rhv-E-Type Natriuretic Peptide 201 pg/mL (0-449) Total Protein 6.5 g/dL (6.4-8.2) Albumin 4.0 g/dL (3.4-5.0) Albumin/Globulin Ratio 1.6 (1.0-1.7) Influenza Type A (Rapid) Negative (NEGATIVE) Influenza Type B (Rapid) Negative (NEGATIVE) EKG EKG [] Radiology/Procedures Radiology/Procedures [] Heart Score Risk Factors: Risk Factors: DM, Current or recent (<one month) smoker, HTN, HLP, family history of CAD, obesity. Risk Scores: Risk Factors: DM, Current or recent (<one month) smoker, HTN, HLP, family history of CAD, obesity. Course & Med Decision Making Course & Med Decision Making Pertinent Labs and Imaging studies reviewed. (See chart for details) Patient is 75-year-old female who presents to the emergency room with a COPD exacerbation. Patient will be given steroids. She is not requiring oxygen and is overall well-appearing. She would like to go home. Patient's test results and vitals while in the ED were fully reviewed and discussed with the patient. Patient is stable and at this time does not need admission to the hospital. We have discussed strict return precautions and the importance of following up with their Primary Care Physician. Patient stated understanding and was given an opportunity to ask any questions. Patient is in agreement with plan. Dragon Disclaimer Dragon Disclaimer This electronic medical record was generated, in whole or in part, using a voice recognition dictation system. Departure Departure: Impression: Primary Impression: COPD exacerbation Disposition: 01 DC HOME SELF CARE/HOMELESS Condition: STABLE Referrals: TOM ROPER MD (PCP) Patient Instructions: Chronic Obstructive Pulmonary Disease Exacerbation CLEMENTE GRUBER MD Jul 03, 2020 17:42
[2020-07-03 18:00] VITALS: BP 123/70
--- NOTE | 2020-07-03 18:08 | EKG ---
[address] [address] Test Date: 2020-07-03 Test Time: 16:29:52 Pat Name: CEM ABARCA Department: Room: Gender: F Flotation Tender: MARIO ALBERTO : 1945 Requested By: CLEMENTE GRUBER Order Number: [id number] Reading MD: Measurements Intervals [place] Rate: 94 P: 90 DE: 154 QRS: 82 QRSD: 78 T: 68 QT: 350 QTc: 443 Interpretive Statements SINUS RHYTHM NO SPECIFIC ECG ABNORMALITIES RI6.02 No previous ECG available for comparison
== END 2020-07-03 17:54 | disposition home or self-care (01) ==
LOC: ER 16:08
DX: J44.1 Chronic obstructive pulmonary disease with (acute) exacerbation (principal); F41.9 Anxiety disorder, unspecified; Z87.891 Personal history of nicotine dependence; Z88.7 Allergy status to serum and vaccine; Z88.8 Allergy status to other drugs, medicaments and biological substances
CPT/HCPCS: 36415; 71045; 80053; 82550; 83615; 83880; 84484; 85025; 86140; 87804; 93005; 94640; 96374; 99285; J1100

== ENCOUNTER 2020-09-12 20:12 | Emergency (ER) | payer MEDICARE ==
[~2020-09-12] VITALS: Ht 162.6 cm; Wt 49.7 kg
--- NOTE | 2020-09-12 20:16 | PHYS DOC ---
Past History Past Medical History: Anxiety, Arthritis, Bronchitis, Constipation, COPD, Sciatica Past Surgical History: Tonsillectomy Smoking: Quit Greater Than 1 Year Alcohol Use: None Drug Use: None General Adult HPI: HPI: ".. I ve been having this Lt. side and abdoment pain ... Is running clear down to my my butt and to my leg... Its. bothering me so bad I cannot sleep.. " Patient is a 75 year old female who presents with Lt side flank, and generalized abdomen pain. Pain is localized somewhat to the paralumbar area on the left and follows the sciatic nerve into to left hip and leg. Patient denies any recent falls or trauma. Patient has had some history of chronic back pain. Patient denies any history of fever or chills. No recent travel. No significant ill contacts. No problems with defecation or urination. No history of IV drug use. No history of cancer. Patient rates her pain currently 8 out of 10. Straight leg lift on left exacerbates the flank and hip pain. Patient does have a past medical history of chronic obstructive pulmonary disease, osteoarthritis, pulmonary nodules, constipation and patient continues to smoke. Pt. follows with Dr. Konstantin Mesa. Review of Systems: Review of Systems: Constitutional: Denies fever or chills Eyes: Denies change in visual acuity HENT: Denies nasal congestion or sore throat Respiratory: Denies cough or shortness of breath Cardiovascular: Denies chest pain or edema GI: Complains of left lower abdominal pain and constipation. Patient denies, nausea, vomiting, bloody stools or diarrhea : Denies dysuria Musculoskeletal: Complains of left flank back pain and left hip joint pain Integument: Denies rash Neurologic: Denies headache, focal weakness or sensory changes Endocrine: Denies polyuria or polydipsia Lymphatic: Denies swollen glands Psychiatric: Denies depression or anxiety Family History: Family History: Patient has 4 brothers/sisters one brother of thyroid cancer age 60. Father at 93 and mother at 98. Current Medications: Current Meds: See nursing for home meds Allergies: Allergies: Allergies Coded Allergies Type Severity Reaction Last Updated Verified influenza virus vaccine ts [id number] (36 mos,up) Allergy Intermediate 10/04/18 Yes cyclobenzaprine Allergy Unknown 08/11/19 Yes Physical Exam: PE: Constitutional: Moderate acute distress, non-toxic appearance. [] HENT: Normocephalic, atraumatic, bilateral external ears normal, oropharynx moist, no oral exudates, nose normal. [] Eyes: PERRLA, EOMI, conjunctiva normal, no discharge. [] Neck: Normal range of motion, no tenderness, supple, no stridor. [] Cardiovascular:Heart rate regular rhythm, no murmur [] Lungs & Thorax: Bilateral breath sounds equal at apex with scattered wheezes on auscultation [] Abdomen: Bowel sounds normal, soft, no tenderness, no masses, no pulsatile masses. Old surgical scars. Very distended. Rebound pain to lower left abdomen. Skin: Warm, dry, no erythema, no rash. Poor turgor Back: Marked tenderness along left sciatic nerve root. and some paralumbar muscle spasms particularly on the left. Does have some tenderness on percussion of the left CVA Extremities: Left hip tenderness, no cyanosis, no clubbing, ROM intact, no edema. No cording appreciated. Does have arthritic findings. Neurologic: Alert and oriented X 3, moves all extremities on request, does have distal sensory, no focal deficits noted. [] Psychologic: Affect anxious, judgement normal, mood normal. [] EKG: EKG: My interpretation EKG shows a sinus rhythm at 79 bpm. Does have bimodal P waves in the left leads. Nonspecific QRS contour in the septal region. No findings acute STEMI with contralateral changes [] Radiology/Procedures: Radiology/Procedures: [address] [address] IMAGING REPORT Signed PATIENT: CEM ABARCA ACCOUNT: [id number] : 1945 LOCATION: ER AGE: 75 SEX: F EXAM STATUS: REG ER ORD. PHYSICIAN: JOSE ARMANDO KIM MD REASON: pain, CONSTIPATION SINCE 09/07/2020 PROCEDURE: ACUTE ABDOMEN SERIES Acute Abdominal Series: 09/12/2020 8:41 PM Reason for study: Constipation Comparison studies: Abdominal radiograph 04/13/2019. Technique: Frontal view of the chest was obtained along with supine and upright views of the abdomen. Findings: Nonobstructive bowel gas pattern. No air fluid levels or free air. Mild gaseous distention of the transverse colon and left colon. Moderate amount of stool noted throughout the colon. The lungs are clear without acute consolidative opacity. No pleural effusion or pneumothorax. The cardiac and mediastinal contours are normal. Pulmonary emphysematous changes are present. Visualized osseous structures are intact. IMPRESSION: 1. Mild gaseous distention of the transverse colon and splenic flexure may represent ileus. Moderate amount of stool within the colon suggestive of underlying constipation. 2. No acute cardiopulmonary findings. Pulmonary emphysema. Electronically signed by: Kenya Menchaca MD (09/12/2020 10:31 PM) [facility] DICTATED AND SIGNED BY: KENYA MENCHACA MD DATE: 09/12/202228 CC: JOSE ARMANDO KIM MD; KONSTANTIN MESA MD ~MTH0 0 [][place] [id number] IMAGING REPORT Signed PATIENT: CEM ABARCA ACCOUNT: [id number] : 1945 LOCATION: ER AGE: 75 SEX: F EXAM STATUS: REG ER ORD. PHYSICIAN: JOSE ARMANDO KIM MD REASON: pain PROCEDURE: CT PELVIS WO CONTRAST PQRS Compliance Statement: One or more of the following individualized dose reduction techniques were utilized for this examination: 1. Automated exposure control 2. Adjustment of the mA and/or kV according to patient size 3. Use of iterative reconstruction technique CT LUMBAR SPINE WO, CT PELVIS WO 09/12/2020 8:54 PM Indication: Pain COMPARISON: None available. TECHNIQUE: Multiple axial CT images of the lumbar spine and pelvis were obtained without intravenous contrast. Coronal and sagittal reformats are provided. FINDINGS: There is mild dextro convex curvature of the lumbar spine with apex dextrocurvature at L2-L3. Moderate disc height loss asymmetric to the left at L2-L3 with endplate sclerosis and marginal osteophytosis. There is subtle co ncavity the superior endplate of L3 which appears chronic. There is subtle concavity the superior endplate of L5 which may be chronic. There is no retropulsion. No epidural hematoma. Abdominal aorta is normal in caliber with moderate calcified atheromatous plaque. No suspicious retroperitoneal abnormality is identified. Results portions of the kidneys appear normal. No hydronephrosis. L2-L3: There is a posterior discussed by complex. Mild facet arthropathy. Severe left and moderate right neuroforaminal stenosis. Mild spinal canal stenosis. L3-L4: There is a circumferential disc bulge. Moderate right and mild left facet arthropathy. Moderate bilateral neuroforaminal stenosis. Mild spinal canal stenosis. L4-L5: There is a disc bulge asymmetric to the right. Moderate facet arthropathy, right greater than left. Severe right and moderate left neuroforaminal stenosis. Mild spinal canal stenosis. L5-S1: There is a posterior disc osteophyte complex. Moderate facet arthropathy. There is mild to moderate bilateral neuroforaminal stenosis. No spinal canal stenosis. Pelvis: Sacrum is intact. Sacroiliac joints are well aligned. No acute fracture of the iliac bones. No lytic or blastic osseous lesion is identified. Acetabula are intact. Superior and inferior pubic rami are intact. Proximal femora are intact without acute fracture. Mild femoral acetabular osteoarthrosis. No intramuscular hematoma. There is high attenuation small volume pelvic free fluid, nonspecific. IMPRESSION: Mild lumbar spondylosis. Superior plate concavity at L3 and L5 without significant height loss. Correlate with point tenderness. There is persistent clinical concern, further evaluation with MRI lumbar spine may be of benefit to assess acuity. Small volume high attenuation pelvic free fluid is nonspecific. This could represent unopacified small bowel loops. If there is persistent clinical concern, further evaluation. CT pelvis with oral contrast could be of benefit. Electronically signed by: Kenya Menchaca MD (09/12/2020 9:46 PM) [facility] DICTATED AND SIGNED BY: KENYA MENCHACA MD DATE: 09/12/202134 CC: JOSE ARMANDO KIM MD; KONSTANTIN MESA MD ~MTH0 0 Heart Score: C/O Chest Pain: N/A HEART Score for Chest Pain: HEART Score for Chest Pain Response (Comments) Value History Moderately Suspicious 1 ECG Nonspecific Repolarizatio 1 Age > 65 2 Risk Factors 1 or 2 Risk Factors 1 Troponin < Normal Limit 0 Total 5 Risk Factors: Risk Factors: DM, Current or recent (<one month) smoker, HTN, HLP, family history of CAD, obesity. Risk Scores: Score 0 - 3: 2.5% MACE over next 6 weeks - Discharge Home Score 4 - 6: 20.3% MACE over next 6 weeks - Admit for Clinical Observation Score 7 - 10: 72.7% MACE over next 6 weeks - Early Invasive Strategies Course & Med Decision Making: Course & Med Decision Making Pertinent Labs and Imaging studies reviewed. (See chart for details) Patient to use ice packs as needed. Follow-up with primary care. Recommend follow-up with neurosurgery. May be a candidate for physical therapy. For marked pain may take Vicoprofen up to 4 times a day. Recommend patient be on a clear fluid diet for the next couple days with no solids or milk products. Reexam if no improvement. Does have significant findings of constipation. Pain meds may also exacerbate the constipation. Patient return if any concerns. Patient keep follow-up with Dr. Mesa. Impression: 1. Sciatic exacerbation on left 2. Multilevel arthropathic withn neuro foraminal stenosis and canal stenosis.- Lumbar region 3. History of COPD 4. Constipation [] Dragon Disclaimer: Dragon Disclaimer: This electronic medical record was generated, in whole or in part, using a voice recognition dictation system. Departure Departure: Referrals: KONSTANTIN MESA MD (PCP) Scripts Hydrocodone/Ibuprofen (HYDROCODONE-IBUPROFEN 7.5-200 ) 1 Each Tablet 1 TAB PO PRN Q6HRS PRN for PAIN, #30 TAB 0 Refills Prov: JOSE ARMANDO KIM MD 09/12/20 Dragon Disclaimer This chart was dictated in whole or in part using Voice Recognition software in a busy, high-work load, and often noisy Emergency Department environment. It may contain unintended and wholly unrecognized errors or omissions. JOSE ARMANDO KIM MD Sep 12, 2020 20:16
[2020-09-12] MEDS ORDERED: ONDANSETRON PF 4 MG/2 ML VIAL. IVP ONE (20:30)
[2020-09-12] MEDS ORDERED: IV RINGERS SOLUTION,LACTATED 1,000 ML IV SCH (20:30)
[2020-09-12] MEDS ORDERED: FAMOTIDINE 20 MG/2 ML VIAL IVP ONE (20:30)
[2020-09-12] MEDS ORDERED: KETOROLAC 30 MG/ML VIAL. IVP ONE (20:30)
[2020-09-12] MEDS ORDERED: methylPREDNISolone ACETATE 40 MG/ML VIAL. IM ONE (21:00)
[2020-09-12] MEDS ORDERED: MORPHINE SULFATE 10 MG/ML SYRINGE. SQ ONE (21:00)
[2020-09-12 21:11] LABS: BACTERIA,URINE 0 /HPF (0-FEW); BILIRUBIN,URINE NEG (NEG); CLARITY,URINE CLEAR; COLOR,URINE YELLOW; GLUCOSE,URINE NEG (NEG); NITRITE,URINE NEG (NEG); RBC,URINE 0 /HPF (0-2); SQUAMOUS EPITHELIAL CELL,UR OCC /LPF; UROBILINOGEN,URINE 0.2 mg/dL (0.2 mg/dL); WBC,URINE OCC /HPF (0-4)
[2020-09-12 21:43] LABS: BASO % 1 % (0-3); EOS % 1 % (0-3); HEMATOCRIT 40.9 % (36.0-47.0); HEMOGLOBIN 13.6 g/dL (12.0-15.5); LYMPH # 1.5 x10^3/uL (1.0-4.8); LYMPH % 19 % (24-48); MEAN CORPUSCULAR HEMOGLOBIN 31 pg (25-35); MEAN CORPUSCULAR HGB CONC 33 g/dL (31-37); MEAN CORPUSCULAR VOLUME 92 fL (79-100); MONO # 0.7 x10^3/uL (0.0-1.1); MONO % 9 % (0-9); NEUT # 5.4 x10^3uL (1.8-7.7); NEUT % 70 % (31-73); PLATELET COUNT 224 x10^3/uL (140-400); RED BLOOD COUNT 4.44 x10^6/uL (3.50-5.40); RED CELL DISTRIBUTION WIDTH 13.1 % (11.5-14.5); WHITE BLOOD COUNT 7.7 x10^3/uL (4.0-11.0)
[2020-09-12 21:48] VITALS: BP 102/62
--- NOTE | 2020-09-12 21:49 | RAD ---
PQRS Compliance Statement: One or more of the following individualized dose reduction techniques were utilized for this examinat ion: 1. Automated exposure control 2. Adjustment of the mA and/or kV according to patient size 3. Use of iterative reconstruction technique CT LUMBAR SPINE WO, CT PELVIS WO 09/12/2020 8:54 PM Indication: Pain COMPARISON: None available. TECHNIQUE: Multiple axial CT images of the lumbar spine and pelvis were obtained without intravenous contrast. Coronal and sagittal reformats are provided. FINDINGS: There is mild dextro convex curvature of the lumbar spine with apex dextrocurvature at L2-L3. Moderat e disc height loss asymmetric to the left at L2-L3 with endplate sclerosis and marginal osteophytosis . There is subtle concavity the superior endplate of L3 which appears chronic. There is subtle concav ity the superior endplate of L5 which may be chronic. There is no retropulsion. No epidural hematoma. Abdominal aorta is normal in caliber with moderate calcified atheromatous plaque. No suspicious retr operitoneal abnormality is identified. Results portions of the kidneys appear normal. No hydronephros is. L2-L3: There is a posterior discussed by complex. Mild facet arthropathy. Severe left and moderate ri ght neuroforaminal stenosis. Mild spinal canal stenosis. L3-L4: There is a circumferential disc bulge. Moderate right and mild left facet arthropathy. Moderat e bilateral neuroforaminal stenosis. Mild spinal canal stenosis. L4-L5: There is a disc bulge asymmetric to the right. Moderate facet arthropathy, right greater than left. Severe right and moderate left neuroforaminal stenosis. Mild spinal canal stenosis. L5-S1: There is a posterior disc osteophyte complex. Moderate facet arthropathy. There is mild to mod erate bilateral neuroforaminal stenosis. No spinal canal stenosis. Pelvis: Sacrum is intact. Sacroiliac joints are well aligned. No acute fracture of the iliac bones. No lytic or blastic osseous lesion is identified. Acetabula are intact. Superior and inferior pubic rami are i ntact. Proximal femora are intact without acute fracture. Mild femoral acetabular osteoarthrosis. No intramuscular hematoma. There is high attenuation small volume pelvic free fluid, nonspecific. IMPRESSION: Mild lumbar spondylosis. Superior plate concavity at L3 and L5 without significant height loss. Corre late with point tenderness. There is persistent clinical concern, further evaluation with MRI lumbar spine may be of benefit to assess acuity. Small volume high attenuation pelvic free fluid is nonspecific. This could represent unopacified smal l bowel loops. If there is persistent clinical concern, further evaluation. CT pelvis with oral contr ast could be of benefit. Electronically signed by: Corry Hudson MD (09/12/2020 9:46 PM) [facility]
[2020-09-12 21:51] LABS: CALCIUM 9.4 mg/dL (8.5-10.1); CREATININE 0.7 mg/dL (0.6-1.0); GFR 81.6; POTASSIUM 4.2 mmol/L (3.5-5.1)
[2020-09-12 21:58] LABS: ALBUMIN 4.4 g/dL (3.4-5.0); DIRECT BILIRUBIN 0.1 mg/dL (0.0-0.2); TOTAL BILIRUBIN 0.5 mg/dL (0.2-1.0); TOTAL PROTEIN 6.5 g/dL (6.4-8.2)
--- NOTE | 2020-09-12 22:33 | RAD ---
Acute Abdominal Series: 09/12/2020 8:41 PM Reason for study: Constipation Comparison studies: Abdominal radiograph 04/13/2019. Technique: Frontal view of the chest was obtained along with supine and upright views of the abdomen. Findings: Nonobstructive bowel gas pattern. No air fluid levels or free air. Mild gaseous distention of the tra nsverse colon and left colon. Moderate amount of stool noted throughout the colon. The lungs are clear without acute consolidative opacity. No pleural effusion or pneumothorax. The car diac and mediastinal contours are normal. Pulmonary emphysematous changes are present. Visualized osseous structures are intact. IMPRESSION: 1. Mild gaseous distention of the transverse colon and splenic flexure may represent ileus. Moderate amount of stool within the colon suggestive of underlying constipation. 2. No acute cardiopulmonary findings. Pulmonary emphysema. Electronically signed by: Corry Hudson MD (09/12/2020 10:31 PM) [facility]
[2020-09-12] MEDS ORDERED: HYDR-1179 PO (23:44)
[2020-09-12] MEDS ORDERED: MAGNESIUM HYDROXIDE 2,400 MG/30 ML ORAL.SUSP. PO ONE (23:45)
[2020-09-13] MEDS ORDERED: diphenhydrAMINE HCL 25 MG CAPSULE PO ONE (00:15)
--- NOTE | 2020-09-13 06:21 | EKG ---
[address] [address] Test Date: 2020-09-12 Test Time: 21:21:28 Pat Name: CEM ABARCA Department: Room: Gender: F Foot Doctor: : 1945 Requested By: JOSE ARMANDO KIM Order Number: [id number] Reading MD: Measurements Intervals [place] Rate: 79 P: 90 PA: 164 QRS: 74 QRSD: 82 T: 52 QT: 386 QTc: 449 Interpretive Statements SINUS RHYTHM LEFT ATRIAL ABNORMALITY QRS(T) CONTOUR ABNORMALITY CONSISTENT WITH ANTEROSEPTAL INFARCT AGE UNDETERMINED ABNORMAL ECG RI6.02 No previous ECG available for comparison
== END 2020-09-13 00:20 | disposition home or self-care (01) ==
LOC: ER 20:12
DX: K59.00 Constipation, unspecified (principal); M54.42 Lumbago with sciatica, left side; J44.9 Chronic obstructive pulmonary disease, unspecified; M48.061 Spinal stenosis, lumbar region without neurogenic claudication; Z87.891 Personal history of nicotine dependence; Z88.7 Allergy status to serum and vaccine; Z88.8 Allergy status to other drugs, medicaments and biological substances
CPT/HCPCS: 36415; 72131; 72192; 74022; 80048; 80076; 81001; 82150; 82550; 83690; 84484; 85025; 85610; 85730; 93005; 96361; 96372; 96374; 96375; 99285; J1030; J1885; J2405; J7120; Q0163

== ENCOUNTER 2020-12-23 07:48 | Emergency (ER) | payer MEDICARE ==
[~2020-12-23] VITALS: Ht 162.6 cm; Wt 49.7 kg
[~2020-12-23 07:48] MED LIST changes: +HYDR-1179 PO
[2020-12-23] MEDS ORDERED: IPRATRPIUM/ALBUTEROL 0.5/2.5MG 3 ML NEBU. NEB ONE ×2 (08:00→10:00)
[2020-12-23] MEDS ORDERED: DEXAMETHASONE SOD PHOS 10 MG/ML VIAL. IM ONE (08:00)
--- NOTE | 2020-12-23 08:54 | RAD ---
EXAM: Chest, single view. HISTORY: Short of breath. COMPARISON: 07/03/2020 FINDINGS: A frontal view of the chest is obtained. There is hyperinflation due to emphysema. There is blunting of the costophrenic angles due to large lung volumes. There is no pleural effusion or pneum othorax. The heart is normal in size. IMPRESSION: Emphysema. No acute pulmonary finding. Electronically signed by: Bozena Ambrose MD (12/23/2020 8:51 AM) [id number]
[2020-12-23 09:46] VITALS: BP 99/68
[2020-12-23] MEDS ORDERED: PRED50TA PO (10:48)
--- NOTE | 2020-12-23 10:49 | PHYS DOC ---
Past History Past Medical History: Anxiety, Arthritis, Bronchitis, Constipation, COPD, Sciatica Past Surgical History: Tonsillectomy Smoking: Quit Greater Than 1 Year Alcohol Use: None Drug Use: None Adult General Chief Complaint Chief Complaint: SHORTNESS OF BREATH [facility] HPI Patient is a 75-year-old female with past medical history of COPD who presents to the emergency room complaining of shortness of breath. Patient states that over the last 4 to 5 days she has had increased shortness of breath. She feels like she is in a COPD exacerbation. She has had these several times in the past. Her last one was in September. She states that she did a breathing treatment right before coming which helped some. She denies any fever, productive cough, chest pain. She has had a Covid vaccines. She describes diffuse tingling that started shortly after arriving here in the emergency room. Review of Systems Review of Systems Complete ROS is negative unless otherwise documented in HPI Current Medications Current Medications Current Medications Medications (Trade) Dose Ordered Sig/Amanda Start Time Stop Time Status Last Admin Dose Admin Albuterol/ Ipratropium (Duoneb) 3 ml 1X ONCE 12/23/20 10:00 12/23/20 10:01 DC 12/23/20 10:17 3 ML Dexamethasone Sodium Phosphate (Decadron) 10 mg 1X ONCE 12/23/20 08:00 12/23/20 08:03 DC 12/23/20 08:22 10 MG Allergies Allergies Allergies Coded Allergies Type Severity Reaction Last Updated Verified influenza virus vaccine ts [id number] (36 mos,up) Allergy Intermediate 10/04/18 Yes cyclobenzaprine Allergy Unknown 08/11/19 Yes Physical Exam Physical Exam General: Awake, alert, NAD. Well Nourished, well hydrated. Cooperative HEENT: Atraumatic, EOMI, PERRL, airway patent, moist oral mucosa Neck: Supple, trachea midline Respiratory: Decreased breath sounds bilaterally, wheezing at the bases, tachypnea CV: RRR, no murmur, cap refill <2 GI: Soft, nondistended, nontender, no masses MSK: No obvious deformities Skin: Warm, dry, intact Neuro: A&O x3, speech NL, sensory and motor grossly intact, no focal deficits Psych: Normal affect, normal mood, not suicidal or homicidal Current Patient Data Vital Signs Vital Signs Date Time Temp Pulse Resp B/P (MAP) Pulse Ox O2 Delivery O2 Flow Rate FiO2 12/23/20 09:46 101 20 99/68 (78) 97 Room Air 12/23/20 07:50 98.3 EKG EKG [] Radiology/Procedures Radiology/Procedures [] Heart Score C/O Chest Pain: N/A Risk Factors: Risk Factors: DM, Current or recent (<one month) smoker, HTN, HLP, family histo ry of CAD, obesity. Risk Scores: Risk Factors: DM, Current or recent (<one month) smoker, HTN, HLP, family history of CAD, obesity. Course & Med Decision Making Course & Med Decision Making Pertinent Labs and Imaging studies reviewed. (See chart for details) Patient is a 75-year-old female with past medical history of COPD who presents to the emergency room and exacerbation. Patient states that she does not want any lab work done. She does not want an IV. Patient was given a shot of Decadron and 2 breathing treatments. Patient had full resolution of her symptoms and would like to go home. Chest x-ray is negative for pneumonia. She is very well-appearing on exam. We will place her on steroids. Patient's test results and vitals while in the ED were fully reviewed and discussed with the patient. Patient is stable and at this time does not need admission to the hospital. We have discussed strict return precautions and the importance of following up with their Primary Care Physician. Patient stated understanding and was given an opportunity to ask any questions. Patient is in agreement with plan. Dragon Disclaimer Dragon Disclaimer This electronic medical record was generated, in whole or in part, using a voice recognition dictation system. Departure Departure: Impression: Primary Impression: COPD exacerbation Disposition: HOME / SELF CARE / HOMELESS Condition: STABLE Referrals: TOM ROPER MD (PCP) Patient Instructions: Chronic Obstructive Pulmonary Disease Exacerbation Scripts Prednisone (PREDNISONE) 50 Mg Tablet 1 TAB PO DAILY for copd, #5 TAB You received this medication in the emergency room today. You will starting your next dose tomorrow. Prov: CLEMENTE GRUBER MD 12/23/20 CLEMENTE GRUBER MD Dec 23, 2020 10:49
== END 2020-12-23 10:55 | disposition home or self-care (01) ==
LOC: ER 07:48
DX: J44.1 Chronic obstructive pulmonary disease with (acute) exacerbation (principal); Z23 Encounter for immunization; Z87.891 Personal history of nicotine dependence
CPT/HCPCS: 71045; 94640; 96372; 99283; J1100

== ENCOUNTER → 2021-01-25 | Outpatient (CLI) | payer MEDICARE ==
--- NOTE | 2021-01-25 11:03 | RAD ---
EXAM: CT Chest without IV contrast CLINICAL HISTORY: Reason: FOLLOW UP LUNG NODULE / Spl. Instructions: / History: COMPARISON: 01/25/2020 04/08/2019 TECHNIQUE: CT of the chest without intravenous contrast. Axial, coronal and sagittal reformatted imag es were generated. ---PQRS compliance statement - One or more of the following individualized dose reduction techniques were utilized for this study: 1. Automated exposure control 2. Adjustment of the mA and/or kV according to patient size 3. Use of iterative reconstruction technique--- FINDINGS: Lack of intravenous contrast limits evaluation of solid organs, vasculature, and lymph nodes. Chest: Calcified nodules are seen within the thyroid. No axillary lymphadenopathy. Evaluation for mediastina l and hilar lymphadenopathy is limited given lack of IV contrast. Spiculated 2 x 1.7 cm right lower lobe lung nodule is seen, new compared to prior CT 01/25/2020. 4 mm right lower lobe satellite lung nodule (series 2 image 166) is seen. Emphysematous changes are seen. No pleural effusion. No pneumothorax. Visualized Upper abdomen: Unremarkable Bones: No aggressive osseous lesion is seen. Degenerative changes of the spine are seen. IMPRESSION: 1. 2 cm right lower lobe spiculated lung nodule is highly suspicious for malignancy. Histopathologic correlation and/or PET evaluation is recommended. 2. 4 mm right lower lobe satellite lung nodule is nonspecific. 3. Evaluation for mediastinal and hilar lymphadenopathy is limited. 4. Emphysematous changes are seen. Electronically signed by: Ruddy Lebron MD (01/25/2021 11:00 AM) [id number]
== END ==
LOC: CT 08:20
PROVIDERS: ATTEND Internal Medicine Pulmonary Disease
DX: R91.8 Other nonspecific abnormal finding of lung field (principal); J43.9 Emphysema, unspecified; M47.819 Spondylosis without myelopathy or radiculopathy, site unspecified; E04.2 Nontoxic multinodular goiter
CPT/HCPCS: 71250

== ENCOUNTER → 2021-04-26 | Outpatient (CLI) | payer MEDICARE ==
[~2021-04-26] MED LIST changes: -CYCL-331 PO; +CYCL10TA19 PO; +IOHEXOL 300 MG/ML 75 ML VIAL. IV ONE; +POTA-121 PO; -POTA20TA4 PO
[2021-04-26 08:36] LABS: CREATININE 0.7 mg/dL (0.6-1.0); GFR 81.4
--- NOTE | 2021-04-26 09:50 | RAD ---
EXAM: Chest CT with intravenous contrast. HISTORY: Pulmonary nodule. TECHNIQUE: Computed tomographic images of the chest were obtained with contrast. Multiplanar reformat ting was performed. *One or more of the following individualized dose reduction techniques were utilized for this examina tion: 1. Automated exposure control. 2. Adjustment of the mA and/or kV according to patient size. 3. Use of iterative reconstruction technique. COMPARISON: 01/25/2021, 01/25/2020, 04/08/2019. FINDINGS: There has been interval progression of a spiculated right lower lobe nodule measuring 2.4 x 2.1 cm in maximum transaxial dimensions. There is a vessel traversing through this nodule and efface ment of the traversing bronchi. There is no pneumothorax or pleural effusion. There is emphysema. The heart is normal in size. The aorta is normal in caliber. There is calcification of the aortic enriqueta ve. There are enlarged mediastinal and right hilar lymph nodes. For reference purposes, there is a ri ght paratracheal lymph node or conglomerate of lymph nodes measuring 1.7 cm and there is a dominant r ight hilar lymph node measuring 1.9 cm. These are increased compared to the prior exam. There is a heterogeneous thyroid containing multiple nodules, the largest of which is partially calci fied within the left thyroid lobe measuring 1.9 cm. There are few suspected tiny hepatic cysts, not f ormally assessed on this exam. There are degenerative changes involving the spine. There is bone jian neralization. IMPRESSION: 1. Progressive interval increase in the size of a spiculated right lower lobe nodule measuring 2.4 cm , the appearance of which favors a primary bronchogenic neoplasm. 2. Progressive mediastinal and right hilar lymphadenopathy, concerning for metastatic disease. 3. Emphysema. 4. Heterogeneous thyroid containing a dominant left sided nodule. This can be better assessed with a thyroid sonogram. Electronically signed by: Bozena Ambrose MD (04/26/2021 9:48 AM) [id number]
== END | disposition home or self-care (01) ==
LOC: CT 08:03
PROVIDERS: ATTEND Internal Medicine Pulmonary Disease
DX: R91.8 Other nonspecific abnormal finding of lung field (principal); J43.9 Emphysema, unspecified; E04.2 Nontoxic multinodular goiter; I35.8 Other nonrheumatic aortic valve disorders; R59.0 Localized enlarged lymph nodes; M47.814 Spondylosis without myelopathy or radiculopathy, thoracic region
CPT/HCPCS: 36415; 71260; 82565; 84520; Q9967

== ENCOUNTER 2021-05-17 09:40 | Emergency (ER) | payer MEDICARE ==
[~2021-05-17] VITALS: Ht 162.6 cm; Wt 45.5 kg
[~2021-05-17 09:40] MED LIST changes: -IOHEXOL 300 MG/ML 75 ML VIAL. IV ONE
--- NOTE | 2021-05-17 10:12 | PHYS DOC ---
Past History Past Medical History: Anxiety, Arthritis, Bronchitis, Constipation, COPD, Sciatica (LANDY DOE APRN) Past Surgical History: Tonsillectomy (LANDY DOE APRN) Smoking: Quit Greater Than 1 Year Alcohol Use: None Drug Use: None (LANDY DOE APRN) Adult General Chief Complaint Chief Complaint: SHORTNESS OF BREATH HPI HPI Patient is a 75-year-old female presents to the emergency department complaining of slowly increasing shortness of breath for the past 4 days. Patient reports a history of COPD, states this feels like her normal COPD exacerbation that she has had several times in the past and comes to the emergency department for a steroid shot and 1 or 2 breathing treatments to help her. Patient reports she does home breathing treatments which helped some. Patient reports she is currently on 30 mg of prednisone on a de-escalating dose prescribed by her primary care physician Dr. Mesa. Patient denies fevers or chills, denies cough or chest pains. Reports she has received the COVID-19 vaccination series. Denies other physical complaints or physical concerns. Patient reports she was on her way for a doctor's appointment to see her heel layer Dr. Carrillo to discuss having a biopsy of the nodule on her lung that is being closely followed when she felt she needed to come to the emergency department to get a steroid shot and some breathing treatments. (LANDY DOE APRN) Review of Systems Review of Systems 14 body systems of review of systems have been reviewed. See HPI for pertinent positives and negative responses, otherwise all other systems are negative, nonpertinent or noncontributory. Constitutional: Negative except as outlined in HPI above. Skin: Negative except as outlined in HPI above. Eyes: Negative except as outlined in HPI above. HENT: Negative except as outlined in HPI above. Respiratory: Negative except as outlined in HPI above. Cardiovascular: Negative except as outlined in HPI above. GI: Negative except as outlined in HPI above. : Negative except as outlined in HPI above. Musculoskeletal: Negative except as outlined in HPI above. Integument: Negative except as outlined in HPI above. Neurologic: Negative except as outlined in HPI above. Endocrine: Negative except as outlined in HPI above. Lymphatic: Negative except as outlined in HPI above. Psychiatric: Negative except as outlined in HPI above. (LANDY DOE APRN) Current Medications Current Medications Current Medications Medications (Trade) Dose Ordered Sig/Amanda Start Time Stop Time Status Last Admin Dose Admin Albuterol/ Ipratropium (Duoneb) 3 ml 1X ONCE 05/17/21 10:15 05/17/21 10:16 UNV Methylprednisolone Sodium Succinate (SOLU-Medrol 125MG VIAL) 125 mg 1X ONCE 05/17/21 10:15 05/17/21 10:16 UNV (LANDY DOE APRN) Allergies Allergies Allergies Coded Allergies Type Severity Reaction Last Updated Verified influenza virus vaccine ts [id number] (36 mos,up) Allergy Intermediate 05/17/21 Yes cyclobenzaprine Allergy Unknown 05/17/21 Yes (LANDY DOE APRN) Physical Exam Physical Exam Constitutional: Well developed, well nourished, mild respiratory distress, non- toxic appearance. 76-year-old female in mild respiratory distress otherwise is nontoxic in appearance. HENT: Normocephalic, atraumatic. Patient speaking in full sentences. Eyes: Conjunctiva normal, no discharge. Neck: Normal range of motion, no stridor. Cardiovascular: No cyanosis appreciated, distal cap refill less than 2 seconds. Regular rate and rhythm. Lungs & Thorax: Patient is in no respiratory distress, no audible adventitious lung sounds appreciated. Decreased lung sounds bilateral bases, no wheezing a ppreciated per auscultation, tachypneic. Abdomen: Nontender, no abnormalities noted. Skin: Warm, dry, no erythema, no rash. Back: No tenderness, no deformities. Extremities: No tenderness, no cyanosis, no clubbing, ROM intact, no edema. Neurologic: Alert and oriented X 3, normal motor function, normal sensory function, no focal deficits noted. Psychologic: Affect normal, judgement normal, mood normal. (LANDY DOE APRN) Current Patient Data Vital Signs Vital Signs Date Time Temp Pulse Resp B/P (MAP) Pulse Ox O2 Delivery O2 Flow Rate FiO2 05/17/21 09:46 98.2 80 20 130/63 (85) 94 Room Air (LANDY DOE APRN) EKG EKG [] (LANDY DOE APRN) Radiology/Procedures Radiology/Procedures REASON: Shortness of breath, COPD PROCEDURE: CHEST PA & LATERAL Chest radiograph 05/17/2021 10:05 AM INDICATION: Shortness of breath, COPD COMPARISON: 12/23/2020 TECHNIQUE: Frontal and lateral views of the chest are provided. FINDINGS: The cardiomediastinal silhouette is within normal limits. Hyperexpansion of the lungs suggestive of air trapping. Pulmonary emphysematous changes. 2.7 cm right hilar soft tissue nodule stable from CT 04/26/2021, progressed since 12/23/2020 chest radiograph. There are no pleural effusions. There is no pulmonary vascular congestion. There is no pneumothorax. The lungs are clear. No significant osseous abnormality is identified. IMPRESSION: There is a 2.7 cm right hilar soft tissue nodule, increased in size as compared to 12/23/2020, however is similar in size and compared to the CT chest from 04/26/2021. No new airspace consolidation. COPD changes are present. Electronically signed by: Corry Hudson MD (05/17/2021 10:24 AM) [id number] (LANDY DOE APRN) Heart Score C/O Chest Pain: No Risk Factors: Risk Factors: DM, Current or recent (<one month) smoker, HTN, HLP, family history of CAD, obesity. Risk Scores: Risk Factors: DM, Current or recent (<one month) smoker, HTN, HLP, family history of CAD, obesity. (LANDY DOE APRN) Course & Med Decision Making Course & Med Decision Making Pertinent Labs and Imaging studies reviewed. (See chart for details) 75-year-old female, vital signs reviewed, presents to the emergency department requesting steroids and breathing treatments for COPD exacerbation. Patient reports this is a normal flareup for her and does not wish to have serum lab work performed today. Patient states she does not want an IV. Physical presentation is consistent with mild exacerbation of COPD. Will give Solu- Medrol 125 mg IM injection, DuoNeb treatment, will reevaluate after period of time. After period of time, patient reports she is feeling much better and would like 1 more breathing treatment before going home. Patient's physical exam is i mproving, patient is no longer tachypneic. Will order albuterol nebulizer treatment. After second nebulizer treatment, patient is in no apparent distress, lung sounds remain diminished in bases however no other adventitious lung sounds present per auscultation. The patient is not hypoxic, she is no longer tachypneic, has no physical complaints at this time. The patient's chest x-ray is negative for pneumonia. There is a lung nodule that the patient is aware of and is closely followed by unattended ground sensor specialist Dr. Carrillo. Patient is on current de-escalating dose of prednisone, will discuss keeping on same dosing and keeping all future appointments with unattended ground sensor specialist and primary care provider. Patient is well appearing on discharge examination. The patient is stable at discharge and does not require admission to the hospital. Discussed strict return to ER precautions and concerns, patient gave verbal understanding of and is amenable to ED discharge planning. Discussed with the patient all findings and diagnostic testing as well as the need to follow-up with their primary care provider for further evaluation and treatment or return to the ED if any new or worsening symptoms. Strict return precautions were also discussed at length, the patient voiced understanding and agreement with the discharge planning. The patient was nontoxic in appearance, in no apparent distress, and hemodynamically stable at the time of disposition. (LANDY DOE APRN) Dragon Disclaimer Dragon Disclaimer This electronic medical record was generated, in whole or in part, using a voice recognition dictation system. (LANDY DOE APRN) Attending Co-Sign The patient was seen and interviewed as well as examined at the bedside. The chart was reviewed. The case was discussed. Agree with the plan of care. (HERBERT ROCHA DO) Departure Departure: Impression: Primary Impression: COPD exacerbation Disposition: 01 HOME / SELF CARE / HOMELESS Condition: GOOD Referrals: TOM MESA MD (PCP) Patient Instructions: Chronic Obstructive Pulmonary Disease Exacerbation Additional Instructions: You were seen today in the emergency department for an exacerbation of your COPD. Your chest x-ray did not show any concerning findings of pneumonia. You were treated today in the emergency department with an intramuscular injection of Solu-Medrol 125 mg, 1 DuoNeb treatment of ipratropium bromide/albuterol, and an additional albuterol only breathing treatment. Your symptoms resolved very well. I am starting you on an additional dosing of prednisone, 50 mg a day for the next 5 days, then resume with your de-escalating dose of prednisone. Please keep all your future appointments with your unattended ground sensor specialist and your primary care provider, return to the emergency department for worsening symptoms or other concerns. EMERGENCY DEPARTMENT GENERAL DISCHARGE INSTRUCTIONS Thank you for coming to [facility] (ED) today and trusting us with you care. We trust that you had a positivie experience in our Emergency Department. If you wish to speak to the department management, you may call the director at [phone]. YOUR FOLLOW UP INSTRUCTIONS ARE FOLLOWS: 1. Do you have a private Doctor? If you do not have a private doctor, please ask for a resource list of physicians or clinics that may be able to assist you with follow up care. 2. The Emergency Physician has interpreted your x-rays. The X-Ray specialist will also review them. If there is a change in the findings, you will be notified in 48 hours when at all possible. 3. A lab test or culture has been done, your results will be reviewed and you will be notified if you need a change in treatment. ADDITIONAL INSTRUCTIONS AND INFORMATION: 1. Your care today has been supervised by a physician who is specially trained in emergency care. Many problems require more than one evaluation for a complete diagnosis and treatment. We recommend that you schedule your follow up appointment as recommended to ensure complete treatment of you illness or injury. If you are unable to obtain follow up care and continue to have a problem, or if your condition worsens, we recommend that you return to the ED. 2. We are not able to safely determine your condition over the phone nor are we able to give sound medical advice over the phone. For these safety reasons, if you call for medical advice we will ask you to come to the ED for further evaluation. 3. If you have any questions regarding these discharge instructions please call the ED at [phone]. SAFETY INFORMATION: In the interest of safety, wellness, and injury prevention; we encourage you to wear your sealbelt, if you smoke; quite smoking, and we encourage family to use a protective helmet for bicycling and other sporting events that present an increased risk for head injury. IF YOUR SYMPTOMS WORSEN OR NEW SYMPTOMS DEVELOP, OR YOU HAVE CONCERNS ABOUT YOUR CONDITION; OR IF YOUR CONDITION WORSENS WHILE YOU ARE WAITING FOR YOUR FOLLOW UP APPOINTMENT; EITHER CONTACT YOUR PRIMARY CARE DOCTOR, THE PHYSICIAN WHOSE NAME AND NUMBER YOU WERE GIVEN, OR RETURN TO THE ED IMMEDIATELY. Scripts Prednisone (PREDNISONE) 50 Mg Tablet 1 TAB PO DAILY for copd exacerbation, #5 TAB 0 Refills Prov: LANDY DOE APRN 05/17/21 LANDY DOE APRN May 17, 2021 10:12 HERBERT ROCHA DO May 19, 2021 10:52
[2021-05-17] MEDS ORDERED: IPRATRPIUM/ALBUTEROL 0.5/2.5MG 3 ML NEBU. NEB ONE (10:15)
[2021-05-17] MEDS ORDERED: methylPREDNISolone SOD SUCC PF 125 MG/2 ML VIAL. IM ONE (10:15)
--- NOTE | 2021-05-17 10:26 | RAD ---
Chest radiograph 05/17/2021 10:05 AM INDICATION: Shortness of breath, COPD COMPARISON: 12/23/2020 TECHNIQUE: Frontal and lateral views of the chest are provided. FINDINGS: The cardiomediastinal silhouette is within normal limits. Hyperexpansion of the lungs suggestive of a ir trapping. Pulmonary emphysematous changes. 2.7 cm right hilar soft tissue nodule stable from CT , progressed since 12/23/2020 chest radiograph. There are no pleural effusions. There is no pulmonary vascular congestion. There is no pneumothorax. The lungs are clear. No significant osseous abnormality is identified. IMPRESSION: There is a 2.7 cm right hilar soft tissue nodule, increased in size as compared to 12/23/2020, however is similar in size and compared to the CT chest from 04/26/2021. No new airspace consolidation. COPD changes are present. Electronically signed by: Corry Hudson MD (05/17/2021 10:24 AM) [id number]
[2021-05-17] MEDS ORDERED: ALBUTEROL SULFATE 2.5 MG/3 ML NEBU. NEB ONE (11:30)
[2021-05-17 11:43] VITALS: BP 107/68
[2021-05-17] MEDS ORDERED: PRED50TA PO (12:23)
== END 2021-05-17 12:33 | disposition home or self-care (01) ==
LOC: ER 09:40
DX: J44.1 Chronic obstructive pulmonary disease with (acute) exacerbation (principal); M19.90 Unspecified osteoarthritis, unspecified site; F41.9 Anxiety disorder, unspecified; Z87.891 Personal history of nicotine dependence; Z88.7 Allergy status to serum and vaccine; Z88.8 Allergy status to other drugs, medicaments and biological substances
CPT/HCPCS: 71046; 94640; 96372; 99284; J2930; J7613

== ENCOUNTER 2021-08-16 10:08 | Emergency (ER) | payer MEDICARE ==
[~2021-08-16] VITALS: Ht 160 cm; Wt 44.5 kg
--- NOTE | 2021-08-16 10:21 | PHYS DOC ---
Past History Past Medical History: Anxiety, Arthritis, Bronchitis, Constipation, COPD, Sciatica Past Surgical History: Tonsillectomy Smoking: Quit Greater Than 1 Year Alcohol Use: None Drug Use: None General Adult HPI: HPI: Patient is a 76-year-old female coming in for COPD exacerbation. Patient has a difficult time catching her breath. Had used a DuoNeb device this morning. She is a history of COPD and lung cancer. Has a baseline cough. Denies any fevers or GI complaints. Denies chest pain. Review of Systems: Review of Systems: All other systems within normal limits except for as noted in the HPI Current Medications: Current Meds: Current Medications Medications (Trade) Dose Ordered Sig/Amanda Start Time Stop Time Status Last Admin Dose Admin Albuterol/ Ipratropium (Duoneb) 3 ml 1X ONCE 08/16/21 10:30 08/16/21 10:31 UNV Methylprednisolone Sodium Succinate (SOLU-Medrol 125MG VIAL) 125 mg 1X ONCE 08/16/21 10:30 08/16/21 10:31 UNV Allergies: Allergies: Allergies Coded Allergies Type Severity Reaction Last Updated Verified influenza virus vaccine ts [id number] (36 mos,up) Allergy Intermediate 05/17/21 Yes cyclobenzaprine Allergy Unknown 05/17/21 Yes Physical Exam: PE: Constitutional: Well developed, well nourished, mild acute distress HENT: Normocephalic, atraumatic, bilateral external ears normal, nose normal. [] Eyes: PERRLA, conjunctiva normal, no discharge. [] Neck: No rigidity, supple, no stridor. [] Cardiovascular: Regular rate and rhythm, brisk cap refill [] Lungs & Thorax: Labored breathing, diminished breath sounds bilaterally Abdomen: Soft, nondistended. Skin: Warm, dry, no erythema, no rash. [] Back: Unremarkable Extremities: No deformities, range of motion grossly intact, no lower extremity edema [] Neurologic: Alert and oriented X 3, no focal deficits noted. [] Psychologic: Affect normal, judgement normal, mood normal. [] EKG: EKG: Sinus rhythm, heart rate in the 60s minute, normal axis, no STEMI [] Radiology/Procedures: Radiology/Procedures: [][address] [address] IMAGING REPORT Signed PATIENT: CEM ABARCA ACCOUNT: [id number] : 1945 LOCATION: ER AGE: 76 SEX: F EXAM STATUS: REG ER ORD. PHYSICIAN: CLAY NORMAN MD REASON: COPD PROCEDURE: CHEST AP ONLY XR CHEST 1V Clinical Indication: Reason: COPD Comparison: AP chest May 17, 2021. Findings: The cardiomediastinal silhouette is normal. Spiculated right right hilar nodule has mildly increased in size. The nodule measures up to 2.6 x 3.7 cm. Lungs are hyperexpanded. There is upper lung emphysema. Question whether there is a new subcentimeter nodule in the left lung apex. There is no pneumothorax. No pleural effusion is appreciated. No acute bone abnormality. IMPRESSION: 1. Spiculated right hilar nodule has mildly increased in size, suspicious for lung malignancy. 2. COPD. Electronically signed by: Keyon Garcia MD (08/16/2021 11:23 AM) [id number] DICTATED AND SIGNED BY: KEYON GARCIA MD DATE: 08/16/21 1117 CC: CLAY NORMAN MD; TOM ROPER MD ~MTH0 0 Heart Score: C/O Chest Pain: No HEART Score for Chest Pain: HEART Score for Chest Pain Response (Comments) Value History Slighlty/Non-Suspicious 0 ECG Normal 0 Age > 65 2 Risk Factors 1 or 2 Risk Factors 1 Troponin < Normal Limit 0 Total 3 Risk Factors: Risk Factors: DM, Current or recent (<one month) smoker, HTN, HLP, family history of CAD, obesity. Risk Scores: Score 0 - 3: 2.5% MACE over next 6 weeks - Discharge Home Score 4 - 6: 20.3% MACE over next 6 weeks - Admit for Clinical Observation Score 7 - 10: 72.7% MACE over next 6 weeks - Early Invasive Strategies Course & Med Decision Making: Course & Med Decision Making Pertinent Labs and Imaging studies reviewed. (See chart for details) Discussed admission for repeated treatment versus discharge. Patient states that she is feeling much better and would like to go home. [] Dragon Disclaimer: Dragjonathan Disclaimer: This electronic medical record was generated, in whole or in part, using a voice recognition dictation system. Departure Departure: Impression: Primary Impression: COPD exacerbation Disposition: HOME / SELF CARE / HOMELESS Condition: IMPROVED Referrals: TOM ROPER MD (PCP) Patient Instructions: Chronic Obstructive Pulmonary Disease Exacerbation Scripts Azithromycin (AZITHROMYCIN TABLET) 250 Mg Tablet 1 PKG PO UD for antibiotic for 5 Days, #6 TAB 0 Refills 2 the first day followed by 1 for days 2-5 Prov: CLAY NORMAN MD 08/16/21 Prednisone (PREDNISONE) 50 Mg Tablet 1 TAB PO DAILY for steroid for 5 Days, #5 TAB Prov: CLAY NORMAN MD 08/16/21 CLAY NORMAN MD Aug 16, 2021 10:21
[2021-08-16] MEDS ORDERED: methylPREDNISolone SOD SUCC PF 125 MG/2 ML VIAL. IV ONE (10:30)
[2021-08-16] MEDS ORDERED: IPRATRPIUM/ALBUTEROL 0.5/2.5MG 3 ML NEBU. NEB ONE (10:30)
[2021-08-16 10:55] LABS: BASO % 1 % (0-3); EOS # 0.1 x10^3/uL (0.0-0.7); EOS % 1 % (0-3); HEMATOCRIT 39.5 % (36.0-47.0); HEMOGLOBIN 13.2 g/dL (12.0-15.5); LYMPH # 0.8 x10^3/uL (1.0-4.8); LYMPH % 15 % (24-48); MEAN CORPUSCULAR HEMOGLOBIN 31 pg (25-35); MEAN CORPUSCULAR HGB CONC 34 g/dL (31-37); MEAN CORPUSCULAR VOLUME 92 fL (79-100); MONO # 0.5 x10^3/uL (0.0-1.1); MONO % 9 % (0-9); NEUT # 4.3 x10^3uL (1.8-7.7); NEUT % 74 % (31-73); PLATELET COUNT 217 x10^3/uL (140-400); RED BLOOD COUNT 4.31 x10^6/uL (3.50-5.40); WHITE BLOOD COUNT 5.8 x10^3/uL (4.0-11.0)
[2021-08-16 11:10] LABS: CALCIUM 9.3 mg/dL (8.5-10.1); CREATININE 0.7 mg/dL (0.6-1.0); GFR 81.4; POTASSIUM 4.2 mmol/L (3.5-5.1)
[2021-08-16 11:22] LABS: ALBUMIN/GLOBULIN RATIO 1.3 (1.0-1.7); MAGNESIUM 2.3 mg/dL (1.8-2.4); TOTAL BILIRUBIN 0.6 mg/dL (0.2-1.0); TOTAL PROTEIN 7.1 g/dL (6.4-8.2)
--- NOTE | 2021-08-16 11:26 | RAD ---
XR CHEST 1V Clinical Indication: Reason: COPD Comparison: AP chest May 17, 2021. Findings: The cardiomediastinal silhouette is normal. Spiculated right right hilar nodule has mildly increased in size. The nodule measures up to 2.6 x 3.7 cm. Lungs are hyperexpanded. There is upper lung emphyse ma. Question whether there is a new subcentimeter nodule in the left lung apex. There is no pneumotho rax. No pleural effusion is appreciated. No acute bone abnormality. IMPRESSION: 1. Spiculated right hilar nodule has mildly increased in size, suspicious for lung malignancy. 2. COPD. Electronically signed by: Keyon Garcia MD (08/16/2021 11:23 AM) [id number]
[2021-08-16 11:31] LABS: BGAS PH 7.53 (7.35-7.45)
[2021-08-16] MEDS ORDERED: AZIT250T6 PO (14:03)
[2021-08-16] MEDS ORDERED: PRED50TA PO (14:03)
[2021-08-16 14:19] VITALS: BP 105/57
--- NOTE | 2021-08-17 06:41 | EKG ---
[address] [address] Test Date: 2021-08-16 Test Time: 12:14:15 Pat Name: CEM ABARCA Department: Room: Gender: F [employer]: MARIO ALBERTO : 1945 Requested By: CLAY NORMAN Order Number: [id number] Reading MD: Mekhi Munroe Measurements Intervals Hana Rate: 96 P: 90 ID: [id number] QRS: 90 QRSD: 78 T: 39 QT: 352 QTc: 446 Interpretive Statements SINUS RHYTHM QRS(T) CONTOUR ABNORMALITY CONSISTENT WITH ANTEROSEPTAL INFARCT PROBABLY OLD ABNORMAL ECG Electronically Signed On 08-19-2021 8:50:00 PROGRAMMING SPECIALIST by Mekhi Munroe
== END 2021-08-16 14:19 | disposition home or self-care (01) ==
LOC: ER 10:08
DX: J44.1 Chronic obstructive pulmonary disease with (acute) exacerbation (principal); F41.9 Anxiety disorder, unspecified; M19.90 Unspecified osteoarthritis, unspecified site; Z87.891 Personal history of nicotine dependence; Z88.8 Allergy status to other drugs, medicaments and biological substances; Z88.7 Allergy status to serum and vaccine
CPT/HCPCS: 36415; 36600; 71045; 80053; 82803; 83735; 83880; 85025; 85379; 93005; 94640; 94660; 96374; 99285; J2930